=== PATIENT | male | born 1960 | race Caucasian/White ===

== ENCOUNTER 2019-03-05 11:12 | Emergency (ER) | payer MEDICARE ==
[2019-03-05] MEDS ORDERED: CARAFATE1 G/10 ML PO (11:30)
[2019-03-05] MEDS ORDERED: EDURANT PO (11:31)
[2019-03-05] MEDS ORDERED: TIVICAY50 MG PO (11:32)
[2019-03-05] MEDS ORDERED: PREZCOBIX PO (11:32)
[2019-03-05] MEDS ORDERED: MIDODRINE HCL10 MG PO (11:33)
[2019-03-05] MEDS ORDERED: ULTRAM50 MG PO (11:39)
[2019-03-05 12:08] LABS: BASOPHILS 0.3 % (0-2); EOSINOPHILS 2.6 % (0-7); HEMATOCRIT 25.4 % (42.0-54.0); HEMOGLOBIN 8.1 g/dL (13.5-17.5); IMMATURE GRANULOCYTES 0.6 % (0-5); LYMPHOCYTES 15.6 % (15-50); MCH 27.6 pg (26.0-34.0); MCHC 31.9 g/dL (31.0-37.0); MCV 86.7 fL (80.0-100.0); MEAN PLATELET VOLUME 8.2 fL (7.4-10.4); MONOCYTES 8.7 % (2-11); NEUTROPHILS 72.2 % (40-80); PLATELET COUNT 354 10x3/uL (130-400); RBC 2.93 10x6/uL (4.20-6.10); RDW 18.4 % (11.5-14.5); WBC 13.2 10x3/uL (4.8-10.8)
[2019-03-05 12:21] LABS: ALBUMIN 2.1 g/dL (3.4-5.0); ALKALINE PHOSPHATASE 40 U/L (46-116); ALT (SGPT) 8 U/L (10-68); BILIRUBIN - TOTAL 1.23 mg/dL (0.2-1.3); CALC OSMOLALITY 272 mosm/kg (275-300); CALCIUM 9.2 mg/dL (8.5-10.1); CARBON DIOXIDE 29.9 mmol/L (21.0-32.0); CHLORIDE - SERUM 98 mmol/L (98-107); CREATININE - SERUM 3.7 mg/dL (0.6-1.3); GLUCOSE 99 mg/dL (74-106); POTASSIUM - SERUM 3.6 mmol/L (3.5-5.1); PROTEIN - SERUM 6.1 g/dL (6.4-8.2); SODIUM 135 mmol/L (136-145); UREA NITROGEN 20 mg/dL (7-18); eGFR NON AFRICAN AMERICAN 18 mL/min (90-120)
[2019-03-05 12:31] LABS: AMYLASE - SERUM 66 U/L (25-115); CKMB 0.6 U/L (0.0-3.6); CREATINE KINASE 23 UL (21-232); LIPASE 145 U/L (73-393); MAGNESIUM - SERUM 1.4 mg/dL (1.8-2.4); TROPONIN-I < 0.017 ng/mL (0.000-0.060)
[2019-03-05 13:23] LABS: APTT 43.5 SECONDS (22.8-39.4); INR 1.23 (0.85-1.17)
[2019-03-05] MEDS ORDERED: ZOFRAN ODT4 MG/UDTAB PO (14:02)
[2019-03-05] MEDS ORDERED: LOMOTIL 2.5-0.1 EAC1 PO (14:02)
[2019-03-05 14:36] VITALS: BP 123/81
[2019-03-07 15:42] VITALS: BMI 18.8
== END 2019-03-05 14:37 | disposition home or self-care (01) ==
LOC: D.ER 11:12
PROVIDERS: Emergency Medicine
DX: R19.7 Diarrhea, unspecified (principal); D64.9 Anemia, unspecified; I12.0 Hypertensive chronic kidney disease with stage 5 chronic kidney disease or end stage renal disease; N18.6 End stage renal disease; E83.42 Hypomagnesemia; R11.10 Vomiting, unspecified

== ENCOUNTER 2019-03-06 14:15 | Inpatient (IN) | payer MEDICARE ==
[~2019-03-06] VITALS: Ht 170.2 cm; Wt 52.1 kg
[~2019-03-06 14:15] MED LIST: CARAFATE1 G/10 ML PO; EDURANT PO; LOMOTIL 2.5-0.1 EAC1 PO; MIDODRINE HCL10 MG PO; PREZCOBIX PO; TIVICAY50 MG PO; ULTRAM50 MG PO; ZOFRAN ODT4 MG/UDTAB PO
[2019-03-06 18:39] VITALS: BP 93/57; BMI 19.0
[2019-03-06 19:16] LABS: BASOPHILS 0.4 % (0-2); EOSINOPHILS 3.5 % (0-7); HEMATOCRIT 20.2 % (42.0-54.0); IMMATURE GRANULOCYTES 1.4 % (0-5); LYMPHOCYTES 15.7 % (15-50); MCHC 30.7 g/dL (31.0-37.0); MCV 87.8 fL (80.0-100.0); MEAN PLATELET VOLUME 8.4 fL (7.4-10.4); MONOCYTES 8.6 % (2-11); NEUTROPHILS 70.4 % (40-80); PLATELET COUNT 397 10x3/uL (130-400); RDW 18.5 % (11.5-14.5)
[2019-03-06 19:20] LABS: HEMOGLOBIN 6.2 g/dL (13.5-17.5)
[2019-03-06 19:27] LABS: INR 1.44 (0.85-1.17)
[2019-03-06 19:32] LABS: ALBUMIN 2.1 g/dL (3.4-5.0); ANION GAP 14.5 mmol/L (8-16); BILIRUBIN - TOTAL 1.16 mg/dL (0.2-1.3); CALCIUM 8.2 mg/dL (8.5-10.1); CARBON DIOXIDE 26.5 mmol/L (21.0-32.0); MAGNESIUM - SERUM 1.6 mg/dL (1.8-2.4); PROTEIN - SERUM 5.5 g/dL (6.4-8.2); VANCOMYCIN - RANDOM 5.7 ug/mL (10.0-20.0)
--- NOTE | 2019-03-06 19:40 | NUR ---
EASILY AROUSES AND ANSEWRS QUESTIONS SKIN WARM AND DRY LCTA NO IV ACCESS BED IS LOW AND LOCKED AT THIS TIME
--- NOTE | 2019-03-06 19:50 | NUR ---
NOTED CRITICLE HAND H IV ATTEMPTED BY ME X2 AND FAILED IV OBTAINED BY RN.
[2019-03-06 20:46] VITALS: BP 87/52
--- NOTE | 2019-03-07 | NUR ---
AFEW ATTEMPTS HAVE BEEN MADE TO WANG THE PRBC THAT ARE ORDERED TO BE INFUSED WITH NO RESULTS
[2019-03-07 00:53] VITALS: BP 88/50
[2019-03-07 04:14] VITALS: BP 119/49
--- NOTE | 2019-03-07 05:09 | NUR ---
I have reviewed this patient and I concur with the Shift Assessment completed by the Licensed Practical Nurse today this shift.
[2019-03-07 07:08] LABS: ALBUMIN 1.8 g/dL (3.4-5.0); ANION GAP 14.4 mmol/L (8-16); BILIRUBIN - TOTAL 0.92 mg/dL (0.2-1.3); CALCIUM 7.8 mg/dL (8.5-10.1); CARBON DIOXIDE 25.1 mmol/L (21.0-32.0); CREATININE - SERUM 5.4 mg/dL (0.6-1.3); PHOSPHOROUS 2.3 mg/dL (2.5-4.9); POTASSIUM - SERUM 4.5 mmol/L (3.5-5.1); PROTEIN - SERUM 5.1 g/dL (6.4-8.2); VANCOMYCIN - RANDOM 6.1 ug/mL (10.0-20.0)
[2019-03-07 07:18] LABS: BASOPHILS 0.4 % (0-2); EOSINOPHILS 5.8 % (0-7); IMMATURE GRANULOCYTES 2.9 % (0-5); LYMPHOCYTES 17.2 % (15-50); MCH 27.9 pg (26.0-34.0); MCV 87.4 fL (80.0-100.0); MEAN PLATELET VOLUME 8.7 fL (7.4-10.4); MONOCYTES 9.1 % (2-11); NEUTROPHILS 64.6 % (40-80); RBC 2.22 10x6/uL (4.20-6.10); RDW 16.9 % (11.5-14.5); WBC 15.9 10x3/uL (4.8-10.8)
[2019-03-07 07:26] LABS: PLATELET COUNT 308 10x3/uL (130-400)
[2019-03-07 07:27] LABS: HEMATOCRIT 19.4 % (42.0-54.0); HEMOGLOBIN 6.2 g/dL (13.5-17.5)
[2019-03-07 08:00] VITALS: BP 106/75
--- NOTE | 2019-03-07 08:07 | NUR ---
AM ROUNDS COMPLETED. INTRODUCED MYSELF TO PT PRIMARY RN FOR TODAYS SHIFT. PT IS A&O SITTING UP IN BED RESTING QUIETLY. PT HAS CRITICAL HGB AND HCT LEVELS. 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 MARIBEL HANKS PRINTING SUPERVISOR ON FLOOR AND 2 UNITS OF PRBCS HAVE BEEN ORDERED. PT VERBALIZED UNDERSTANDING. PT IS SUPPOSE TO HAVE DIALYSIS TODAY ALONG WITH SURGERY. WILL [facility] DIALYSIS TO SEE IF THEY CAN DO IT MILDRED. PT DENIES ANY DIZZINESS JUST STATES HE IS VERY WEAK AND FEELS SO SICK LATELY. NO IMMEDIATE NEEDS AT THIS TIME. WILL CTM.
--- NOTE | 2019-03-07 11:07 | NUR ---
DIALYSIS CALLED FOR PT. BROUGHT PT DOWN VIA BED ALONG WITH 2 UNITS OF BLOOD FOR PT TO RECIEVE PRIOR TO SURGERY. OBTAINED CONSENTS FOR HEMESPLIT EXCHANGE. PT VERBALIZED UNDERSTANDING AND DENIES ANY CURRENT NEEDS. WILL CTM.
--- NOTE | 2019-03-07 12:54 | NUR ---
PT C/O PAIN AND NAUSEA WHILE STILL IN DIALYSIS. CAME DOWN AND ADMINISTERED PRN ZOFRAN AND PRN BUPRENORPHINE VIA L.FA PIV. PT VOICED THANKS AND DENIES ANY FURTHER NEEDS AT THIS TIME. ABOUT 1HR REMAINING ON DIALYSIS. WILL CTM.
[2019-03-07 14:17] VITALS: BMI 18.8
--- NOTE | 2019-03-07 14:45 | NUR ---
PT TX COMPLETE. 2 UNITS PRBC'S GIVEN. 1431ML TAKEN OFF. PT B/P STARTED TO DROP AND UF WAS TURNED OFF. EPOGIN GIVEN. LUMENS HEPRANIZED, AND NEW DRESSING PLACED. REPORT GIVEN TO Ward FAY RN.
--- NOTE | 2019-03-07 15:09 | NUR ---
PT BACK FROM DIALYSIS. AWAKE A&O SITTING UP IN BED RESTING QUIETLY. PT REC'D BOTH UNITS OF PRBCS ON DIALYSIS WITHOUT ANY ISSUES OR REACTIONS NOTED. PT STILL NPO WAITING PATIENTLY FOR SURGERY. EXPLAINED TO PT NEED FOR URINE SPECIMEN ALONG WITH STOOL AND PROVIDED PT WITH SUPPLIES. PT VERBALIZED UNDERSTANDING AND DENIES ANY QUESTIONS OR CONCERNS. NO CURRENT NEEDS. WILL CTM.
[2019-03-07 15:30] LABS: HEMATOCRIT 29.4 % (42.0-54.0); HEMOGLOBIN 9.9 g/dL (13.5-17.5)
[2019-03-07 15:42] VITALS: Ht 170.2 cm; Wt 52.1 kg
[2019-03-07 16:30] VITALS: BP 110/72
--- NOTE | 2019-03-07 16:30 | MORECARE ---
CASE MANAGEMENT DISCHARGE SUMMARY PATIENT: HALLIE COE UNIT: [id number] ADM DATE: 03/06/19 AGE: 58 : 62 SEX: M ROOM/BED: D.2140 AUTHOR: WILD QUINTEROS PHYSICIAN: REFERRING PHYSICIAN: MATEO HOLLIS MD DATE OF SERVICE: 03/07/19 Discharge Plan Patient Name: HALLIE COE [facility] [facility] 1960 Planned Disposition: [facility] Facility Anticipated Discharge Date: Discharge Date: Expected LOS: Initial Reviewer: [email or web address] Initial Review Date: 03/07/2019 Generated: 03/07/19 5:30 pm DCPIA - Discharge Planning Initial Assessment Updated by [email or web address]: Kiel Goff on 03/07/19 4:26 pm * Is the patient Alert and Oriented? Yes * How many steps to enter\exit or inside your home? * PCP DALLAS GUTHRIE, [facility] IN [place] * Pharmacy [facility] - HIV MEDICATIONS * Preadmission Environment Home with Family * ADLs Partial Dependent * Partial ADLs (Assistance needed) Bathing * Equipment Nebulizer Oxygen Rolling Walker Shower Chair * Other Equipment HOME AND PORTABLE OXYGEN [facility] - MEDICAL EQUIPMENT PROVIDER * List name and contact numbers for known caregivers / representatives who currently or will assist patient after discharge: MARISOL LEWIS, MOTHER, * Verbal permission to speak to the caregivers and representatives has been obtained from the patient. No * Community resources currently utilized Other * Please name any agencies selected above. [facility]IENT [facility]IAL[facility]IS, [facility], [facility], [facility], [facility] * Additional services required to return to the preadmission environment? Yes * Can the patient safely return to the preadmission environment? No * Has this patient been hospitalized within the prior 30 days at any hospital? No Patient Name: HALLIE COE Page [id number] at 1630 All edits/amendments must be made on the electronic document DICTATION DATE: 03/07/191628 SOUND TESTER: EDU 03/07/19 162 RPT#: [id number] DC DATE: STATUS: ADM IN [facility] [address] [place] [address] END OF REPORT
--- NOTE | 2019-03-07 16:55 | MORECARE ---
CASE MANAGEMENT DISCHARGE SUMMARY PATIENT: HALLIE COE UNIT: [id number] ADM DATE: 03/06/19 AGE: 58 : 62 SEX: M ROOM/BED: D.2140 AUTHOR: ALDAIR,DOC PHYSICIAN: REFERRING PHYSICIAN: MATEO HOLLIS MD DATE OF SERVICE: 03/07/19 Discharge Plan Patient Name: HALLIE COE [facility] [facility] 1960 Planned Disposition: Jail Facility Anticipated Discharge Date: Discharge Date: Expected LOS: Initial Reviewer: [email or web address] Initial Review Date: 03/07/2019 Generated: 03/07/19 5:54 pm Comments DCP- Discharge Planning Updated by [email or web address]: Kiel Goff on 03/07/19 3:[address] Patient Name: HALLIE COE Encounter No: [id number] : 1960 Primary Insurance: MEDICARE A & B Anticipated DC Date: Planned Disposition: Jail Facility External Planned Provider: FIRST ACCEPTING FACILITY IN [place], MEDICARE REHAB BED DISCHARGE PLANNING NOTE: CM RECEIVED ORDER FOR "JAIL BASICALLY". CM MET WITH PT IN ROOM TO DISCUSS DISCHARGE PLANNING AND NEEDS. PT REPORTS LIVING AT HOME DEPENDENTLY WITH HIS MOTHER AND STEP FATHER. PT REPORTS INDEPENDENCE IN MEDICATION MANAGEMENT AND TOILETING. PT STATES HE WAS UNABLE TO FEED HIMSELF; CM ASKED FOR CLAIFICATION, PT STATES THAT HIS PARENTS HAD LOCKED HIM IN HIS ROOM AND WOULD NOT GIVE HIM ANY FOOD OR WATER. PT STATES HE IS NOT ABLE TO COOK FOR HIMSELF AND HIS MOTHER WOULD NOT COOK FOR HIM OR BRING HIM FOOD OR WATER AND EXPECTED HIM TO GET UP AND DO IT HIMSELF. PT STATES HE HAD NO BATH FOR 6 WEEKS BECAUSE HE IS NOT ABLE AND HIS PARENTS WILL NOT HELP HIM. PT HAS SHOWER CHAIR, ROLLING WALKER WITH SEAT AND BRAKES, NEBLUIZER AND HOME AND PORTABLE OXYGEN FROM [facility] OUT OF [facility]. PT HAS NO OUTSIDE SERVICES ASSISTING IN THE HOME. PT DEPENDS ON HIS MOTHER FOR TRANSPORT TO AND FROM OUTPATIENT DIALYSIS IN [place] ON [address] SCHEDULE. CM DISCUSSED AVAILABILITY OF HOME HEALTH, REHAB SERVICES AND MEDICAL EQUIPMENT. PT STATES HE CANNOT TAKE CARE OF HIMSELF AND WANTS JAIL PLACEMENT IN [place], NO FACILITY PREFERENCE, SO HE CAN BE CLOSE TO HOME AND MAYBE BE ABLE TO VISIT HER ONCE IN A WHILE. 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 PT DOES NOT YET RECEIVE DISABILITY AND HAS AN SOCIAL SERVICES ANALYST FIGHTING FOR IT. PT REPORTS HE HAD BLUE CROSS PRIVATE OPTION BUT WAS DROPPED WHEN HE BECAME MEDICARE ELIGIBLE AND HAS TO REAPPLY FOR MEDICAID. PT REPORTS HAVING BIPOLAR AND MAJOR DEPRESSIVE DISORDER. CM EXPLAINED THAT CM WILL NEED TO COMPLETE BJORN SCREENING WITH PT'S ASSISTANCE. CM ALSO EXPLAINED THAT CM WILL BE CALLING ADULT PROTECTIVE SERVICES WITH PT'S ALLEGATION OF NEGLECT BY HIS PARENTS. CM EXPLAINED THAT PT'S MEDICATIONS MAY BE TOO EXPENSIVE TO ENTER CUSTODIAL FACILITY; PT STATES IF THAT IS A PROBLEM HE COULD JUST NOT TAKE THE EXPENSIVE HIV MEDICATIONS. CM EXPLAINED PLACEMENT PROCESS AND BJORN SCREENING PROCESS. CM PROVIDED CHOICE LISTING FOR NURSING HOMES, PT SIGNED CHOICE FOR ANY IN [place]. CM CALLED ADULT PROTECTIVE SERVICES, , PROVIDED REFERRAL FOR ALLEGATIONS OF NEGLECT. . CM TO COMPLETE BJORN SCREENING AND SEND REFERRALS TO ALL JAIL'S IN [place] FOR SKILLED AND WAREHOUSE PACKER CARE PLACEMENT CONSIDERATION SOON POSSIBLE. Kiel Goff, CASE MANAGEMENT DCPIA - Discharge Planning Initial Assessment Updated by [email or web address]: Kiel Goff on 03/07/19 4:26 pm * Is the patient Alert and Oriented? Yes * How many steps to enter\\exit or inside your home? * PCP DALLAS GUTHRIE, [facility] [place] * Pharmacy [facility] [place] - HIV MEDICATIONS * Preadmission Environment Home with Family * ADLs Partial Dependent * Partial ADLs (Assistance needed) Bathing * Equipment Nebulizer Oxygen Rolling Walker Shower Chair * Other Equipment HOME AND PORTABLE OXYGEN [facility] - MEDICAL EQUIPMENT PROVIDER * List name and contact numbers for known caregivers / representatives who currently or will assist patient after discharge: MARISOL LEWIS, MOTHER, * Verbal permission to speak to the caregivers and representatives has been obtained from the patient. No * Community resources currently utilized Other * Please name any agencies selected above. OUTPATIENT DIALYSIS, [facility], [facility], [facility], [facility] * Additional services required to return to the preadmission environment? Yes * Can the patient safely return to the preadmission environment? No * Has this patient been hospitalized within the prior 30 days at any hospital? No Coverage Notice Reviewer: [id number] Sam Goff Notice Issued Date-Time: 03/07/2019 16:10 Notice Type: Patient Choice Letter Notice Delivered To: Patient Relationship to Patient: Pet Sitting Name: Delivery Method: HAND - Hand Delivered Gunjan Days: Prior Verbal Notification: Recipient Understood Notice: Yes Recipient Signature: Yes Med Rec Note Co-signed by Attending: Coverage Notice Comment: ANY NURSING FACILITY IN [facility] export: 03/07/19 3:30 pm Patient Name: HALLIE COE Page [id number] at 1655 All edits/amendments must be made on the electronic document DICTATION DATE: 03/07/191653 COMMUNITY NUTRITION EDUCATOR: EDU 03/07/191653 RPT#: [id number] DC DATE: STATUS: ADM IN [facility] [address] [place] [address] END OF REPORT
--- NOTE | 2019-03-07 17:41 | NUR ---
PT C/O NAUSEA AND PAIN REQUESTING AND PROVIDED WITH PRN PAIN MEDICATION. PT SITTING UP IN BED EATING A DINNER TRAY WHEN HE WAS SUPPOSE TO BE NPO AND HAD A SIGN UP ON HIS DOOR HOWEVER DIETARY STILL PROCEEDED TO FEED PT AND PT JUST ATE ABOUT 75% OF HIS DINNER. CALLED SURGERY AND THEY CANCELLED IT, UNSURE IF THEY WERE ABLE TO GET TO HIM TODAY ANYWAYS. PT VERBALIZED UNDERSTANDING TO BE NPO AFTER MIDNIGHT TONIGHT FOR PLANNED SURGERY. WILL MAKE HIM NPO AFTER MIDNIGHT AND CPOC.
--- NOTE | 2019-03-07 19:25 | NUR ---
RESUMING PT CARE. PT LAYING IN BED RESTING COMFORTABLY WITH EYES CLOSED. NO S/S OF DISTRESS. BED IN LOW POSITION WITH CALL LIGHT IN REACH. WILL CONTINUE TO MONITOR AND FOLLOW PLAN OF CARE.
[2019-03-07 21:16] VITALS: BP 103/58
[2019-03-07 23:59] VITALS: BP 105/62
[2019-03-08] VITALS (12 sets, daily range): BP systolic 101–135; BP diastolic 52–79
--- NOTE | 2019-03-08 04:43 | NUR ---
I have reviewed this patient and I concur with the Shift Assessment completed by the Licensed Practical Nurse today this shift.
[2019-03-08 07:04] LABS: ALBUMIN 2.2 g/dL (3.4-5.0); ANION GAP 16.1 mmol/L (8-16); BASOPHILS 0.4 % (0-2); BILIRUBIN - TOTAL 0.49 mg/dL (0.2-1.3); CALCIUM 8.2 mg/dL (8.5-10.1); CARBON DIOXIDE 24.2 mmol/L (21.0-32.0); CREATININE - SERUM 3.6 mg/dL (0.6-1.3); EOSINOPHILS 3.9 % (0-7); HEMATOCRIT 26.7 % (42.0-54.0); HEMOGLOBIN 8.9 g/dL (13.5-17.5); IMMATURE GRANULOCYTES 2.7 % (0-5); LYMPHOCYTES 15.6 % (15-50); MCH 28.3 pg (26.0-34.0); MCHC 33.3 g/dL (31.0-37.0); MEAN PLATELET VOLUME 8.9 fL (7.4-10.4); MONOCYTES 7.7 % (2-11); NEUTROPHILS 69.7 % (40-80); PLATELET COUNT 301 10x3/uL (130-400); POTASSIUM - SERUM 3.3 mmol/L (3.5-5.1); PROTEIN - SERUM 6.1 g/dL (6.4-8.2); RDW 17.3 % (11.5-14.5); VANCOMYCIN - RANDOM 3.9 ug/mL (10.0-20.0); WBC 18.4 10x3/uL (4.8-10.8)
[2019-03-08 07:05] LABS: RBC 3.14 10x6/uL (4.20-6.10)
[2019-03-08 07:27] LABS: HEPATITIS C ANTIBODY 0.1 S/CO RAT (0.0-0.9)
--- NOTE | 2019-03-08 08:01 | NUR ---
PATIENT NOTIFIED OF NPO. VERBALIZED UNDERSTANDING. ZOFRAN GIVEN IVP SLOWLY OVER 2 MINUTES FOR NAUSEA. IV INTACT. CALL LIGHT WITHIN REACH.
--- NOTE | 2019-03-08 09:02 | MORECARE ---
CASE MANAGEMENT DISCHARGE SUMMARY PATIENT: HALLIE COE UNIT: [id number] ADM DATE: 03/06/19 AGE: 58 : 62 SEX: M ROOM/BED: D.2140 AUTHOR: ALDAIR,DOC PHYSICIAN: REFERRING PHYSICIAN: MATEO HOLLIS MD DATE OF SERVICE: 03/08/19 Discharge Plan Patient Name: HALLIE COE Facility: [facility]:[place] : 1960 Planned Disposition: Custodial Facility Anticipated Discharge Date: Discharge Date: Expected LOS: Initial Reviewer: [email or web address] Initial Review Date: 03/07/2019 Generated: 03/08/19 10:02 am Comments DCP- Discharge Planning Updated by [email or web address]: Kiel Goff on 03/07/19 3:[address] Patient Name: HALLIE COE Encounter No: [id number] : 1960 Primary Insurance: MEDICARE A & B Anticipated DC Date: Planned Disposition: Custodial Facility External Planned Provider: FIRST ACCEPTING FACILITY IN [place], MEDICARE REHAB BED DISCHARGE PLANNING NOTE: CM RECEIVED ORDER FOR "[facility]ALLY". CM MET WITH PT IN ROOM TO DISCUSS DISCHARGE PLANNING AND NEEDS. PT REPORTS LIVING AT HOME DEPENDENTLY WITH HIS MOTHER AND STEP FATHER. PT REPORTS INDEPENDENCE IN MEDICATION MANAGEMENT AND TOILETING. PT STATES HE WAS UNABLE TO FEED HIMSELF; CM ASKED FOR CLAIFICATION, PT STATES THAT HIS PARENTS HAD LOCKED HIM IN HIS ROOM AND WOULD NOT GIVE HIM ANY FOOD OR WATER. PT STATES HE IS NOT ABLE TO COOK FOR HIMSELF AND HIS MOTHER WOULD NOT COOK FOR HIM OR BRING HIM FOOD OR WATER AND EXPECTED HIM TO GET UP AND DO IT HIMSELF. PT STATES HE HAD NO BATH FOR 6 WEEKS BECAUSE HE IS NOT ABLE AND HIS PARENTS WILL NOT HELP HIM. PT HAS SHOWER CHAIR, ROLLING WALKER WITH SEAT AND BRAKES, NEBLUIZER AND HOME AND PORTABLE OXYGEN FROM [facility] [place] OUT OF [facility]. PT HAS NO OUTSIDE SERVICES ASSISTING IN THE HOME. PT DEPENDS ON HIS MOTHER FOR TRANSPORT TO AND FROM OUTPATIENT DIALYSIS IN [place] ON [address] SCHEDULE. CM DISCUSSED AVAILABILITY OF HOME HEALTH, REHAB SERVICES AND MEDICAL EQUIPMENT. PT STATES HE CANNOT TAKE CARE OF HIMSELF AND WANTS [facility] PLACEMENT IN [place], NO FACILITY PREFERENCE, SO HE CAN BE CLOSE TO HOME AND MAYBE BE ABLE TO VISIT HER ONCE IN A WHILE. 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 PT DOES NOT YET RECEIVE DISABILITY AND HAS AN DREDGE OPERATOR FIGHTING FOR IT. PT REPORTS HE HAD BLUE CROSS PRIVATE OPTION BUT WAS DROPPED WHEN HE BECAME MEDICARE ELIGIBLE AND HAS TO REAPPLY FOR MEDICAID. PT REPORTS HAVING BIPOLAR AND MAJOR DEPRESSIVE DISORDER. CM EXPLAINED THAT CM WILL NEED TO COMPLETE BJORN SCREENING WITH PT'S ASSISTANCE. CM ALSO EXPLAINED THAT CM WILL BE CALLING ADULT PROTECTIVE SERVICES WITH PT'S ALLEGATION OF NEGLECT BY HIS PARENTS. CM EXPLAINED THAT PT'S MEDICATIONS MAY BE TOO EXPENSIVE TO ENTER USP FACILITY; PT STATES IF THAT IS A PROBLEM HE COULD JUST NOT TAKE THE EXPENSIVE HIV MEDICATIONS. CM EXPLAINED PLACEMENT PROCESS AND BJORN SCREENING PROCESS. CM PROVIDED CHOICE LISTING FOR NURSING HOMES, PT SIGNED CHOICE FOR ANY IN [place]. CM CALLED ADULT PROTECTIVE SERVICES, , PROVIDED REFERRAL FOR ALLEGATIONS OF NEGLECT. . CM TO COMPLETE BJORN SCREENING AND SEND REFERRALS TO ALL CHCF'S IN [place] FOR SKILLED AND USP CARE PLACEMENT CONSIDERATION SOON POSSIBLE. Kiel Goff, CASE MANAGEMENT DCPIA - Discharge Planning Initial Assessment Updated by [id number]: Kiel Goff on 03/07/19 4:26 pm * Is the patient Alert and Oriented? Yes * How many steps to enter\\exit or inside your home? * PCP DALLAS GUTHRIE, [facility] IN [place] * Pharmacy [facility] - [facility] * Preadmission Environment Home with Family * ADLs Partial Dependent * Partial ADLs (Assistance needed) Bathing * Equipment Nebulizer Oxygen Rolling Walker Shower Chair * Other Equipment HOME AND PORTABLE OXYGEN [employer] - MEDICAL EQUIPMENT PROVIDER * List name and contact numbers for known caregivers / representatives who currently or will assist patient after discharge: MARISOL LEWIS, MOTHER, * Verbal permission to speak to the caregivers and representatives has been obtained from the patient. No * Community resources currently utilized Other * Please name any agencies selected above. OUTPATIENT DIALYSIS, [facility], [facility], [facility], [facility] * Additional services required to return to the preadmission environment? Yes * Can the patient safely return to the preadmission environment? No * Has this patient been hospitalized within the prior 30 days at any hospital? No External Providers External Provider: [facility] Next Contact Date: 03/08/2019 Service Request Date: Service Type: Resolution: Reviewer: Comments: External Provider: [facility] Next Contact Date: 03/08/2019 Service Request Date: Service Type: Resolution: Reviewer: Comments: External Provider: [facility] Next Contact Date: 03/08/2019 Service Request Date: Service Type: Resolution: Reviewer: Comments: External Provider: [facility] Next Contact Date: 03/08/2019 Service Request Date: Service Type: Resolution: Reviewer: Comments: External Provider: [facility] Next Contact Date: 03/08/2019 Service Request Date: Service Type: Resolution: Reviewer: Comments: Coverage Notice Reviewer: [email or web address] Sam Goff Notice Issued Date-Time: 03/07/2019 16:10 Notice Type: Patient Choice Letter Notice Delivered To: Patient Relationship to Patient: Content Assistant Name: Delivery Method: HAND - Hand Delivered Gunjan Days: Prior Verbal Notification: Recipient Understood Notice: Yes Recipient Signature: Yes Med Rec Note Co-signed by Attending: Coverage Notice Comment: ANY NURSING FACILITY IN [place] Last DP export: 03/07/19 3:54 pm Patient Name: HALLIE COE Page 38063 at 0902 All edits/amendments must be made on the electronic document DICTATION DATE: 03/08/19900 TUGBOAT CAPTAIN: EDU 03/08/19900 RPT#: [id number] DC DATE: STATUS: ADM IN [facility] [address] [place] [address] END OF REPORT
[2019-03-08 09:14] LABS: FOLATE (FOLIC ACID) - SERUM 3.5 ng/mL (>3.0)
--- NOTE | 2019-03-08 10:13 | MORECARE ---
CASE MANAGEMENT DISCHARGE SUMMARY PATIENT: HALLIE COE UNIT: [id number] ADM DATE: 03/06/19 AGE: 58 : 62 SEX: M ROOM/BED: D.2140 AUTHOR: ALDAIR,DOC PHYSICIAN: REFERRING PHYSICIAN: MATEO HOLLIS MD DATE OF SERVICE: 03/08/19 Discharge Plan Patient Name: HALLIE COE Facility: [facility]:[place] : 1960 Planned Disposition: Snf Facility Anticipated Discharge Date: Discharge Date: Expected LOS: Initial Reviewer: [id number] Initial Review Date: 03/07/2019 Generated: 03/08/19 11:13 am Comments DCP- Discharge Planning Updated by [id number]: Kiel Goff on 03/08/19 9:[address] Patient Name: HALLIE COE Encounter No: [id number] : 1960 Primary Insurance: MEDICARE A & B Anticipated DC Date: Planned Disposition: Snf Facility External Planned Provider: [facility] IN [place], MEDICARE REHAB BED DISCHARGE PLANNING NOTE: CM MET WITH PT IN ROOM TO COMPLETE BJORN SCREENING FORM. BJORN COMPLETED, PT SIGNED. PT REPORTS HE IS NOT SURE NOW IF HE WANTS TO GO TO [facility] AT DISCHARGE AND STATES HE MAY JUST GO BACK HOME WITH HOME HEALTH. CM ASKED ABOUT THE NEGLECTFUL CARE PT REPORTED YESTERDAY, BRING LOCKED IN ROOM WITH NO FOOD OR WATER. PT STATES THAT HE IS SAFE AT HOME WITH HIS PARENTS AND JUST NEEDS TO FIND A WAY TO GET ASSISTANCE AT HOME TO "TAKE THE PRESSURE OFF OF THEM". PT HAS TALKED TO MEDICAID OFFICE VIA PHONE TODAY AND THEY ARE SENDING HIM INFORMATION REGARDING HIS "QMB" MEDICAID. PT STATES IF HE GOES HOME WITH HOME HEALTH, HE WANTS [facility] FOR PHYSICAL THERAPY AND VINEYARD WORKER TO ASSIST WITH BATHING. CHOICE SIGNED. CM PROVIDED PT WITH HOME HEALTH LISTING AND EXPLAINED HOW TO ACCESS MEDICARE REVIEW INFORMATION FOR PROVIDERS. PT WOULD LIKE CM TO CONTINUE WITH LOOKING FOR [facility], BUT FOR REHAB SERVICES. CM [facility], [facility] AND [facility] IN [place]. ADULT PROTECTIVE SERVICES REFERRAL MADE 03-07-19 FOR ALLEGATIONS OF NEGLECT. . CM WAITING PHYSICIAN SIGNATURES ON BJORN SCREENING AND WILL FAX TO [facility] ONCE PHYSICIAN SIGNATURE HAS BEEN OBTAINED. Kiel Goff, CASE MANAGEMENT DCP- Discharge Planning Updated by [id number]: Kiel Goff on 03/07/19 3:[address] Patient Name: HALLIE COE Encounter No: [id number] : 1960 Primary Insurance: MEDICARE A & B Anticipated DC Date: Planned Disposition: Snf Facility External Planned Provider: FIRST ACCEPTING FACILITY IN [place], MEDICARE REHAB BED DISCHARGE PLANNING NOTE: CM RECEIVED ORDER FOR "[facility]". CM MET WITH PT IN ROOM TO DISCUSS DISCHARGE PLANNING AND NEEDS. PT REPORTS LIVING AT HOME DEPENDENTLY WITH HIS MOTHER AND STEP FATHER. PT REPORTS INDEPENDENCE IN MEDICATION MANAGEMENT AND TOILETING. PT STATES HE WAS UNABLE TO FEED HIMSELF; CM ASKED FOR CLAIFICATION, PT STATES THAT HIS PARENTS HAD LOCKED HIM IN HIS ROOM AND WOULD NOT GIVE HIM ANY FOOD OR WATER. PT STATES HE IS NOT ABLE TO COOK FOR HIMSELF AND HIS MOTHER WOULD NOT COOK FOR HIM OR BRING HIM FOOD OR WATER AND EXPECTED HIM TO GET UP AND DO IT HIMSELF. PT STATES HE HAD NO BATH FOR 6 WEEKS BECAUSE HE IS NOT ABLE AND HIS PARENTS WILL NOT HELP HIM. PT HAS SHOWER CHAIR, ROLLING WALKER WITH SEAT AND BRAKES, NEBLUIZER AND HOME AND PORTABLE OXYGEN FROM [facility]. PT HAS NO OUTSIDE SERVICES ASSISTING IN THE HOME. PT DEPENDS ON HIS MOTHER FOR TRANSPORT TO AND FROM OUTPATIENT DIALYSIS IN [place] ON [address] SCHEDULE. CM DISCUSSED AVAILABILITY OF HOME HEALTH, REHAB SERVICES AND MEDICAL EQUIPMENT. PT STATES HE CANNOT TAKE CARE OF HIMSELF AND WANTS [facility] PL[facility] IN [place], NO FACILITY PREFERENCE, SO HE CAN BE CLOSE TO HOME AND MAYBE BE ABLE TO VISIT HER ONCE IN A WHILE. 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 PT DOES NOT YET RECEIVE DISABILITY AND HAS AN PRECISION FARMING COORDINATOR FIGHTING FOR IT. PT REPORTS HE HAD BLUE CROSS PRIVATE OPTION BUT WAS DROPPED WHEN HE BECAME MEDICARE ELIGIBLE AND HAS TO REAPPLY FOR MEDICAID. PT REPORTS HAVING BIPOLAR AND MAJOR DEPRESSIVE DISORDER. CM EXPLAINED THAT CM WILL NEED TO COMPLETE BJORN SCREENING WITH PT'S ASSISTANCE. CM ALSO EXPLAINED THAT CM WILL BE CALLING ADULT PROTECTIVE SERVICES WITH PT'S ALLEGATION OF NEGLECT BY HIS PARENTS. CM EXPLAINED THAT PT'S MEDICATIONS MAY BE TOO EXPENSIVE TO ENTER SENIOR LIVING FACILITY; PT STATES IF THAT IS A PROBLEM HE COULD JUST NOT TAKE THE EXPENSIVE HIV MEDICATIONS. CM EXPLAINED PLACEMENT PROCESS AND BJORN SCREENING PROCESS. CM PROVIDED CHOICE LISTING FOR NURSING HOMES, PT SIGNED CHOICE FOR ANY IN [place]. CM CALLED ADULT PROTECTIVE SERVICES, , PROVIDED REFERRAL FOR ALLEGATIONS OF NEGLECT. . CM TO COMPLETE BJORN SCREENING AND SEND REFERRALS TO ALL [facility] IN [place] FOR SKILLED AND LEADERSHIP PROGRAM INTERNSHIP CARE PLACEMENT CONSIDERATION SOON POSSIBLE. Kiel Goff, CASE MANAGEMENT DCPIA - Discharge Planning Initial Assessment Updated by [email or web address]: Kiel Goff on 03/07/19 4:26 pm * Is the patient Alert and Oriented? Yes * How many steps to enter\\exit or inside your home? * PCP [facility], [facility] IN [place] * [facility] - HIV MEDICATIONS * Preadmission Environment Home with Family * ADLs Partial Dependent * Partial ADLs (Assistance needed) Bathing * Equipment Nebulizer Oxygen Rolling Walker Shower Chair * Other Equipment HOME AND PORTABLE OXYGEN [facility] - MEDICAL EQUIPMENT PROVIDER * List name and contact numbers for known caregivers / representatives who currently or will assist patient after discharge: MARISOL LEWIS, MOTHER, * Verbal permission to speak to the caregivers and representatives has been obtained from the patient. No * Community resources currently utilized Other * Please name any agencies selected above. OUTPATIENT DIALYSIS, [facility], [facility], 1100, [facility] * Additional services required to return to the preadmission environment? Yes * Can the patient safely return to the preadmission environment? No * Has this patient been hospitalized within the prior 30 days at any hospital? No Coverage Notice Reviewer: [id number] Sam Goff Notice Issued Date-Time: 03/07/2019 16:10 Notice Type: Patient Choice Letter Notice Delivered To: Patient Relationship to Patient: Intranet Developer Name: Delivery Method: HAND - Hand Delivered Gunjan Days: Prior Verbal Notification: Recipient Understood Notice: Yes Recipient Signature: Yes Med Rec Note Co-signed by Attending: Coverage Notice Comment: ANY NURSING FACILITY IN [place] Reviewer: [id number] Sam Goff Notice Issued Date-Time: 03/08/2019 9:25 Notice Type: Patient Choice Letter Notice Delivered To: Patient Relationship to Patient: Intranet Developer Name: Delivery Method: HAND - Hand Delivered Gunjan Days: Prior Verbal Notification: Recipient Understood Notice: Yes Recipient Signature: Yes Med Rec Note Co-signed by Attending: Coverage Notice Comment: [facility] Last DP export: 03/08/19 8:02 am Patient Name: HALLIE COE Page [phone] at 1013 All edits/amendments must be made on the electronic document DICTATION DATE: 03/08/19 1012 WELL SHOOTER: EDU 03/08/19 1012 RPT#: [id number] DC DATE: STATUS: ADM IN [facility] [address] [place] [address] END OF REPORT
--- NOTE | 2019-03-08 12:30 | NUR ---
PATIENT BACK FROM SURGERY AT THIS TIME WITH IV INTACT. NO COMPLAINTS. DC'D LEFT WRIST IV WITH CATH TIP INTACT. PATIENT STATED IT WASNT WORKING. NEW IV IN LEFT FA STARTED IN SURGERY. HEMASPLIT AND DRESSING INTACT. CALL LIGHT WITHIN REACH.
--- NOTE | 2019-03-08 14:42 | OP ---
PATIENT NAME: HALLIE COE MEDICAL RECORD: [id number] :62 LOCATION:D. D.2140 ADMISSION DATE:03/06/19 SURGEON: MAXIMUS LOPEZ MD DATE OF OPERATION: 03/08/2019 SURGEON: Maximus Lopez MD (JJ) PREOPERATIVE DIAGNOSIS: End-stage renal disease with infected hemodialysis catheter. POSTOPERATIVE DIAGNOSIS: End-stage renal disease with infected hemodialysis catheter. PROCEDURES: 1. Removal of right internal jugular tunneled HemoSplit catheter. 2. Insertion of a tunneled left internal jugular HemoSplit catheter with ultrasound guidance. ANESTHESIA: General. COMPLICATIONS: None. SPECIMENS: Left internal jugular HemoSplit catheter. Case was clean. OPERATIVE COURSE: After consent was obtained, the patient was taken to the operating room and placed in the supine position on the operating room table. The right and left chest were prepped and draped in typical sterile fashion. An Ioban dressing was placed across the chest. The sutures were removed in the right IJ catheter. The tunnel tract was dissected with sharp scissor dissection until the cuff was freed. The catheter was removed and passed off the field. Gown and gloves were changed at this time. The left internal jugular vein was identified with ultrasound. It was cannulated with ultrasound guidance. A wire was advanced to the needle and advanced to the atriocaval junction under direct fluoroscopy. The needle was removed. A stab incision was made with #11 blade scalpel. The dilators were passed with the wire in a standard Seldinger fashion, dilating the tract. The dilator and breakaway sheath were then passed over the wire in a standard Seldinger fashion. A skin incision was made in the left chest wall using a #15 blade scalpel after the administration of 20 cc of local anesthetic. The catheter was tunneled from the skin incision site in the left chest to the neck incision site. The wire and dilator were removed from the breakaway sheath. The catheter was advanced to the breakaway sheath and advanced to the atriocaval junction under fluoroscopy. The breakaway sheath was removed. The needle stick site was closed with 3-0 Vicryl suture. A Biopatch was placed. The catheter was secured to the skin using 2-0 nylon and a sterile Tegaderm dressing. Both ports were aspirated and flushed. At the end of the case, all needle and instrument counts were correct. No complications occurred. The patient was extubated and transferred to the PACU in stable condition. TRANSINT:[id number] Voice Confirmation ID: [id number] DOCUMENT ID: [id number] OPERATIVE REPORT [id number] HALLIE COE,MAXIMUS Goff MD at 1442 CC: [id number] DICTATION DATE: 03/08/19 1200 DEPUTY ASSESSOR: 03/08/19 1233 [place] [address]
[2019-03-08 15:36] LABS: HEMATOCRIT 24.3 % (42.0-54.0)
--- NOTE | 2019-03-08 16:17 | MORECARE ---
CASE MANAGEMENT DISCHARGE SUMMARY PATIENT: HALLIE COE UNIT: [id number] ADM DATE: 03/06/19 AGE: 58 : 62 SEX: M ROOM/BED: D.2140 AUTHOR: ALDAIR,DOC PHYSICIAN: REFERRING PHYSICIAN: MATEO HOLLIS MD DATE OF SERVICE: 03/08/19 Discharge Plan Patient Name: HALLIE COE Facility: [facility]:[place] : 1960 Planned Disposition: Custodial Facility Anticipated Discharge Date: Discharge Date: Expected LOS: Initial Reviewer: [id number] Initial Review Date: 03/07/2019 Generated: 03/08/19 5:17 pm Comments DCP- Discharge Planning Updated by [id number]: Kiel Goff on 03/08/19 3:[address] Patient Name: HALLIE COE Encounter No: [id number] : 1960 Primary Insurance: MEDICARE A & B Anticipated DC Date: Planned Disposition: Custodial Facility External Planned Provider: [facility] IN [place], MEDICARE REHAB BED DISCHARGE PLANNING NOTE: CM MET WITH PT IN ROOM TO COMPLETE BJORN SCREENING FORM. BJORN COMPLETED, PT SIGNED. PT REPORTS HE IS NOT SURE NOW IF HE WANTS TO GO TO [facility] AT DISCHARGE AND STATES HE MAY JUST GO BACK HOME WITH HOME HEALTH. CM ASKED ABOUT THE NEGLECTFUL CARE PT REPORTED YESTERDAY, BRING LOCKED IN ROOM WITH NO FOOD OR WATER. PT STATES THAT HE IS SAFE AT HOME WITH HIS PARENTS AND JUST NEEDS TO FIND A WAY TO GET ASSISTANCE AT HOME TO "TAKE THE PRESSURE OFF OF THEM". PT HAS TALKED TO MEDICAID OFFICE VIA PHONE TODAY AND THEY ARE SENDING HIM INFORMATION REGARDING HIS "QMB" MEDICAID. PT STATES IF HE GOES HOME WITH HOME HEALTH, HE WANTS [facility] FOR PHYSICAL THERAPY AND ART DIRECTOR TO ASSIST WITH BATHING. CHOICE SIGNED. CM PROVIDED PT WITH HOME HEALTH LISTING AND EXPLAINED HOW TO ACCESS MEDICARE REVIEW INFORMATION FOR PROVIDERS. PT WOULD LIKE CM TO CONTINUE WITH LOOKING FOR [facility], BUT FOR REHAB SERVICES. CM [facility], [facility] AND [facility] IN [place]. ADULT PROTECTIVE SERVICES REFERRAL MADE 03-07-19 FOR ALLEGATIONS OF NEGLECT. . CM WAITING PHYSICIAN SIGNATURES ON BJORN SCREENING AND WILL FAX TO [facility] ONCE PHYSICIAN SIGNATURE HAS BEEN OBTAINED. Kiel Goff, CASE MANAGEMENT Appended by Kiel Goff on 03/08/2019 16:06 CDT: CM RECEIVED CALL FROM [facility], WHO INFORMED CM THAT THEY CANNOT MEET PT'S NEEDS. MARTY OF [facility] AND [facility] MET WITH PT IN ROOM FOR ASSESSMENT THIS AFTERNOON. CM NOTIFIED MAYKEL STROUD THAT SIGNATURE ON BJORN ASSESSMENT IS NEEDED. CM WAITING ADMISSION DETERMINATIONS FROM [facility], [facility] AND [facility] IN [place]. ADULT PROTECTIVE SERVICES REFERRAL MADE 03-07-19 FOR ALLEGATIONS OF NEGLECT. . CM WAITING PHYSICIAN SIGNATURES ON BJORN SCREENING AND WILL FAX TO [facility] ONCE PHYSICIAN SIGNATURE HAS BEEN OBTAINED. Kiel Goff, CASE MANAGEMENT DCP- Discharge Planning Updated by [id number]: Kiel Goff on 03/07/19 3:[address] Patient Name: HALLIE COE Encounter No: [id number] : 1960 Primary Insurance: MEDICARE A & B Anticipated DC Date: Planned Disposition: Custodial Facility External Planned Provider: FIRST ACCEPTING FACILITY IN [place], MEDICARE REHAB BED DISCHARGE PLANNING NOTE: CM RECEIVED ORDER FOR "[facility] BASICALLY". CM MET WITH PT IN ROOM TO DISCUSS DISCHARGE PLANNING AND NEEDS. PT REPORTS LIVING AT HOME DEPENDENTLY WITH HIS MOTHER AND STEP FATHER. PT REPORTS INDEPENDENCE IN MEDICATION MANAGEMENT AND TOILETING. PT STATES HE WAS UNABLE TO FEED HIMSELF; CM ASKED FOR CLAIFICATION, PT STATES THAT HIS PARENTS HAD LOCKED HIM IN HIS ROOM AND WOULD NOT GIVE HIM ANY FOOD OR WATER. PT STATES HE IS NOT ABLE TO COOK FOR HIMSELF AND HIS MOTHER WOULD NOT COOK FOR HIM OR BRING HIM FOOD OR WATER AND EXPECTED HIM TO GET UP AND DO IT HIMSELF. PT STATES HE HAD NO BATH FOR 6 WEEKS BECAUSE HE IS NOT ABLE AND HIS PARENTS WILL NOT HELP HIM. PT HAS SHOWER CHAIR, ROLLING WALKER WITH SEAT AND BRAKES, NEBLUIZER AND HOME AND PORTABLE OXYGEN FROM [facility]. PT HAS NO OUTSIDE SERVICES ASSISTING IN THE HOME. PT DEPENDS ON HIS MOTHER FOR TRANSPORT TO AND FROM OUTPATIENT DIALYSIS IN [place] ON [address]TS [address] SCHEDULE. CM DISCUSSED AVAILABILITY OF HOME HEALTH, REHAB SERVICES AND MEDICAL EQUIPMENT. PT STATES HE CANNOT TAKE CARE OF HIMSELF AND WANTS [facility] PLAC[facility] IN [place], NO FACILITY PREFERENCE, SO HE CAN BE CLOSE TO HOME AND MAYBE BE ABLE TO VISIT HER ONCE IN A WHILE. 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 PT REPORTS HE HAD BLUE CROSS PRIVATE OPTION BUT WAS DROPPED WHEN HE BECAME MEDICARE ELIGIBLE AND HAS TO REAPPLY FOR MEDICAID. PT REPORTS HAVING BIPOLAR AND MAJOR DEPRESSIVE DISORDER. CM EXPLAINED THAT CM WILL NEED TO COMPLETE BJORN SCREENING WITH PT'S ASSISTANCE. CM ALSO EXPLAINED THAT CM WILL BE CALLING ADULT PROTECTIVE SERVICES WITH PT'S ALLEGATION OF NEGLECT BY HIS PARENTS. CM EXPLAINED THAT PT'S MEDICATIONS MAY BE TOO EXPENSIVE TO ENTER SNF FACILITY; PT STATES IF THAT IS A PROBLEM HE COULD JUST NOT TAKE THE EXPENSIVE HIV MEDICATIONS. CM EXPLAINED PLACEMENT PROCESS AND BJORN SCREENING PROCESS. CM PROVIDED CHOICE LISTING FOR NURSING HOMES, PT SIGNED CHOICE FOR ANY IN [place]. CM CALLED ADULT PROTECTIVE SERVICES, , PROVIDED REFERRAL FOR ALLEGATIONS OF NEGLECT. . CM TO COMPLETE BJORN SCREENING AND SEND REFERRALS TO ALL FCI'S IN [place] FOR SKILLED AND CUSTODIAL CARE PLACEMENT CONSIDERATION SOON POSSIBLE. Kiel Goff, CASE MANAGEMENT DCPIA - Discharge Planning Initial Assessment Updated by [id number]: Kiel Goff on 03/07/19 4:26 pm * Is the patient Alert and Oriented? Yes * How many steps to enter\\exit or inside your home? * PCP [facility], [facility] IN [place] * [facility] - [facility]ICATIONS * Preadmission Environment Home with Family * ADLs Partial Dependent * Partial ADLs (Assistance needed) Bathing * Equipment Nebulizer Oxygen Rolling Walker Shower Chair * Other Equipment HOME AND PORTABLE OXYGEN [employer] - MEDICAL EQUIPMENT PROVIDER * List name and contact numbers for known caregivers / representatives who currently or will assist patient after discharge: MARISOL LEWIS, MOTHER, * Verbal permission to speak to the caregivers and representatives has been obtained from the patient. No * Community resources currently utilized Other * Please name any agencies selected above. OUTPATIENT DIALYSIS, [facility], [facility], 1100, FAMILY [facility]SPOR[facility] * Additional services required to return to the preadmission environment? Yes * Can the patient safely return to the preadmission environment? No * Has this patient been hospitalized within the prior 30 days at any hospital? No Coverage Notice Reviewer: [id number] Sam Goff Notice Issued Date-Time: 03/07/2019 16:10 Notice Type: Patient Choice Letter Notice Delivered To: Patient Relationship to Patient: Dye Tub Tender Name: Delivery Method: HAND - Hand Delivered Gunjan Days: Prior Verbal Notification: Recipient Understood Notice: Yes Recipient Signature: Yes Med Rec Note Co-signed by Attending: Coverage Notice Comment: ANY NURSING FACILITY IN [place] Reviewer: [id number] Sam Goff Notice Issued Date-Time: 03/08/2019 9:25 Notice Type: Patient Choice Letter Notice Delivered To: Patient Relationship to Patient: Dye Tub Tender Name: Delivery Method: HAND - Hand Delivered Gunjan Days: Prior Verbal Notification: Recipient Understood Notice: Yes Recipient Signature: Yes Med Rec Note Co-signed by Attending: Coverage Notice Comment: [facility] Last DP export: 03/08/19 9:13 am Patient Name: HALLIE COE Page [phone] at 1617 All edits/amendments must be made on the electronic document DICTATION DATE: 03/08/19 1616 CATCHER PLUG: EDU 03/08/19 161 RPT#: [id number] DC DATE: STATUS: ADM IN [facility] [address] [place] [address] END OF REPORT
--- NOTE | 2019-03-08 17:08 | MORECARE ---
CASE MANAGEMENT DISCHARGE SUMMARY PATIENT: HALLIE COE UNIT: [id number] ADM DATE: 03/06/19 AGE: 58 : 62 SEX: M ROOM/BED: D.2140 AUTHOR: ALDAIR,DOC PHYSICIAN: REFERRING PHYSICIAN: MATEO HOLLIS MD DATE OF SERVICE: 03/08/19 Discharge Plan Patient Name: HALLIE COE Facility: [facility]:[place] : 1960 Planned Disposition: Halfway Facility Anticipated Discharge Date: Discharge Date: Expected LOS: Initial Reviewer: [id number] Initial Review Date: 03/07/2019 Generated: 03/08/19 6:08 pm Comments DCP- Discharge Planning Updated by [id number]: Kiel Goff on 03/08/19 3:[address] Patient Name: HALLIE COE Encounter No: [id number] : 1960 Primary Insurance: MEDICARE A & B Anticipated DC Date: Planned Disposition: Halfway Facility External Planned Provider: [facility] IN [place], MEDICARE REHAB BED DISCHARGE PLANNING NOTE: CM MET WITH PT IN ROOM TO COMPLETE BJORN SCREENING FORM. BJORN COMPLETED, PT SIGNED. PT REPORTS HE IS NOT SURE NOW IF HE WANTS TO GO TO SHELTER AT DISCHARGE AND STATES HE MAY JUST GO BACK HOME WITH HOME HEALTH. CM ASKED ABOUT THE NEGLECTFUL CARE PT REPORTED YESTERDAY, BRING LOCKED IN ROOM WITH NO FOOD OR WATER. PT STATES THAT HE IS SAFE AT HOME WITH HIS PARENTS AND JUST NEEDS TO FIND A WAY TO GET ASSISTANCE AT HOME TO "TAKE THE PRESSURE OFF OF THEM". PT HAS TALKED TO MEDICAID OFFICE VIA PHONE TODAY AND THEY ARE SENDING HIM INFORMATION REGARDING HIS "QMB" MEDICAID. PT STATES IF HE GOES HOME WITH HOME HEALTH, HE WANTS [facility] FOR PHYSICAL THERAPY AND [employer] ASSAULT CRAFT CREWMAN TO ASSIST WITH BATHING. CHOICE SIGNED. CM PROVIDED PT WITH HOME HEALTH LISTING AND EXPLAINED HOW TO ACCESS MEDICARE REVIEW INFORMATION FOR PROVIDERS. PT WOULD LIKE CM TO CONTINUE WITH LOOKING FOR SHELTER, BUT FOR REHAB SERVICES. CM [facility], [facility] AND [facility] IN [place]. ADULT PROTECTIVE SERVICES REFERRAL MADE 03-07-19 FOR ALLEGATIONS OF NEGLECT. . CM WAITING PHYSICIAN SIGNATURES ON BJORN SCREENING AND WILL FAX TO [facility] ONCE PHYSICIAN SIGNATURE HAS BEEN OBTAINED. Kiel Goff, CASE MANAGEMENT Appended by Kiel Goff on 03/08/2019 16:06 CDT: CM RECEIVED CALL FROM [facility], WHO INFORMED CM THAT THEY CANNOT MEET PT'S NEEDS. MARTY OF [facility] AND [facility] MET WITH PT IN ROOM FOR ASSESSMENT THIS AFTERNOON. CM NOTIFIED MAYKEL STROUD THAT SIGNATURE ON BJORN ASSESSMENT IS NEEDED. CM WAITING ADMISSION DETERMINATIONS FROM [facility], [facility] AND [facility] IN [place]. ADULT PROTECTIVE SERVICES REFERRAL MADE 03-07-19 FOR ALLEGATIONS OF NEGLECT. . CM WAITING PHYSICIAN SIGNATURES ON BJORN SCREENING AND WILL FAX TO [facility] ONCE PHYSICIAN SIGNATURE HAS BEEN OBTAINED. Kiel Goff CASE MANAGEMENT Appended by Kiel Goff on 03/08/2019 16:59 CDT: CM OBTAINED PHYSICIAN SIGNATURES ON BJORN SCREENING AND FAXED TO [facility]. CM WAITING BJORN SCREENING DETERMINATION WELL ADMISSION DETERMINATIONS FROM [facility], [facility] AND [facility] IN [place]. ADULT PROTECTIVE SERVICES REFERRAL MADE 03-07-19 FOR ALLEGATIONS OF NEGLECT. . Kiel Goff, CASE MANAGEMENT DCP- Discharge Planning Updated by [id number]: Keil Goff on 03/07/19 3:[address] Patient Name: HALLIE COE Encounter No: [id number] : 1960 Primary Insurance: MEDICARE A & B Anticipated DC Date: Planned Disposition: Halfway Facility External Planned Provider: FIRST ACCEPTING FACILITY IN [place], MEDICARE REHAB BED DISCHARGE PLANNING NOTE: CM RECEIVED ORDER FOR "SHELTER BASICALLY". CM MET WITH PT IN ROOM TO DISCUSS DISCHARGE PLANNING AND NEEDS. PT REPORTS LIVING AT HOME DEPENDENTLY WITH HIS MOTHER AND STEP FATHER. PT REPORTS INDEPENDENCE IN MEDICATION MANAGEMENT AND TOILETING. PT STATES HE WAS UNABLE TO FEED HIMSELF; CM ASKED FOR CLAIFICATION, PT STATES THAT HIS PARENTS HAD LOCKED HIM IN HIS ROOM AND WOULD NOT GIVE HIM ANY FOOD OR WATER. PT STATES HE IS NOT ABLE TO COOK FOR HIMSELF AND HIS MOTHER WOULD NOT COOK FOR HIM OR BRING HIM FOOD OR WATER AND EXPECTED HIM TO GET UP AND DO IT HIMSELF. PT STATES HE HAD NO BATH FOR 6 WEEKS BECAUSE HE IS NOT ABLE AND HIS PARENTS WILL NOT HELP HIM. PT HAS SHOWER CHAIR, ROLLING WALKER WITH SEAT AND BRAKES, NEBLUIZER AND HOME AND PORTABLE OXYGEN FROM [facility]. PT HAS NO OUTSIDE SERVICES ASSISTING IN THE HOME. PT DEPENDS ON HIS MOTHER FOR TRANSPORT TO AND FROM OUTPATIENT DIALYSIS IN [place] ON [address] SCHEDULE. CM DISCUSSED AVAILABILITY OF HOME HEALTH, REHAB SERVICES AND MEDICAL EQUIPMENT. PT STATES HE CANNOT TAKE CARE OF HIMSELF AND WANTS SHELTER PLACEMENT IN [place], NO FACILITY PREFERENCE, SO HE CAN BE CLOSE TO HOME AND MAYBE BE ABLE TO VISIT HER ONCE IN A WHILE. 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 PT REPORTS HE HAD [employer] CROSS PRIVATE OPTION BUT WAS DROPPED WHEN HE BECAME MEDICARE ELIGIBLE AND HAS TO REAPPLY FOR MEDICAID. PT REPORTS HAVING BIPOLAR AND MAJOR DEPRESSIVE DISORDER. CM EXPLAINED THAT CM WILL NEED TO COMPLETE BJORN SCREENING WITH PT'S ASSISTANCE. CM ALSO EXPLAINED THAT CM WILL BE CALLING ADULT PROTECTIVE SERVICES WITH PT'S ALLEGATION OF NEGLECT BY HIS PARENTS. CM EXPLAINED THAT PT'S MEDICATIONS MAY BE TOO EXPENSIVE TO ENTER PRISON FACILITY; PT STATES IF THAT IS A PROBLEM HE COULD JUST NOT TAKE THE EXPENSIVE HIV MEDICATIONS. CM EXPLAINED PLACEMENT PROCESS AND BJORN SCREENING PROCESS. CM PROVIDED CHOICE LISTING FOR NURSING HOMES, PT SIGNED CHOICE FOR ANY IN [place]. CM CALLED ADULT PROTECTIVE SERVICES, , PROVIDED REFERRAL FOR ALLEGATIONS OF NEGLECT. . CM TO COMPLETE BJORN SCREENING AND SEND REFERRALS TO ALL SHELTER[facility]S IN [place] FOR SKILLED AND HALFWAY CARE PLACEMENT CONSIDERATION SOON POSSIBLE. Kiel Goff, CASE MANAGEMENT DCPIA - Discharge Planning Initial Assessment Updated by [id number]: Kiel Goff on 03/07/19 4:26 pm * Is the patient Alert and Oriented? Yes * How many steps to enter\\exit or inside your home? * PCP DALLAS GUTHRIE, [facility] IN [place] * [facility] - HIV MEDICATIONS * Preadmission Environment Home with Family * ADLs Partial Dependent * Partial ADLs (Assistance needed) Bathing * Equipment Nebulizer Oxygen Rolling Walker Shower Chair * Other Equipment HOME AND PORTABLE OXYGEN [facility] - MEDICAL EQUIPMENT PROVIDER * List name and contact numbers for known caregivers / representatives who currently or will assist patient after discharge: MARISOL LEWIS, MOTHER, * Verbal permission to speak to the caregivers and representatives has been obtained from the patient. No * Community resources currently utilized Other * Please name any agencies selected above. OUTPATIENT DIALYSIS, [place], [place], 1100, FAMILY TRANSPORTS * Additional services required to return to the preadmission environment? Yes * Can the patient safely return to the preadmission environment? No * Has this patient been hospitalized within the prior 30 days at any hospital? No Coverage Notice Reviewer: [id number] Sam Goff Notice Issued Date-Time: 03/07/2019 16:10 Notice Type: Patient Choice Letter Notice Delivered To: Patient Relationship to Patient: Director Of Labor Relations Name: Delivery Method: HAND - Hand Delivered Gunjan Days: Prior Verbal Notification: Recipient Understood Notice: Yes Recipient Signature: Yes Med Rec Note Co-signed by Attending: Coverage Notice Comment: ANY NURSING FACILITY IN [place] Reviewer: [id number] Sam Goff Notice Issued Date-Time: 03/08/2019 9:25 Notice Type: Patient Choice Letter Notice Delivered To: Patient Relationship to Patient: Director Of Labor Relations Name: Delivery Method: HAND - Hand Delivered Gunjan Days: Prior Verbal Notification: Recipient Understood Notice: Yes Recipient Signature: Yes Med Rec Note Co-signed by Attending: Coverage Notice Comment: [facility] Last DP export: 03/08/19 3:17 pm Patient Name: HALLIE COE Page [id number] at 1708 All edits/amendments must be made on the electronic document DICTATION DATE: 03/08/191706 TENNIS CENTRE MANAGER: EDU 03/08/191706 RPT#: [id number] DC DATE: STATUS: ADM IN [facility] [address] [place] [address] END OF REPORT
[2019-03-08 18:11] LABS: APPEARANCE CLEAR (CLEAR); BILIRUBIN NEGATIVE (NEGATIVE); COLOR YELLOW (YELLOW); GLUCOSE NEGATIVE (NEGATIVE); KETONE NEGATIVE (NEGATIVE); NITRITE NEGATIVE (NEGATIVE); PROTEIN TRACE mg/dL (NEGATIVE); UROBILINOGEN NORMAL (NORMAL)
--- NOTE | 2019-03-08 18:38 | NUR ---
PATIENT RECIEVED PAIN AND NAUSEA MEDS. IV INTACT. NO COMPLAINTS. VS STABLE. CALL LIGHT WITHIN REACH.
--- NOTE | 2019-03-08 19:55 | NUR ---
RESUMING PT CARE. PT IS LAYING IN BED RESTING COMFORTABLY WITH EYES CLOSED. NO S/S OF DISTRESS NOTED. BED IN LOW POSITION WITH CALL LIGHT IN REACH. SIDE RAILS UP X2. WILL CONTINUE TO MONITOR PT AND FOLLOW PLAN OF CARE.
[2019-03-09] VITALS (8 sets, daily range): BP systolic 111–141; BP diastolic 72–82
--- NOTE | 2019-03-09 03:01 | NUR ---
I have reviewed this patient and I concur with the Shift Assessment completed by the Licensed Practical Nurse today this shift.
[2019-03-09 04:59] LABS: ALBUMIN 2.3 g/dL (3.4-5.0); ANION GAP 17.3 mmol/L (8-16); BILIRUBIN - TOTAL 0.41 mg/dL (0.2-1.3); CALCIUM 8.8 mg/dL (8.5-10.1); CARBON DIOXIDE 22.3 mmol/L (21.0-32.0); CREATININE - SERUM 4.2 mg/dL (0.6-1.3); PHOSPHOROUS 3.2 mg/dL (2.5-4.9); POTASSIUM - SERUM 3.6 mmol/L (3.5-5.1); PROTEIN - SERUM 6.2 g/dL (6.4-8.2); VANCOMYCIN - RANDOM 15.2 ug/mL (10.0-20.0)
[2019-03-09 05:07] LABS: HEMATOCRIT 22.9 % (42.0-54.0); HEMOGLOBIN 7.6 g/dL (13.5-17.5); MCH 28.1 pg (26.0-34.0); MCHC 33.2 g/dL (31.0-37.0); MCV 84.8 fL (80.0-100.0); MEAN PLATELET VOLUME 8.8 fL (7.4-10.4); PLATELET COUNT 300 10x3/uL (130-400); WBC 21.9 10x3/uL (4.8-10.8)
[2019-03-09 05:29] LABS: EOSINOPHILS 2 % (0-7); LYMPHOCYTES 11 % (15-50); MONOCYTES 5 % (2-11); NEUTROPHILS 79 % (40-80); PLATELET ESTIMATE NORMAL
--- NOTE | 2019-03-09 11:33 | MORECARE ---
CASE MANAGEMENT DISCHARGE SUMMARY PATIENT: HALLIE COE UNIT: [id number] ADM DATE: 03/06/19 AGE: 58 : 62 SEX: M ROOM/BED: D.2140 AUTHOR: ALDAIR,DOC PHYSICIAN: REFERRING PHYSICIAN: MATEO HOLLIS MD DATE OF SERVICE: 03/09/19 Discharge Plan Patient Name: HALLIE COE Facility: [facility]:[place] : 1960 Planned Disposition: Home with Home Health Anticipated Discharge Date: Discharge Date: Expected LOS: Initial Reviewer: [id number] Initial Review Date: 03/07/2019 Generated: 03/09/19 12:33 pm Comments DCP- Discharge Planning Updated by [id number]: Kiel Goff on 03/08/19 3:[address] Patient Name: HALLIE COE Encounter No: [id number] : 1960 Primary Insurance: MEDICARE A & B Anticipated DC Date: Planned Disposition: Usp Facility External Planned Provider: [facility] IN [place], MEDICARE REHAB BED DISCHARGE PLANNING NOTE: CM MET WITH PT IN ROOM TO COMPLETE BJORN SCREENING FORM. BJORN COMPLETED, PT SIGNED. PT REPORTS HE IS NOT SURE NOW IF HE WANTS TO GO TO PRISON AT DISCHARGE AND STATES HE MAY JUST GO BACK HOME WITH HOME HEALTH. CM ASKED ABOUT THE NEGLECTFUL CARE PT REPORTED YESTERDAY, BRING LOCKED IN ROOM WITH NO FOOD OR WATER. PT STATES THAT HE IS SAFE AT HOME WITH HIS PARENTS AND JUST NEEDS TO FIND A WAY TO GET ASSISTANCE AT HOME TO "TAKE THE PRESSURE OFF OF THEM". PT HAS TALKED TO MEDICAID OFFICE VIA PHONE TODAY AND THEY ARE SENDING HIM INFORMATION REGARDING HIS "QMB" MEDICAID. PT STATES IF HE GOES HOME WITH HOME HEALTH, HE WANTS [facility] FOR PHYSICAL THERAPY AND ASSOCIATE DENTIST TO ASSIST WITH BATHING. CHOICE SIGNED. CM PROVIDED PT WITH HOME HEALTH LISTING AND EXPLAINED HOW TO ACCESS MEDICARE REVIEW INFORMATION FOR PROVIDERS. PT WOULD LIKE CM TO CONTINUE WITH LOOKING FOR PRISON, BUT FOR REHAB SERVICES. CM [facility], [facility] AND [facility] IN [place]. ADULT PROTECTIVE SERVICES REFERRAL MADE 03-07-19 FOR ALLEGATIONS OF NEGLECT. . CM WAITING PHYSICIAN SIGNATURES ON BJORN SCREENING AND WILL FAX TO [facility] ONCE PHYSICIAN SIGNATURE HAS BEEN OBTAINED. Kiel Goff, CASE MANAGEMENT Appended by Kiel Goff on 03/08/2019 16:06 CDT: CM RECEIVED CALL FROM [facility], WHO INFORMED CM THAT THEY CANNOT MEET PT'S NEEDS. MARTY OF [facility] AND [facility] MET WITH PT IN ROOM FOR ASSESSMENT THIS AFTERNOON. CM NOTIFIED MAYKEL STROUD THAT SIGNATURE ON BJORN ASSESSMENT IS NEEDED. CM WAITING ADMISSION DETERMINATIONS FROM [facility], [facility] N[facility] AND REHAB AND [facility] IN [place]. ADULT PROTECTIVE SERVICES REFERRAL MADE 03-07-19 FOR ALLEGATIONS OF NEGLECT. . CM WAITING PHYSICIAN SIGNATURES ON BJORN SCREENING AND WILL FAX TO [facility] ONCE PHYSICIAN SIGNATURE HAS BEEN OBTAINED. Kiel Goff CASE MANAGEMENT Appended by Kiel Goff on 03/08/2019 16:59 CDT: CM OBTAINED PHYSICIAN SIGNATURES ON BJORN SCREENING AND FAXED TO [employer]. CM WAITING BJORN SCREENING DETERMINATION WELL ADMISSION DETERMINATIONS FROM [facility], [facility] N[facility] AND REHAB AND [facility] IN [place]. ADULT PROTECTIVE SERVICES REFERRAL MADE 03-07-19 FOR ALLEGATIONS OF NEGLECT. . Kiel Goff, CASE MANAGEMENT DCP- Discharge Planning Updated by [id number]: Kiel Goff on 03/07/19 3:[address] Patient Name: HALLIE COE Encounter No: [id number] : 1960 Primary Insurance: MEDICARE A & B Anticipated DC Date: Planned Disposition: Usp Facility External Planned Provider: FIRST ACCEPTING FACILITY IN [place], MEDICARE REHAB BED DISCHARGE PLANNING NOTE: CM RECEIVED ORDER FOR "PRISON BASICALLY". CM MET WITH PT IN ROOM TO DISCUSS DISCHARGE PLANNING AND NEEDS. PT REPORTS LIVING AT HOME DEPENDENTLY WITH HIS MOTHER AND STEP FATHER. PT REPORTS INDEPENDENCE IN MEDICATION MANAGEMENT AND TOILETING. PT STATES HE WAS UNABLE TO FEED HIMSELF; CM ASKED FOR CLAIFICATION, PT STATES THAT HIS PARENTS HAD LOCKED HIM IN HIS ROOM AND WOULD NOT GIVE HIM ANY FOOD OR WATER. PT STATES HE IS NOT ABLE TO COOK FOR HIMSELF AND HIS MOTHER WOULD NOT COOK FOR HIM OR BRING HIM FOOD OR WATER AND EXPECTED HIM TO GET UP AND DO IT HIMSELF. PT STATES HE HAD NO BATH FOR 6 WEEKS BECAUSE HE IS NOT ABLE AND HIS PARENTS WILL NOT HELP HIM. PT HAS SHOWER CHAIR, ROLLING WALKER WITH SEAT AND BRAKES, NEBLUIZER AND HOME AND PORTABLE OXYGEN FROM [facility] OF [facility]. PT HAS NO OUTSIDE SERVICES ASSISTING IN THE HOME. PT DEPENDS ON HIS MOTHER FOR TRANSPORT TO AND FROM OUTPATIENT DIALYSIS IN [place] ON [address] SCHEDULE. CM DISCUSSED AVAILABILITY OF HOME HEALTH, REHAB SERVICES AND MEDICAL EQUIPMENT. PT STATES HE CANNOT TAKE CARE OF HIMSELF AND WANTS PRISON PLACEMENT IN [place], NO FACILITY PREFERENCE, SO HE CAN BE CLOSE TO HOME AND MAYBE BE ABLE TO VISIT HER ONCE IN A WHILE. 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 PT REPORTS HE HAD [employer] CROSS PRIVATE OPTION BUT WAS DROPPED WHEN HE BECAME MEDICARE ELIGIBLE AND HAS TO REAPPLY FOR MEDICAID. PT REPORTS HAVING BIPOLAR AND MAJOR DEPRESSIVE DISORDER. CM EXPLAINED THAT CM WILL NEED TO COMPLETE BJORN SCREENING WITH PT'S ASSISTANCE. CM ALSO EXPLAINED THAT CM WILL BE CALLING ADULT PROTECTIVE SERVICES WITH PT'S ALLEGATION OF NEGLECT BY HIS PARENTS. CM EXPLAINED THAT PT'S MEDICATIONS MAY BE TOO EXPENSIVE TO ENTER CORRECTION FACILITY; PT STATES IF THAT IS A PROBLEM HE COULD JUST NOT TAKE THE EXPENSIVE HIV MEDICATIONS. CM EXPLAINED PLACEMENT PROCESS AND BJORN SCREENING PROCESS. CM PROVIDED CHOICE LISTING FOR NURSING HOMES, PT SIGNED CHOICE FOR ANY IN [place]. CM CALLED ADULT PROTECTIVE SERVICES, , PROVIDED REFERRAL FOR ALLEGATIONS OF NEGLECT. . CM TO COMPLETE BJORN SCREENING AND SEND REFERRALS TO ALL PRISON'S IN [place] FOR SKILLED AND HEAD CAGER CARE PLACEMENT CONSIDERATION SOON POSSIBLE. Kiel Goff, CASE MANAGEMENT DCPIA - Discharge Planning Initial Assessment Updated by [id number]: Kiel Goff on 03/07/19 4:26 pm * Is the patient Alert and Oriented? Yes * How many steps to enter\\exit or inside your home? * PCP D[place]AS GUTHRIE, [facility] IN [place] * [facility] - HIV MEDICATIONS * Preadmission Environment Home with Family * ADLs Partial Dependent * Partial ADLs (Assistance needed) Bathing * Equipment Nebulizer Oxygen Rolling Walker Shower Chair * Other Equipment HOME AND PORTABLE OXYGEN [employer] - MEDICAL EQUIPMENT PROVIDER * List name and contact numbers for known caregivers / representatives who currently or will assist patient after discharge: MARISOL LEWIS, MOTHER, * Verbal permission to speak to the caregivers and representatives has been obtained from the patient. No * Community resources currently utilized Other * Please name any agencies selected above. OUTPATIENT DIALYSIS, [place], [place], 1100, FAMILY TRANSPORTS * Additional services required to return to the preadmission environment? Yes * Can the patient safely return to the preadmission environment? No * Has this patient been hospitalized within the prior 30 days at any hospital? No Coverage Notice Reviewer: [id number] Goff Notice Issued Date-Time: 03/07/2019 16:10 Notice Type: Patient Choice Letter Notice Delivered To: Patient Relationship to Patient: Floor Finisher Helper Name: Delivery Method: HAND - Hand Delivered Gunjan Days: Prior Verbal Notification: Recipient Understood Notice: Yes Recipient Signature: Yes Med Rec Note Co-signed by Attending: Coverage Notice Comment: ANY NURSING FACILITY IN [place] Reviewer: [id number] Goff Notice Issued Date-Time: 03/08/2019 9:25 Notice Type: Patient Choice Letter Notice Delivered To: Patient Relationship to Patient: Floor Finisher Helper Name: Delivery Method: HAND - Hand Delivered Gunjan Days: Prior Verbal Notification: Recipient Understood Notice: Yes Recipient Signature: Yes Med Rec Note Co-signed by Attending: Coverage Notice Comment: [facility] Last DP export: 03/08/19 4:08 pm Patient Name: HALLIE COE Page [id number] at 1133 All edits/amendments must be made on the electronic document DICTATION DATE: 03/09/19 1132 EMERGENCY ROOM PHYSICIAN: EDU 03/09/19 1132 RPT#: [id number] DC DATE: STATUS: ADM IN [facility] [address] [place] [address] END OF REPORT
--- NOTE | 2019-03-09 14:45 | NUR ---
Nutrition follow-up: Diet: Renal Pt with good po; however, pt has been NPO for several meals during this admit Labs reviewed Wt: 121# Pt also c/o some nausea RDN following.
[2019-03-09 15:24] LABS: HEMATOCRIT 23.6 % (42.0-54.0); HEMOGLOBIN 7.6 g/dL (13.5-17.5)
--- NOTE | 2019-03-09 15:45 | MORECARE ---
CASE MANAGEMENT DISCHARGE SUMMARY PATIENT: HALLIE COE UNIT: [id number] ADM DATE: 03/06/19 AGE: 58 : 62 SEX: M ROOM/BED: D.2140 AUTHOR: ALDAIR,DOC PHYSICIAN: REFERRING PHYSICIAN: MATEO HOLLIS MD DATE OF SERVICE: 03/09/19 Discharge Plan Patient Name: [facility]ALLIE CO[facility] [facility] 1960 Planned Disposition: Home with Home Health Anticipated Discharge Date: 03/10/19 Discharge Date: Expected LOS: 4 Initial Reviewer: [id number] Initial Review Date: 03/07/2019 Generated: 03/09/19 4:45 pm Comments DCP- Discharge Planning Updated by [id number]: Kiel Goff on 03/08/19 3:[address] Patient Name: HALLIE COE Encounter No: [id number] : 1960 Primary Insurance: MEDICARE A & B Anticipated DC Date: Planned Disposition: Long Term Facility External Planned Provider: [facility] IN [place], MEDICARE REHAB BED DISCHARGE PLANNING NOTE: CM MET WITH PT IN ROOM TO COMPLETE BJORN SCREENING FORM. BJORN COMPLETED, PT SIGNED. PT REPORTS HE IS NOT SURE NOW IF HE WANTS TO GO TO [facility] AT DISCHARGE AND STATES HE MAY JUST GO BACK HOME WITH HOME HEALTH. CM ASKED ABOUT THE NEGLECTFUL CARE PT REPORTED YESTERDAY, BRING LOCKED IN ROOM WITH NO FOOD OR WATER. PT STATES THAT HE IS SAFE AT HOME WITH HIS PARENTS AND JUST NEEDS TO FIND A WAY TO GET ASSISTANCE AT HOME TO "TAKE THE PRESSURE OFF OF THEM". PT HAS TALKED TO MEDICAID OFFICE VIA PHONE TODAY AND THEY ARE SENDING HIM INFORMATION REGARDING HIS "QMB" MEDICAID. PT STATES IF HE GOES HOME WITH HOME HEALTH, HE WANTS [facility] FOR PHYSICAL THERAPY AND PETROLEUM REFINING EQUIPMENT OPERATOR TO ASSIST WITH BATHING. CHOICE SIGNED. CM PROVIDED PT WITH HOME HEALTH LISTING AND EXPLAINED HOW TO ACCESS MEDICARE REVIEW INFORMATION FOR PROVIDERS. PT WOULD LIKE CM TO CONTINUE WITH LOOKING FOR [facility], BUT FOR REHAB SERVICES. CM FAXED REFERRALS TO [facility], [facility] AND [facility] IN [place]. ADULT PROTECTIVE SERVICES REFERRAL MADE 03-07-19 FOR ALLEGATIONS OF NEGLECT. . CM WAITING PHYSICIAN SIGNATURES ON BJORN SCREENING AND WILL FAX TO [facility] ONCE PHYSICIAN SIGNATURE HAS BEEN OBTAINED. Kiel Goff, CASE MANAGEMENT Appended by Kiel Goff on 03/08/2019 16:06 CDT: CM RECEIVED CALL FROM [facility], WHO INFORMED CM THAT THEY CANNOT MEET PT'S NEEDS. MARTY OF [facility] AND [facility] MET WITH PT IN ROOM FOR ASSESSMENT THIS AFTERNOON. CM NOTIFIED MAYKEL STROUD THAT SIGNATURE ON BJORN ASSESSMENT IS NEEDED. CM WAITING ADMISSION DETERMINATIONS FROM [facility], [facility] AND [facility] IN [place]. ADULT PROTECTIVE SERVICES REFERRAL MADE 03-07-19 FOR ALLEGATIONS OF NEGLECT. . CM WAITING PHYSICIAN SIGNATURES ON BJORN SCREENING AND WILL FAX TO [facility] ONCE PHYSICIAN SIGNATURE HAS BEEN OBTAINED. Kiel Goff CASE MANAGEMENT Appended by Kiel Goff on 03/08/2019 16:59 CDT: CM OBTAINED PHYSICIAN SIGNATURES ON BJORN SCREENING AND FAXED TO [facility]. CM WAITING BJORN SCREENING DETERMINATION WELL ADMISSION DETERMINATIONS FROM [facility], [facility] AND [facility] IN [place]. ADULT PROTECTIVE SERVICES REFERRAL MADE 03-07-19 FOR ALLEGATIONS OF NEGLECT. . Kiel Goff, CASE MANAGEMENT DCP- Discharge Planning Updated by [id number]: Kiel Goff on 03/07/19 3:[address] Patient Name: HALLIE COE Encounter No: [id number] : 1960 Primary Insurance: MEDICARE A & B Anticipated DC Date: Planned Disposition: Long Term Facility External Planned Provider: FIRST ACCEPTING FACILITY IN [place], MEDICARE REHAB BED DISCHARGE PLANNING NOTE: CM RECEIVED ORDER FOR "[facility] BASICALLY". CM MET WITH PT IN ROOM TO DISCUSS DISCHARGE PLANNING AND NEEDS. PT REPORTS LIVING AT HOME DEPENDENTLY WITH HIS MOTHER AND STEP FATHER. PT REPORTS INDEPENDENCE IN MEDICATION MANAGEMENT AND TOILETING. PT STATES HE WAS UNABLE TO FEED HIMSELF; CM ASKED FOR CLAIFICATION, PT STATES THAT HIS PARENTS HAD LOCKED HIM IN HIS ROOM AND WOULD NOT GIVE HIM ANY FOOD OR WATER. PT STATES HE IS NOT ABLE TO COOK FOR HIMSELF AND HIS MOTHER WOULD NOT COOK FOR HIM OR BRING HIM FOOD OR WATER AND EXPECTED HIM TO GET UP AND DO IT HIMSELF. PT STATES HE HAD NO BATH FOR 6 WEEKS BECAUSE HE IS NOT ABLE AND HIS PARENTS WILL NOT HELP HIM. PT HAS SHOWER CHAIR, ROLLING WALKER WITH SEAT AND BRAKES, NEBLUIZER AND HOME AND PORTABLE OXYGEN FROM [facility]. PT HAS NO OUTSIDE SERVICES ASSISTING IN THE HOME. PT DEPENDS ON HIS MOTHER FOR TRANSPORT TO AND FROM OUTPATIENT DIALYSIS IN [place] ON [facility]TS 1100 SCHEDULE. CM DISCUSSED AVAILABILITY OF HOME HEALTH, REHAB SERVICES AND MEDICAL EQUIPMENT. PT STATES HE CANNOT TAKE CARE OF HIMSELF AND WANTS [facility] PLACEMENT IN [place], NO FACILITY PREFERENCE, SO HE CAN BE CLOSE TO HOME AND MAYBE BE ABLE TO VISIT HER ONCE IN A WHILE. 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 PT REPORTS HE HAD [employer] PRIVATE OPTION BUT WAS DROPPED WHEN HE BECAME MEDICARE ELIGIBLE AND HAS TO REAPPLY FOR MEDICAID. PT REPORTS HAVING BIPOLAR AND MAJOR DEPRESSIVE DISORDER. CM EXPLAINED THAT CM WILL NEED TO COMPLETE BJORN SCREENING WITH PT'S ASSISTANCE. CM ALSO EXPLAINED THAT CM WILL BE CALLING ADULT PROTECTIVE SERVICES WITH PT'S ALLEGATION OF NEGLECT BY HIS PARENTS. CM EXPLAINED THAT PT'S MEDICATIONS MAY BE TOO EXPENSIVE TO ENTER PENITENTIARY FACILITY; PT STATES IF THAT IS A PROBLEM HE COULD JUST NOT TAKE THE EXPENSIVE HIV MEDICATIONS. CM EXPLAINED PLACEMENT PROCESS AND BJORN SCREENING PROCESS. CM PROVIDED CHOICE LISTING FOR NURSING HOMES, PT SIGNED CHOICE FOR ANY IN [place]. CM CALLED ADULT PROTECTIVE SERVICES, , PROVIDED REFERRAL FOR ALLEGATIONS OF NEGLECT. . CM TO COMPLETE BJORN SCREENING AND SEND REFERRALS TO ALL [facility]S IN [place] FOR SKILLED AND SECTIONAL BELT MOLD ASSEMBLER CARE PLACEMENT CONSIDERATION SOON POSSIBLE. Kiel Goff, CASE MANAGEMENT DCPIA - Discharge Planning Initial Assessment Updated by [id number]: Kiel Goff on 03/07/19 4:26 pm * Is the patient Alert and Oriented? Yes * How many steps to enter\\exit or inside your home? * PCP [place] GUTHRIE, [facility] IN [place] * Pharmacy [facility] IN [facility] - HIV MEDICATIONS * Preadmission Environment Home with Family * ADLs Partial Dependent * Partial ADLs (Assistance needed) Bathing * Equipment Nebulizer Oxygen Rolling Walker Shower Chair * Other Equipment HOME AND PORTABLE OXYGEN [facility] - MEDICAL EQUIPMENT PROVIDER * List name and contact numbers for known caregivers / representatives who currently or will assist patient after discharge: MARISOL LEWIS, MOTHER, * Verbal permission to speak to the caregivers and representatives has been obtained from the patient. No * Community resources currently utilized Other * Please name any agencies selected above. OUTPATIENT DIALYSIS, [facility], [facility], 1100, [facility] * Additional services required to return to the preadmission environment? Yes * Can the patient safely return to the preadmission environment? No * Has this patient been hospitalized within the prior 30 days at any hospital? No Coverage Notice Reviewer: [id number] Sam Goff Notice Issued Date-Time: 03/07/2019 16:10 Notice Type: Patient Choice Letter Notice Delivered To: Patient Relationship to Patient: Rn Quality Name: Delivery Method: HAND - Hand Delivered Gunjan Days: Prior Verbal Notification: Recipient Understood Notice: Yes Recipient Signature: Yes Med Rec Note Co-signed by Attending: Coverage Notice Comment: ANY NURSING FACILITY IN [place] Reviewer: [id number] Goff Notice Issued Date-Time: 03/08/2019 9:25 Notice Type: Patient Choice Letter Notice Delivered To: Patient Relationship to Patient: Rn Quality Name: Delivery Method: HAND - Hand Delivered Gunjan Days: Prior Verbal Notification: Recipient Understood Notice: Yes Recipient Signature: Yes Med Rec Note Co-signed by Attending: Coverage Notice Comment: [facility] Last DP export: 03/09/19 10:33 am Patient Name: HALLIE COE Page [id number] at 1545 All edits/amendments must be made on the electronic document DICTATION DATE: 03/09/19 1545 HAND SURGEON: EDU 03/09/19 1545 RPT#: [id number] DC DATE: STATUS: ADM IN [facility] [address] [place] [address] END OF REPORT
--- NOTE | 2019-03-09 15:58 | MORECARE ---
CASE MANAGEMENT DISCHARGE SUMMARY PATIENT: HALLIE COE UNIT: [id number] ADM DATE: 03/06/19 AGE: 58 : 62 SEX: M ROOM/BED: D.2140 AUTHOR: ALDAIR,DOC PHYSICIAN: REFERRING PHYSICIAN: MATEO HOLLIS MD DATE OF SERVICE: 03/09/19 Discharge Plan Patient Name: HALLIE COE Facility: [facility] : 1960 Planned Disposition: Home with Home Health Anticipated Discharge Date: 03/10/19 Discharge Date: Expected LOS: 4 Initial Reviewer: [id number] Initial Review Date: 03/07/2019 Generated: 03/09/19 4:58 pm Comments DCP- Discharge Planning Updated by [id number]: Kiel Goff on 03/09/19 2:[address] Patient Name: HALLIE COE Encounter No: [id number] : 1960 Primary Insurance: MEDICARE A & B Anticipated DC Date: 03-10-2019 Planned Disposition: Home with Home Health External Planned Provider: [facility] DCP follow-up note: CM RECEIVED FAX FROM [facility], PT GARBER SNOT MEET CORRECTION CRITERIA AND HAS BEEN DENIED [facility] PLACEMENT BY OFFICE OF [facility]. CM NOTIFIED PT IN ROOM. PT REPORTS SPEAKING TO HIS PRIMARY DOCTORS OFFICE TODAY AND THAT THEY RECOMMENDED TO PT THAT HE GO HOME WITH HOME HEALTH. PT IS AGREEABLE TO PLAN AND HAS SIGNED CONSENT FOR [facility] WITH CM PREVIOUSLY PT ALSO REPORTS HAVING SPOKEN TO MEDICAID OFFICE TODAY, THEY ARE MAILING HIM PAPERS TO HIS HOME TO COMPLETE AND PT HAS BEEN INSTRUCTED TO COME TO [facility] OFFICE IN [place] IF HE NEEDS ASSISTANCE FILLING THEM OUT. CM SPOKE TO ADULT PROTECTIVE SERVICES WORKER MAGGIE LUIS WHO VERIFIED CM'S REPORT OF NEGLECT HAS BEEN RECEIVED AND THEY WILL BE FOLLOWING UP WITH PT AT HOME IF NECESSARY, ONCE THE REPORT IS ASSIGNED TO A WORKER. PT IS IN AGREEMENT WITH GOING HOME WITH HOME HEALTH. CM TO ARRANGE HOME HEALTH WITH [facility] WITH PHYSICIAN AGREEMENT AND ORDERS. PT'S PRIMARY CARE PHYSICIAN IS [place] GUTHRIE, [facility] IN [place]. SUNITHA Hernández DCP- Discharge Planning Updated by [id number]: Kiel Goff on 03/08/19 3:[address] Patient Name: HALLIE COE Encounter No: [id number] : 1960 Primary Insurance: MEDICARE A & B Anticipated DC Date: Planned Disposition: Penitentiary Facility External Planned Provider: FIRST ACCEPTING FACILITY IN [place], MEDICARE REHAB BED DISCHARGE PLANNING NOTE: CM MET WITH PT IN ROOM TO COMPLETE BOJRN SCREENING FORM. BJORN COMPLETED, PT SIGNED. PT REPORTS HE IS NOT SURE NOW IF HE WANTS TO GO TO [facility] AT DISCHARGE AND STATES HE MAY JUST GO BACK HOME WITH HOME HEALTH. CM ASKED ABOUT THE NEGLECTFUL CARE PT REPORTED YESTERDAY, BRING LOCKED IN ROOM WITH NO FOOD OR WATER. PT STATES THAT HE IS SAFE AT HOME WITH HIS PARENTS AND JUST NEEDS TO FIND A WAY TO GET ASSISTANCE AT HOME TO "TAKE THE PRESSURE OFF OF THEM". PT HAS TALKED TO MEDICAID OFFICE VIA PHONE TODAY AND THEY ARE SENDING HIM INFORMATION REGARDING HIS "QMB" MEDICAID. PT STATES IF HE GOES HOME WITH HOME HEALTH, HE WANTS [facility] FOR PHYSICAL THERAPY AND FIELD SERVICES ANALYST TO ASSIST WITH BATHING. CHOICE SIGNED. CM PROVIDED PT WITH HOME HEALTH LISTING AND EXPLAINED HOW TO ACCESS MEDICARE REVIEW INFORMATION FOR PROVIDERS. PT WOULD LIKE CM TO CONTINUE WITH LOOKING FOR [facility], BUT FOR REHAB SERVICES. CM FAXED REFERRALS TO [facility], [facility] AND [facility] IN [place]. ADULT PROTECTIVE SERVICES REFERRAL MADE 03-07-19 FOR ALLEGATIONS OF NEGLECT. . CM WAITING PHYSICIAN SIGNATURES ON BJORN SCREENING AND WILL FAX TO [facility] ONCE PHYSICIAN SIGNATURE HAS BEEN OBTAINED. Kiel Goff CASE MANAGEMENT Appended by Kiel Goff on 03/08/2019 16:06 CDT: CM RECEIVED CALL FROM [facility], WHO INFORMED CM THAT THEY CANNOT MEET PT'S NEEDS. MARTY OF [facility] AND [facility] MET WITH PT IN ROOM FOR ASSESSMENT THIS AFTERNOON. CM NOTIFIED MAYKEL STROUD THAT SIGNATURE ON BJORN ASSESSMENT IS NEEDED. CM WAITING ADMISSION DETERMINATIONS FROM [facility], [facility] AND [facility] IN [place]. ADULT PROTECTIVE SERVICES REFERRAL MADE 03-07-19 FOR ALLEGATIONS OF NEGLECT. . CM WAITING PHYSICIAN SIGNATURES ON BJORN SCREENING AND WILL FAX TO [facility] ONCE PHYSICIAN SIGNATURE HAS BEEN OBTAINED. Kiel Piney, CASE MANAGEMENT Appended by Kiel Goff on 03/08/2019 16:59 CDT: CM OBTAINED PHYSICIAN SIGNATURES ON BJORN SCREENING AND FAXED TO [facility]. CM WAITING BJORN SCREENING DETERMINATION WELL ADMISSION DETERMINATIONS FROM [facility], [facility] AND [facility] IN [place]. ADULT PROTECTIVE SERVICES REFERRAL MADE 03-07-19 FOR ALLEGATIONS OF NEGLECT. . Kiel Goff, CASE MANAGEMENT DCP- Discharge Planning Updated by [id number]: Kiel Goff on 03/07/19 3:[address] Patient Name: HALLIE COE Encounter No: [id number] : 1960 Primary Insurance: MEDICARE A & B Anticipated DC Date: Planned Disposition: Penitentiary Facility External Planned Provider: FIRST ACCEPTING FACILITY IN [place], MEDICARE REHAB BED DISCHARGE PLANNING NOTE: CM RECEIVED ORDER FOR "[facility] BASICALLY". CM MET WITH PT IN ROOM TO DISCUSS DISCHARGE PLANNING AND NEEDS. PT REPORTS LIVING AT HOME DEPENDENTLY WITH HIS MOTHER AND STEP FATHER. PT REPORTS INDEPENDENCE IN MEDICATION MANAGEMENT AND TOILETING. PT STATES HE WAS UNABLE TO FEED HIMSELF; CM ASKED FOR CLAIFICATION, PT STATES THAT HIS PARENTS HAD LOCKED HIM IN HIS ROOM AND WOULD NOT GIVE HIM ANY FOOD OR WATER. PT STATES HE IS NOT ABLE TO COOK FOR HIMSELF AND HIS MOTHER WOULD NOT COOK FOR HIM OR BRING HIM FOOD OR WATER AND EXPECTED HIM TO GET UP AND DO IT HIMSELF. PT STATES HE HAD NO BATH FOR 6 WEEKS BECAUSE HE IS NOT ABLE AND HIS PARENTS WILL NOT HELP HIM. PT HAS SHOWER CHAIR, ROLLING WALKER WITH SEAT AND BRAKES, NEBLUIZER AND HOME AND PORTABLE OXYGEN FROM [facility] OUT OF [facility]. PT HAS NO OUTSIDE SERVICES ASSISTING IN THE HOME. PT DEPENDS ON HIS MOTHER FOR TRANSPORT TO AND FROM OUTPATIENT DIALYSIS IN [place] ON TTS [address] SCHEDULE. CM DISCUSSED AVAILABILITY OF HOME HEALTH, REHAB SERVICES AND MEDICAL EQUIPMENT. PT STATES HE CANNOT TAKE CARE OF HIMSELF AND WANTS [facility] PLAC[facility] IN [place], NO FACILITY PREFERENCE, SO HE CAN BE CLOSE TO HOME AND MAYBE BE ABLE TO VISIT HER ONCE IN A WHILE. 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 PT DOES NOT YET RECEIVE DISABILITY AND HAS AN PAVER OPERATOR FIGHTING FOR IT. PT REPORTS HE HAD [employer] PRIVATE OPTION BUT WAS DROPPED WHEN HE BECAME MEDICARE ELIGIBLE AND HAS TO REAPPLY FOR MEDICAID. PT REPORTS HAVING BIPOLAR AND MAJOR DEPRESSIVE DISORDER. CM EXPLAINED THAT CM WILL NEED TO COMPLETE BJORN SCREENING WITH PT'S ASSISTANCE. CM ALSO EXPLAINED THAT CM WILL BE CALLING ADULT PROTECTIVE SERVICES WITH PT'S ALLEGATION OF NEGLECT BY HIS PARENTS. CM EXPLAINED THAT PT'S MEDICATIONS MAY BE TOO EXPENSIVE TO ENTER [facility] FACILITY; PT STATES IF THAT IS A PROBLEM HE COULD JUST NOT TAKE THE EXPENSIVE HIV MEDICATIONS. CM EXPLAINED PLACEMENT PROCESS AND BJORN SCREENING PROCESS. CM PROVIDED CHOICE LISTING FOR NURSING HOMES, PT SIGNED CHOICE FOR ANY IN [place]. CM CALLED ADULT PROTECTIVE SERVICES, , PROVIDED REFERRAL FOR ALLEGATIONS OF NEGLECT. . CM TO COMPLETE BJORN SCREENING AND SEND REFERRALS TO ALL [facility]S IN [place] FOR SKILLED AND [facility] MATE CARE PLACEMENT CONSIDERATION SOON POSSIBLE. Kiel Goff, CASE MANAGEMENT DCPIA - Discharge Planning Initial Assessment Updated by [id number]: Keil Goff on 03/07/19 4:26 pm * Is the patient Alert and Oriented? Yes * How many steps to enter\\exit or inside your home? * PCP [place] GUTHRIE, [facility] IN [place] * Pharmacy [facility] - HIV MEDICATIONS * Preadmission Environment Home with Family * ADLs Partial Dependent * Partial ADLs (Assistance needed) Bathing * Equipment Nebulizer Oxygen Rolling Walker Shower Chair * Other Equipment HOME AND PORTABLE OXYGEN [facility] - MEDICAL EQUIPMENT PROVIDER * List name and contact numbers for known caregivers / representatives who currently or will assist patient after discharge: MARISOL LEWIS, MOTHER, * Verbal permission to speak to the caregivers and representatives has been obtained from the patient. No * Community resources currently utilized Other * Please name any agencies selected above. OUTPATIENT DIALYSIS, [facility], [facility], 1100, FAMILY [facility]SPORTS * Additional services required to return to the preadmission environment? Yes * Can the patient safely return to the preadmission environment? No * Has this patient been hospitalized within the prior 30 days at any hospital? No Coverage Notice Reviewer: [id number] - Kiel Goff Notice Issued Date-Time: 03/07/2019 16:10 Notice Type: Patient Choice Letter Notice Delivered To: Patient Relationship to Patient: Supervisor Plasma Name: Delivery Method: HAND - Hand Delivered Gunjan Days: Prior Verbal Notification: Recipient Understood Notice: Yes Recipient Signature: Yes Med Rec Note Co-signed by Attending: Coverage Notice Comment: ANY NURSING FACILITY IN [place] Reviewer: [id number] Sam Goff Notice Issued Date-Time: 03/08/2019 9:25 Notice Type: Patient Choice Letter Notice Delivered To: Patient Relationship to Patient: Supervisor Plasma Name: Delivery Method: HAND - Hand Delivered Gunjan Days: Prior Verbal Notification: Recipient Understood Notice: Yes Recipient Signature: Yes Med Rec Note Co-signed by Attending: Coverage Notice Comment: [facility] Last DP export: 03/09/19 2:45 pm Patient Name: HALLIE COE Page [id number] at 1558 All edits/amendments must be made on the electronic document DICTATION DATE: 03/09/191556 DIRECTOR SALES AND MARKETING: EDU 03/09/191556 RPT#: [id number] DC DATE: STATUS: ADM IN [facility] [address] [place] [address] END OF REPORT
--- NOTE | 2019-03-09 16:48 | NUR ---
EDUCATED PATIENT ON THE DISCHARGE PLANS FOR THE FOLLOWING DAY. PATIENT VISIBLY UPSET AT NOT HAVING ANYONE TO TAKE CARE OF HIM. PATIENT STATED THAT HE WOULD BE COMMITING SUICIDE IF HE WENT ON HOSPICE. PATIENT ALSO STATED " I SHOULD JUST BECAUSE NO ONE WILL TAKE CARE OF ME". PATIENT STATED SEVERAL TIMES THAT HE SOULD JUST AND BE PUT OUT OF HIS MISERY BECAUSE THERE ARE PEOPLE ON THE STREETS GETTING HANDOUTS BETTER THATN HE IS LIVING. PATIENT TEARFUL AND CALLING PEOPLE TO ASSIST HIM UPON DISCHARGE.
--- NOTE | 2019-03-09 17:14 | MORECARE ---
CASE MANAGEMENT DISCHARGE SUMMARY PATIENT: HALLIE COE UNIT: [id number] ADM DATE: 03/06/19 AGE: 58 : 62 SEX: M ROOM/BED: D.2140 AUTHOR: ALDAIR,DOC PHYSICIAN: REFERRING PHYSICIAN: MATEO HOLLIS MD DATE OF SERVICE: 03/09/19 Discharge Plan Patient Name: HALLIE COE Facility: [facility]:[place] : 1960 Planned Disposition: Home with Home Health Anticipated Discharge Date: 03/10/19 Discharge Date: Expected LOS: 4 Initial Reviewer: [id number] Initial Review Date: 03/07/2019 Generated: 03/09/19 6:14 pm Comments DCP- Discharge Planning Updated by [id number]: Kiel Goff on 03/09/19 4:[address] Patient Name: HALLIE COE Encounter No: [id number] : 1960 Primary Insurance: MEDICARE A & B Anticipated DC Date: 03-10-2019 Planned Disposition: Home with Home Health External Planned Provider: [facility] DCP follow-up note: CM RECEIVED FAX FROM [facility]ena, PT GARBER SNOT MEET SNF CRITERIA AND HAS BEEN DENIED SNF PLACEMENT BY OFFICE OF [facility]. CM NOTIFIED PT IN ROOM. PT REPORTS SPEAKING TO HIS PRIMARY DOCTORS OFFICE TODAY AND THAT THEY RECOMMENDED TO PT THAT HE GO HOME WITH HOME HEALTH. PT IS AGREEABLE TO PLAN AND HAS SIGNED CONSENT FOR [facility] WITH CM PREVIOUSLY PT ALSO REPORTS HAVING SPOKEN TO MEDICAID OFFICE TODAY, THEY ARE MAILING HIM PAPERS TO HIS HOME TO COMPLETE AND PT HAS BEEN INSTRUCTED TO COME TO [facility] OFFICE IN [place] IF HE NEEDS ASSISTANCE FILLING THEM OUT. CM SPOKE TO ADULT PROTECTIVE SERVICES WORKER MAGGIE LUIS WHO VERIFIED CM'S REPORT OF NEGLECT HAS BEEN RECEIVED AND THEY WILL BE FOLLOWING UP WITH PT AT HOME IF NECESSARY, ONCE THE REPORT IS ASSIGNED TO A WORKER. PT IS IN AGREEMENT WITH GOING HOME WITH HOME HEALTH. CM TO ARRANGE HOME HEALTH WITH [facility] WITH PHYSICIAN AGREEMENT AND ORDERS. PT'S PRIMARY CARE PHYSICIAN IS DALLAS GUTHRIE, [facility] IN [place]. Kile Goff, CASE MANAGEMENT Appended by Kiel Gfof on 03/09/2019 17:14 CDT: CM SPOKE TO DR. HOLLIS WHO INFORMED CM THAT PT WILL DISCHARGE HOME TOMORROW. CM SPOKE TO PT IN ROOM AND DISCUSSED DISCHARGE HOME. PT REPORTS HE HAS NO RIDE HOME AND HIS MOTHER HAD MAJOR SURGERY AND IS NOT AVAILABLE. CM DISCUSSED FAMILY, FRIENDS, OTHER FAMILY MEMBERS FRIENDS OR OTHER SUPPORT SYSTEM PERSONS THAT MAY ASSIST. PT STATES HE HAS NO WAY TO DIALYSIS AND MIGHT WELL GO ON HOSPICE AND "KILL MYSELF." PT STATES "LOOK AT ME, I CAN'T TAKE CARE OF MYSELF, CAN'T TAKE MY MEDICATIONS AND CAN'T EVEN EAT." PT STATES "HOSPICE WILL TAKE ME OFF DIALYSIS... AT LEAST THEY WILL TAKE CARE OF ME." CM AGREED THAT IF PT AGREED TO HOSPICE AND HE STOPPED DIALYSIS, HE WOULD . CM INFORMED PT THAT CM DID CALL MEDICAID TRANSPORT IN [facility] AND THEY WILL NOT TRANSPORT HIM TO DIALYSIS, EVEN FOR [place], AND WILL ONLY TRANSPORT IF PT HAS MEDICAID. PT STATES HE COULD DRIVE HIMSELF BUT "THAT WOULD NOT BE SAFE." CM EXPLAINED THAT PT WILL NEED TO CALL THE PEOPLE IN HIS PERSONAL SUPPORT SYSTEM AND ASK FOR HELP IF HIS PARENTS ARE NOT ABLE TO DO IT. PT STATES THAT HE WILL TRY TO CALL AND FIND A RIDE HOME AND TO DIALYSIS. CM DISCUSSED COMPLETING MEDICAID APPLICATION SOON POSSIBLE DISCUSSED EARLIER TODAY. PT STATES THAT ALL HE GETS IS A RUN AROUND FROM THE MEDICAID PEOPLE AND THAT HIS PRIMARY DOCTOR HAS A ARMATURE AND ROTOR WINDER THAT HAS PROMISED TO LOOK FOR HELP FOR PT BUT HAS NOT COME THROUGH WITH ANYTHING YET. CM POINTED OUT THAT DEPARTMENT OF HUMAN SERIVCES HAS OFFERED TO ASSIST PT WITH FILLING OUT THE APPLICATION. PT DID NOT RESPOND. CM ENCOURAGED PT TO FILL OUT THE APPLICATION REQUESTED, WORK WITH HIS PRIMARY DOCTOR AND ARMATURE AND ROTOR WINDER TO WORK OUT THESE PROBLEMS. PT LOOKED AT THE CLOCK AND STATED "IT'S FIVE O'CLOCK, IT'S TOO LATE TO CALL ANYONE FOR A RIDE." CM INFORMED PT THAT HE WILL BE DISCHARGED TOMORROW AND HE WOULD BE MORE LIKELY TO FIND SOMEONE TO ASSIST IF HE CALLED NOW WITH ADVANCE NOTICE. PT DID NOT RESPOND. CM PROVIDED AND EXPLAINED IMPORTANT MESSAGE FROM MEDICARE. PT STATES HE STILL WANTS HOME HEALTH WITH [facility]. CM DISCUSSED STATEMENTS PT MADE WITH BEDSIDE NURSE WHO WAS IN THE ROOM DURING SOME OF THE CONVERSATION. BEDSIDE NURSE WILL NOTIFY COATING MANAGER OF PT'S SUICIDAL STATEMENT. PT'S NURSE CALL LIGHT CAME ON, CM REPONDED, PT TOLD CM THAT HE NURSE DID NOT COME BACK WITH HIS MEDICATIONS. CM TO ARRANGE HOME HEALTH WITH [facility] WITH PHYSICIAN AGREEMENT AND ORDERS. PT'S PRIMARY CARE PHYSICIAN IS DALLAS GUTHRIE, [facility] IN [place]. Kiel Goff, CASE MANAGEMENT DCP- Discharge Planning Updated by [id number]: Kiel Goff on 03/08/19 3:[address] Patient Name: HALLIE COE Encounter No: [id number] : 1960 Primary Insurance: MEDICARE A & B Anticipated DC Date: Planned Disposition: Intermediate Facility External Planned Provider: FIRST ACCEPTING FACILITY IN [place], MEDICARE REHAB BED DISCHARGE PLANNING NOTE: CM MET WITH PT IN ROOM TO COMPLETE BJORN SCREENING FORM. [facility] COMPLETED, PT SIGNED. PT REPORTS HE IS NOT SURE NOW IF HE WANTS TO GO TO SNF AT DISCHARGE AND STATES HE MAY JUST GO BACK HOME WITH HOME HEALTH. CM ASKED ABOUT THE NEGLECTFUL CARE PT REPORTED YESTERDAY, BRING LOCKED IN ROOM WITH NO FOOD OR WATER. PT STATES THAT HE IS SAFE AT HOME WITH HIS PARENTS AND JUST NEEDS TO FIND A WAY TO GET ASSISTANCE AT HOME TO "TAKE THE PRESSURE OFF OF THEM". PT HAS TALKED TO MEDICAID OFFICE VIA PHONE TODAY AND THEY ARE SENDING HIM INFORMATION REGARDING HIS "QMB" MEDICAID. PT STATES IF HE GOES HOME WITH HOME HEALTH, HE WANTS [facility] FOR PHYSICAL THERAPY AND CLINICAL SALES CONSULTANT TO ASSIST WITH BATHING. CHOICE SIGNED. CM PROVIDED PT WITH HOME HEALTH LISTING AND EXPLAINED HOW TO ACCESS MEDICARE REVIEW INFORMATION FOR PROVIDERS. PT WOULD LIKE CM TO CONTINUE WITH LOOKING FOR SNF, BUT FOR REHAB SERVICES. CM FAXED REFERRALS TO [facility], [facility] AND [facility] IN [place]. ADULT PROTECTIVE SERVICES REFERRAL MADE 03-07-19 FOR ALLEGATIONS OF NEGLECT. . CM WAITING PHYSICIAN SIGNATURES ON [facility] SCREENING AND WILL FAX TO [facility] ONCE PHYSICIAN SIGNATURE HAS BEEN OBTAINED. Kiel Goff, CASE MANAGEMENT Appended by Kiel Goff on 03/08/2019 16:06 CDT: CM RECEIVED CALL FROM [facility], WHO INFORMED CM THAT THEY CANNOT MEET PT'S NEEDS. MARTY OF [facility] AND [facility] MET WITH PT IN ROOM FOR ASSESSMENT THIS AFTERNOON. CM NOTIFIED MAYKEL STROUD THAT SIGNATURE ON BJORN ASSESSMENT IS NEEDED. CM WAITING ADMISSION DETERMINATIONS FROM [facility], [facility] AND [facility] IN [place]. ADULT PROTECTIVE SERVICES REFERRAL MADE 03-07-19 FOR ALLEGATIONS OF NEGLECT. . CM WAITING PHYSICIAN SIGNATURES ON BJORN SCREENING AND WILL FAX TO [facility] ONCE PHYSICIAN SIGNATURE HAS BEEN OBTAINED. Kiel Goff, CASE MANAGEMENT Appended by Kiel Goff on 03/08/2019 16:59 CDT: CM OBTAINED PHYSICIAN SIGNATURES ON BJORN SCREENING AND FAXED TO [facility]. CM WAITING BJORN SCREENING DETERMINATION WELL ADMISSION DETERMINATIONS FROM [facility], [facility] AND [facility] IN [place]. ADULT PROTECTIVE SERVICES REFERRAL MADE 03-07-19 FOR ALLEGATIONS OF NEGLECT. . Kiel Goff, CASE MANAGEMENT DCP- Discharge Planning Updated by [id number]: Kiel Goff on 03/07/19 3:[address] Patient Name: HALLIE COE Encounter No: [id number] : 1960 Primary Insurance: MEDICARE A & B Anticipated DC Date: Planned Disposition: Intermediate Facility External Planned Provider: FIRST ACCEPTING FACILITY IN [place], MEDICARE REHAB BED DISCHARGE PLANNING NOTE: CM RECEIVED ORDER FOR "SNF BASICALLY". CM MET WITH PT IN ROOM TO DISCUSS DISCHARGE PLANNING AND NEEDS. PT REPORTS LIVING AT HOME DEPENDENTLY WITH HIS MOTHER AND STEP FATHER. PT REPORTS INDEPENDENCE IN MEDICATION MANAGEMENT AND TOILETING. PT STATES HE WAS UNABLE TO FEED HIMSELF; CM ASKED FOR CLAIFICATION, PT STATES THAT HIS PARENTS HAD LOCKED HIM IN HIS ROOM AND WOULD NOT GIVE HIM ANY FOOD OR WATER. PT STATES HE IS NOT ABLE TO COOK FOR HIMSELF AND HIS MOTHER WOULD NOT COOK FOR HIM OR BRING HIM FOOD OR WATER AND EXPECTED HIM TO GET UP AND DO IT HIMSELF. PT STATES HE HAD NO BATH FOR 6 WEEKS BECAUSE HE IS NOT ABLE AND HIS PARENTS WILL NOT HELP HIM. PT HAS SHOWER CHAIR, ROLLING WALKER WITH SEAT AND BRAKES, NEBLUIZER AND HOME AND PORTABLE OXYGEN FROM [facility] OUT OF [facility]. PT HAS NO OUTSIDE SERVICES ASSISTING IN THE HOME. PT DEPENDS ON HIS MOTHER FOR TRANSPORT TO AND FROM OUTPATIENT DIALYSIS IN [place] ON [address] SCHEDULE. CM DISCUSSED AVAILABILITY OF HOME HEALTH, REHAB SERVICES AND MEDICAL EQUIPMENT. PT STATES HE CANNOT TAKE CARE OF HIMSELF AND WANTS SNF PLACEMENT IN [place], NO FACILITY PREFERENCE, SO HE CAN BE CLOSE TO HOME AND MAYBE BE ABLE TO VISIT HER ONCE IN A WHILE. 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 PT DOES NOT YET RECEIVE DISABILITY AND HAS AN NIGHT WAREHOUSE SELECTOR FIGHTING FOR IT. PT REPORTS HE HAD BLUE CROSS PRIVATE OPTION BUT WAS DROPPED WHEN HE BECAME MEDICARE ELIGIBLE AND HAS TO REAPPLY FOR MEDICAID. PT REPORTS HAVING BIPOLAR AND MAJOR DEPRESSIVE DISORDER. CM EXPLAINED THAT CM WILL NEED TO COMPLETE BJORN SCREENING WITH PT'S ASSISTANCE. CM ALSO EXPLAINED THAT CM WILL BE CALLING ADULT PROTECTIVE SERVICES WITH PT'S ALLEGATION OF NEGLECT BY HIS PARENTS. CM EXPLAINED THAT PT'S MEDICATIONS MAY BE TOO EXPENSIVE TO ENTER LONGTERM FACILITY; PT STATES IF THAT IS A PROBLEM HE COULD JUST NOT TAKE THE EXPENSIVE HIV MEDICATIONS. CM EXPLAINED PLACEMENT PROCESS AND BJORN SCREENING PROCESS. CM PROVIDED CHOICE LISTING FOR NURSING HOMES, PT SIGNED CHOICE FOR ANY IN [place]. CM CALLED ADULT PROTECTIVE SERVICES, , PROVIDED REFERRAL FOR ALLEGATIONS OF NEGLECT. . CM TO COMPLETE BJORN SCREENING AND SEND REFERRALS TO ALL SNF'S IN [place] FOR SKILLED AND [facility] PLACEMENT CONSIDERATION SOON POSSIBLE. Kiel Goff, CASE MANAGEMENT DCPIA - Discharge Planning Initial Assessment Updated by [id number]: Kiel Goff on 03/07/19 4:26 pm * Is the patient Alert and Oriented? Yes * How many steps to enter\\exit or inside your home? * PCP DALLAS GUTHRIE, [facility] IN [place] * [facility] - HIV MEDICATIONS * Preadmission Environment Home with Family * ADLs Partial Dependent * Partial ADLs (Assistance needed) Bathing * Equipment Nebulizer Oxygen Rolling Walker Shower Chair * Other Equipment HOME AND PORTABLE OXYGEN [facility] - MEDICAL EQUIPMENT PROVIDER * List name and contact numbers for known caregivers / representatives who currently or will assist patient after discharge: MARISOL LEWIS, MOTHER, * Verbal permission to speak to the caregivers and representatives has been obtained from the patient. No * Community resources currently utilized Other * Please name any agencies selected above. OUTPATIENT DIALYSIS, [facility], [facility], [address], FAMILY TRANSPORTS * Additional services required to return to the preadmission environment? Yes * Can the patient safely return to the preadmission environment? No * Has this patient been hospitalized within the prior 30 days at any hospital? No Coverage Notice Reviewer: [id number] Sam Goff Notice Issued Date-Time: 03/07/2019 16:10 Notice Type: Patient Choice Letter Notice Delivered To: Patient Relationship to Patient: Passenger Representative Name: Delivery Method: HAND - Hand Delivered Gunjan Days: Prior Verbal Notification: Recipient Understood Notice: Yes Recipient Signature: Yes Med Rec Note Co-signed by Attending: Coverage Notice Comment: ANY NURSING FACILITY IN [place] Reviewer: [id number] Sam Goff Notice Issued Date-Time: 03/08/2019 9:25 Notice Type: Patient Choice Letter Notice Delivered To: Patient Relationship to Patient: Passenger Representative Name: Delivery Method: HAND - Hand Delivered Gunjan Days: Prior Verbal Notification: Recipient Understood Notice: Yes Recipient Signature: Yes Med Rec Note Co-signed by Attending: Coverage Notice Comment: [facility] Last DP export: 03/09/19 2:58 pm Patient Name: HALLIE COE Page [phone] at 1714 All edits/amendments must be made on the electronic document DICTATION DATE: 03/09/191713 BENCH EXAMINER: EDU 03/09/191713 RPT#: [id number] DC DATE: STATUS: ADM IN [facility] [address] [place] [address] END OF REPORT
--- NOTE | 2019-03-09 18:03 | NUR ---
NOTIFIED GARMENT PATTERNMAKER PRIMARY ABOUT PT BEING DEPRESSED AND TALKING ABOUT KILLING HIMSELF IF HE IS DISCHARGED. PRODUCTIVITY ENGINEER HAS ALREADY ASSESSED PT AND HE HAS NO PLANS OF KILLING HIMSELF HERE HOWEVER HE MIGHT WHEN HE GETS HOME. RENAL WANTS A PSYCH CONSULT AND PT WATCHED CLOSELY. IMMEDIATE PAGE IF PT STATES ANYTHING ELSE ABOUT WANTING TO HURT HIMSELF. PT TOLD ME HE DOESNT WANT TO BUT HE FEELS LIKE HE HAS NOTHING AT HOME AND NO HELP AND WOULD BE BETTER OFF AWAY FROM HOME. ALSO DISCUSSING WITH CASE MANAGEMENT ANY OTHER OPTIONS FOR DISCHARGE PLANNING. DISCUSSED WITH PRIMARY NURSE. WILL CTM.
--- NOTE | 2019-03-09 18:16 | NUR ---
QUALITY PROJECT MANAGER NOTIFIED ME THAT PER POLICY PT WILL HAVE TO BE MOVED TO ICU FOR A 1:1 MHT MONITER. NOTIFIED PRIMARY NURSE AND WILL BEGIN Q15MIN CHARTING AND ASSESSING.
--- NOTE | 2019-03-09 19:10 | NUR ---
SHIFT ASSESSMENT COMPLETE. PT IS A&O X4 AND DENIES ANY PAIN. HE IS IN GOOD SPIRITS AT THIS TIME BUT STATES THAT HE IS NAUSEATED. OFFERED COOL RAG AND TO DIM THE LIGHTS, HE STATED "JUST LEAVE ME ALONE." PERRLA, 3 MM, BRISK REACTION TO LIGHT, STRONG HAND TROUSSEAU CONSULTANT AND FOOT PUMPS. S1S2 AUIDBLE, HR 70 BPM NSR SHOWING ON MONITOR. RR EVEN AND UNLABORED, CLEAR LUNG SOUNDS HEARD BILAT THROUGHOUT ALL LOBES. ABD SOFT AND NONTENDER TO TOUCH. RADIAL AND PEDAL PULSES PALP. L SUBCLAVIAN HEMESPLIT INTACT, CLAMPED, DRESSING CDI. L FA PIV S/L. HE STATES THAT HE IS NOT HAVING ANY SI AT THIS TIME, HE IS WORRIED ABOUT WHEN HE GETS OUT OF THE HOSPITAL. HE STATES, "I HAVE NO WHERE TO GO." CM IS INFORMED OF THIS SITUATION AND IS CURRENTLY WORKING ON A SOLUTION. REFRESHMENTS BROUGHT TO BEDSIDE. TECH AT BEDSIDE Q15M DOCUMENTATION. WILL CONT TO MONITOR CLOSELY.
--- NOTE | 2019-03-09 19:20 | NUR ---
DR. HOLLIS IN UNIT, UPDATED HIM ON PT CONDITION. NO NEW ORDERS.
--- NOTE | 2019-03-09 20:15 | NUR ---
1 UN PRBC INITIATED.
--- NOTE | 2019-03-09 20:54 | NUR ---
PT REQUESTS TO FOR NURSING STAFF TO CALL HIS PARENTS TO INFORM HIM OF WHERE HE IS. WILL CALL THE POINT OF CONTACT LISTED IN CHART.
--- NOTE | 2019-03-09 21:10 | NUR ---
CALLED PT'S MOTHER DANIELLA. UPDATED HER ON PT CONDITION.
--- NOTE | 2019-03-09 23:00 | NUR ---
REASSESSMENT COMPLETE. 22G STARTED L UPPER ARM, SALINE LOC'D. DURING BATH LOWER L FA PIV D/C'D. CHG BATH GIVEN, COMPLETE LINEN CHANGE PROVIDED. PT IS ABLE TO WASH HIMSELF INDEPENDENTLY. HE IS IN GOOD SPIRITS AT THIS TIME. REFRESHMENTS AND SNACKS BROUGHT TO BEDSIDE. VSS. CALL LIGHT IN REACH, BED IN LOWEST POSITION. WILL CONT WITH POC.
[2019-03-10] VITALS (17 sets, daily range): BP systolic 120–185; BP diastolic 76–93
--- NOTE | 2019-03-10 01:00 | NUR ---
PT RESTING, TECH AT BEDSIDE. VSS. WILL CONT WITH POC.
--- NOTE | 2019-03-10 03:00 | NUR ---
REASSESSMENT COMPLETE. PT IS RESTING PEACEFULLY AND DOES NOT APPEAR TO BE IN ANY ACUTE DISTRESS AT THIS TIME. SEE FLOWSHEET FOR FURTHER DETIALS. CALL LIGHT IN REACH, TECH AT BEDSIDE.
[2019-03-10 03:55] LABS: BASOPHILS 0.5 % (0-2); EOSINOPHILS 3.8 % (0-7); HEMATOCRIT 26.3 % (42.0-54.0); HEMOGLOBIN 8.6 g/dL (13.5-17.5); IMMATURE GRANULOCYTES 1.4 % (0-5); LYMPHOCYTES 9.6 % (15-50); MCH 27.6 pg (26.0-34.0); MCHC 32.7 g/dL (31.0-37.0); MCV 84.3 fL (80.0-100.0); MEAN PLATELET VOLUME 8.5 fL (7.4-10.4); MONOCYTES 9.8 % (2-11); NEUTROPHILS 74.9 % (40-80); RBC 3.12 10x6/uL (4.20-6.10); RDW 16.3 % (11.5-14.5); WBC 18.5 10x3/uL (4.8-10.8)
[2019-03-10 03:56] LABS: PLATELET COUNT 216 10x3/uL (130-400)
[2019-03-10 04:03] LABS: ALBUMIN 2.2 g/dL (3.4-5.0); ANION GAP 12.8 mmol/L (8-16); BILIRUBIN - TOTAL 0.25 mg/dL (0.2-1.3); CALCIUM 8.4 mg/dL (8.5-10.1); CARBON DIOXIDE 25.5 mmol/L (21.0-32.0); CREATININE - SERUM 3.7 mg/dL (0.6-1.3); POTASSIUM - SERUM 3.3 mmol/L (3.5-5.1); PROTEIN - SERUM 5.7 g/dL (6.4-8.2); VANCOMYCIN - RANDOM 9.8 ug/mL (10.0-20.0)
--- NOTE | 2019-03-10 05:00 | NUR ---
PT RESTING WITH TECH AT BEDSIDE. VSS. NO SIGNS OF ACUTE DISTRESS NOTED. WILL CONT WITH POC. CALL LIGHT IN REACH. BED IN LOWEST POSITION.
--- NOTE | 2019-03-10 07:30 | NUR ---
REPORT RECEIVED. PT ALERT AND ORIENTED. SITTER AT BEDSIDE. PT HAS IV TO LEFT FOREARM THAT IS SALINE LOCKED. PT IS RESERVE RIGHT ARM AND RECEIVES DIALYSIS TUES, THURS, SAT. HEAD TO TOE ASSESSMENT DONE. VSS. WILL CONTINUE TO MONITOR.
--- NOTE | 2019-03-10 09:30 | NUR ---
SITTER AT BEDSIDE. VSS. WILL CONTINUE TO MONITOR.
--- NOTE | 2019-03-10 11:00 | NUR ---
RESTING QUIETLY. VSS.
--- NOTE | 2019-03-10 11:48 | MORECARE ---
CASE MANAGEMENT DISCHARGE SUMMARY PATIENT: HALLIE COE UNIT: [id number] ADM DATE: 03/06/19 AGE: 58 : 62 SEX: M ROOM/BED: D.2314 AUTHOR: ALDAIR,DOC PHYSICIAN: REFERRING PHYSICIAN: MATEO HOLLIS MD DATE OF SERVICE: 03/10/19 Discharge Plan Patient Name: HALLIE COE Facility: [facility]:[place] : 1960 Planned Disposition: Home with Home Health Anticipated Discharge Date: 03/10/19 Discharge Date: Expected LOS: 4 Initial Reviewer: [email or web address] Initial Review Date: 03/07/2019 Generated: 03/10/19 12:48 pm Comments DCP- Discharge Planning Updated by [id number]: Kiel Goff on 03/10/19 10:[address] Patient Name: HALLIE COE Encounter No: [id number] : 1960 Primary Insurance: MEDICARE A & B Anticipated DC Date: 03-10-2019 Planned Disposition: Home with Home Health External Planned Provider: [facility] DCP follow-up note: CM RECEIVED CALL FROM MAGGIE LUIS OF [facility], , WHO INFORMED CM THAT HE WILL COME AND SEE PT IN HOSPITAL TODAY. MR. LUIS ASKED FOR RECORDS TO BE FAXED; CM FAXED REQUESTED RECORDS TO [facility] AT [phone]. CM TO ARRANGE HOME HEALTH WITH [facility] WITH PHYSICIAN AGREEMENT AND ORDERS. PT'S PRIMARY CARE PHYSICIAN IS D[facility]AS GUTHRIE, [facility] [place]. Kiel Goff, CASE MADISON DCP- Discharge Planning Updated by [id number]: Kiel Goff on 03/09/19 4:[address] Patient Name: HALLIE COE Encounter No: [id number] : 1960 Primary Insurance: MEDICARE A & B Anticipated DC Date: 03-10-2019 Planned Disposition: Home with Home Health External Planned Provider: [facility] DCP follow-up note: CM RECEIVED FAX FROM [employer], PT GARBER SNOT MEET DETENTION CRITERIA AND HAS BEEN DENIED DETENTION PLACEMENT BY OFFICE OF CORRECTION CARE. CM NOTIFIED PT IN ROOM. PT REPORTS SPEAKING TO HIS PRIMARY DOCTORS OFFICE TODAY AND THAT THEY RECOMMENDED TO PT THAT HE GO HOME WITH HOME HEALTH. PT IS AGREEABLE TO PLAN AND HAS SIGNED CONSENT FOR [facility] WITH CM PREVIOUSLY PT ALSO REPORTS HAVING SPOKEN TO MEDICAID OFFICE TODAY, THEY ARE MAILING HIM PAPERS TO HIS HOME TO COMPLETE AND PT HAS BEEN INSTRUCTED TO COME TO [facility] OFFICE IN [place] IF HE NEEDS ASSISTANCE FILLING THEM OUT. CM SPOKE TO [facility] WORKER MAGGIE LUIS WHO VERIFIED CM'S REPORT OF NEGLECT HAS BEEN RECEIVED AND THEY WILL BE FOLLOWING UP WITH PT AT HOME IF NECESSARY, ONCE THE REPORT IS ASSIGNED TO A WORKER. PT IS IN AGREEMENT WITH GOING HOME WITH HOME HEALTH. CM TO ARRANGE HOME HEALTH WITH [facility] WITH PHYSICIAN AGREEMENT AND ORDERS. PT'S PRIMARY CARE PHYSICIAN IS DALLAS GUTHRIE, [facility] [place]. Kiel Goff, CASE MANAGEMENT Appended by Kiel Goff on 03/09/2019 17:14 CDT: CM SPOKE TO DR. HOLLIS WHO INFORMED CM THAT PT WILL DISCHARGE HOME TOMORROW. CM SPOKE TO PT IN ROOM AND DISCUSSED DISCHARGE HOME. PT REPORTS HE HAS NO RIDE HOME AND HIS MOTHER HAD MAJOR SURGERY AND IS NOT AVAILABLE. CM DISCUSSED FAMILY, FRIENDS, OTHER FAMILY MEMBERS FRIENDS OR OTHER SUPPORT SYSTEM PERSONS THAT MAY ASSIST. PT STATES HE HAS NO WAY TO DIALYSIS AND MIGHT WELL GO ON HOSPICE AND "KILL MYSELF." PT STATES "LOOK AT ME, I CAN'T TAKE CARE OF MYSELF, CAN'T TAKE MY MEDICATIONS AND CAN'T EVEN EAT." PT STATES "HOSPICE WILL TAKE ME OFF DIALYSIS... AT LEAST THEY WILL TAKE CARE OF ME." CM AGREED THAT IF PT AGREED TO HOSPICE AND HE STOPPED DIALYSIS, HE WOULD . CM INFORMED PT THAT CM DID CALL MEDICAID TRANSPORT IN [facility] AND THEY WILL NOT TRANSPORT HIM TO DIALYSIS, EVEN FOR [place], AND WILL ONLY TRANSPORT IF PT HAS MEDICAID. PT STATES HE COULD DRIVE HIMSELF BUT "THAT WOULD NOT BE SAFE." CM EXPLAINED THAT PT WILL NEED TO CALL THE PEOPLE IN HIS PERSONAL SUPPORT SYSTEM AND ASK FOR HELP IF HIS PARENTS ARE NOT ABLE TO DO IT. PT STATES THAT HE WILL TRY TO CALL AND FIND A RIDE HOME AND TO DIALYSIS. CM DISCUSSED COMPLETING MEDICAID APPLICATION SOON POSSIBLE DISCUSSED EARLIER TODAY. PT STATES THAT ALL HE GETS IS A RUN AROUND FROM THE MEDICAID PEOPLE AND THAT HIS PRIMARY DOCTOR HAS A SPINNING MULE OPERATOR THAT HAS PROMISED TO LOOK FOR HELP FOR PT BUT HAS NOT COME THROUGH WITH ANYTHING YET. CM POINTED OUT THAT DEPARTMENT OF HUMAN SERIVCES HAS OFFERED TO ASSIST PT WITH FILLING OUT THE APPLICATION. PT DID NOT RESPOND. CM ENCOURAGED PT TO FILL OUT THE APPLICATION REQUESTED, WORK WITH HIS PRIMARY DOCTOR AND SPINNING MULE OPERATOR TO WORK OUT THESE PROBLEMS. PT LOOKED AT THE CLOCK AND STATED "IT'S FIVE O'CLOCK, IT'S TOO LATE TO CALL ANYONE FOR A RIDE." CM INFORMED PT THAT HE WILL BE DISCHARGED TOMORROW AND HE WOULD BE MORE LIKELY TO FIND SOMEONE TO ASSIST IF HE CALLED NOW WITH ADVANCE NOTICE. PT DID NOT RESPOND. CM PROVIDED AND EXPLAINED IMPORTANT MESSAGE FROM MEDICARE. PT STATES HE STILL WANTS HOME HEALTH WITH [facility]. CM DISCUSSED STATEMENTS PT MADE WITH BEDSIDE NURSE WHO WAS IN THE ROOM DURING SOME OF THE CONVERSATION. BEDSIDE NURSE WILL NOTIFY MINING ENGINEER OF PT'S SUICIDAL STATEMENT. PT'S NURSE CALL LIGHT CAME ON, CM REPONDED, PT TOLD CM THAT HE NURSE DID NOT COME BACK WITH HIS MEDICATIONS. CM TO ARRANGE HOME HEALTH WITH [facility] WITH PHYSICIAN AGREEMENT AND ORDERS. PT'S PRIMARY CARE PHYSICIAN IS D[place]AS GUTHRIE, [facility] IN [place]. Kiel Goff, CASE MANAGEMENT DCP- Discharge Planning Updated by [id number]: Kiel Goff on 03/08/19 3:[address] Patient Name: HALLIE COE Encounter No: [id number] : 1960 Primary Insurance: MEDICARE A & B Anticipated DC Date: Planned Disposition: Halfway Facility External Planned Provider: [facility] ACCEPTING FACILITY IN [place], MEDICARE REHAB BED DISCHARGE PLANNING NOTE: CM MET WITH PT IN ROOM TO COMPLETE BJORN SCREENING FORM. BJORN COMPLETED, PT SIGNED. PT REPORTS HE IS NOT SURE NOW IF HE WANTS TO GO TO DETENTION AT DISCHARGE AND STATES HE MAY JUST GO BACK HOME WITH HOME HEALTH. CM ASKED ABOUT THE NEGLECTFUL CARE PT REPORTED YESTERDAY, BRING LOCKED IN ROOM WITH NO FOOD OR WATER. PT STATES THAT HE IS SAFE AT HOME WITH HIS PARENTS AND JUST NEEDS TO FIND A WAY TO GET ASSISTANCE AT HOME TO "TAKE THE PRESSURE OFF OF THEM". PT HAS TALKED TO MEDICAID OFFICE VIA PHONE TODAY AND THEY ARE SENDING HIM INFORMATION REGARDING HIS "QMB" MEDICAID. PT STATES IF HE GOES HOME WITH HOME HEALTH, HE WANTS [facility] FOR PHYSICAL THERAPY AND STATION USHER TO ASSIST WITH BATHING. CHOICE SIGNED. CM PROVIDED PT WITH HOME HEALTH LISTING AND EXPLAINED HOW TO ACCESS MEDICARE REVIEW INFORMATION FOR PROVIDERS. PT WOULD LIKE CM TO CONTINUE WITH LOOKING FOR DETENTION, BUT FOR REHAB SERVICES. CM FAXED REFERRALS TO [facility], [facility] AND [facility] IN [place]. [facility] REFERRAL MADE 03-07-19 FOR ALLEGATIONS OF NEGLECT. . CM WAITING PHYSICIAN SIGNATURES ON BJORN SCREENING AND WILL FAX TO [employer] ONCE PHYSICIAN SIGNATURE HAS BEEN OBTAINED. Kiel Goff, CASE MANAGEMENT Appended by Kiel Goff on 03/08/2019 16:06 CDT: CM RECEIVED CALL FROM [facility], WHO INFORMED CM THAT THEY CANNOT MEET PT'S NEEDS. MARTY OF [facility] MET WITH PT IN ROOM FOR ASSESSMENT THIS AFTERNOON. CM NOTIFIED MAYKEL STROUD THAT SIGNATURE ON BJORN ASSESSMENT IS NEEDED. CM WAITING ADMISSION DETERMINATIONS FROM [facility], [facility] AND [facility] IN [place]. [facility]ULT [facility] REFERRAL MADE 03-07-19 FOR ALLEGATIONS OF NEGLECT. . CM WAITING PHYSICIAN SIGNATURES ON BJORN SCREENING AND WILL FAX TO [employer] ONCE PHYSICIAN SIGNATURE HAS BEEN OBTAINED. Kiel Goff CASE MANAGEMENT Appended by Kiel Goff on 03/08/2019 16:59 CDT: CM OBTAINED PHYSICIAN SIGNATURES ON BJORN SCREENING AND FAXED TO [employer]. CM WAITING BJORN SCREENING DETERMINATION WELL ADMISSION DETERMINATIONS FROM [facility], [facility] AND [facility] IN [place]. [facility]ULT [facility] REFERRAL MADE 03-07-19 FOR ALLEGATIONS OF NEGLECT. . Kiel Goff, CASE MANAGEMENT DCP- Discharge Planning Updated by [id number]: Kiel Goff on 03/07/19 3:[address] Patient Name: HALLIE COE Encounter No: [id number] : 1960 Primary Insurance: MEDICARE A & B Anticipated DC Date: Planned Disposition: Halfway Facility External Planned Provider: FIRST ACCEPTING FACILITY IN [place], MEDICARE REHAB BED DISCHARGE PLANNING NOTE: CM RECEIVED ORDER FOR "DETENTION BASICALLY". CM MET WITH PT IN ROOM TO DISCUSS DISCHARGE PLANNING AND NEEDS. PT REPORTS LIVING AT HOME DEPENDENTLY WITH HIS MOTHER AND STEP FATHER. PT REPORTS INDEPENDENCE IN MEDICATION MANAGEMENT AND TOILETING. PT STATES HE WAS UNABLE TO FEED HIMSELF; CM ASKED FOR CLAIFICATION, PT STATES THAT HIS PARENTS HAD LOCKED HIM IN HIS ROOM AND WOULD NOT GIVE HIM ANY FOOD OR WATER. PT STATES HE IS NOT ABLE TO COOK FOR HIMSELF AND HIS MOTHER WOULD NOT COOK FOR HIM OR BRING HIM FOOD OR WATER AND EXPECTED HIM TO GET UP AND DO IT HIMSELF. PT STATES HE HAD NO BATH FOR 6 WEEKS BECAUSE HE IS NOT ABLE AND HIS PARENTS WILL NOT HELP HIM. PT HAS SHOWER CHAIR, ROLLING WALKER WITH SEAT AND BRAKES, NEBLUIZER AND HOME AND PORTABLE OXYGEN FROM [facility]. PT HAS NO OUTSIDE SERVICES ASSISTING IN THE HOME. PT DEPENDS ON HIS MOTHER FOR TRANSPORT TO AND FROM OUTPATIENT DIALYSIS IN [place] ON [address] SCHEDULE. CM DISCUSSED AVAILABILITY OF HOME HEALTH, REHAB SERVICES AND MEDICAL EQUIPMENT. PT STATES HE CANNOT TAKE CARE OF HIMSELF AND WANTS DETENTION PLACEMENT IN [place], NO FACILITY PREFERENCE, SO HE CAN BE CLOSE TO HOME AND MAYBE BE ABLE TO VISIT HER ONCE IN A WHILE. 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 PT DOES NOT YET RECEIVE DISABILITY AND HAS AN TOOTH POLISHER FIGHTING FOR IT. PT REPORTS HE HAD [employer] CROSS PRIVATE OPTION BUT WAS DROPPED WHEN HE BECAME MEDICARE ELIGIBLE AND HAS TO REAPPLY FOR MEDICAID. PT REPORTS HAVING BIPOLAR AND MAJOR DEPRESSIVE DISORDER. CM EXPLAINED THAT CM WILL NEED TO COMPLETE BJORN SCREENING WITH PT'S ASSISTANCE. CM ALSO EXPLAINED THAT CM WILL BE CALLING ADULT PROTECTIVE SERVICES WITH PT'S ALLEGATION OF NEGLECT BY HIS PARENTS. CM EXPLAINED THAT PT'S MEDICATIONS MAY BE TOO EXPENSIVE TO ENTER PRISON FACILITY; PT STATES IF THAT IS A PROBLEM HE COULD JUST NOT TAKE THE EXPENSIVE HIV MEDICATIONS. CM EXPLAINED PLACEMENT PROCESS AND BJORN SCREENING PROCESS. CM PROVIDED CHOICE LISTING FOR NURSING HOMES, PT SIGNED CHOICE FOR ANY IN [place]. CM CALLED ADULT PROTECTIVE SERVICES, , PROVIDED REFERRAL FOR ALLEGATIONS OF NEGLECT. . CM TO COMPLETE BJORN SCREENING AND SEND REFERRALS TO ALL DETENTION'S IN [place] FOR SKILLED AND CORRECTION CARE PLACEMENT CONSIDERATION SOON POSSIBLE. Kiel Goff, CASE MANAGEMENT DCPIA - Discharge Planning Initial Assessment Updated by [id number]: Kiel Goff on 03/07/19 4:26 pm * Is the patient Alert and Oriented? Yes * How many steps to enter\\exit or inside your home? * PCP DALLAS GUTHRIE, [facility] [place] * Pharmacy [facility] - HIV MEDICATIONS * Preadmission Environment Home with Family * ADLs Partial Dependent * Partial ADLs (Assistance needed) Bathing * Equipment Nebulizer Oxygen Rolling Walker Shower Chair * Other Equipment HOME AND PORTABLE OXYGEN [facility] - MEDICAL EQUIPMENT PROVIDER * List name and contact numbers for known caregivers / representatives who currently or will assist patient after discharge: MARISOL LEWIS, MOTHER, * Verbal permission to speak to the caregivers and representatives has been obtained from the patient. No * Community resources currently utilized Other * Please name any agencies selected above. OUTPATIENT DIALYSIS, [facility], [facility], 1100, FAMILY TRANSPORTS * Additional services required to return to the preadmission environment? Yes * Can the patient safely return to the preadmission environment? No * Has this patient been hospitalized within the prior 30 days at any hospital? No External Providers External Provider: OTHER-OTHER Next Contact Date: 03/10/2019 Service Request Date: Service Type: Resolution: Reviewer: Comments: Coverage Notice Reviewer: [id number] Goff Notice Issued Date-Time: 03/07/2019 16:10 Notice Type: Patient Choice Letter Notice Delivered To: Patient Relationship to Patient: Warning Coordination Meteorologist Name: Delivery Method: HAND - Hand Delivered Gunjan Days: Prior Verbal Notification: Recipient Understood Notice: Yes Recipient Signature: Yes Med Rec Note Co-signed by Attending: Coverage Notice Comment: ANY NURSING FACILITY IN [place] Reviewer: [id number] Goff Notice Issued Date-Time: 03/08/2019 9:25 Notice Type: Patient Choice Letter Notice Delivered To: Patient Relationship to Patient: Warning Coordination Meteorologist Name: Delivery Method: HAND - Hand Delivered Gunjan Days: Prior Verbal Notification: Recipient Understood Notice: Yes Recipient Signature: Yes Med Rec Note Co-signed by Attending: Coverage Notice Comment: [facility] Reviewer: [id number] Goff Notice Issued Date-Time: 03/09/2019 17:00 Notice Type: IM Discharge Notice Notice Delivered To: Patient Relationship to Patient: Warning Coordination Meteorologist Name: Delivery Method: HAND - Hand Delivered Gunjan Days: Prior Verbal Notification: Recipient Understood Notice: Yes Recipient Signature: Yes Med Rec Note Co-signed by Attending: Coverage Notice Comment: Last DP export: 03/09/19 4:14 pm Patient Name: HALLIE COE Page [id number] at 1148 All edits/amendments must be made on the electronic document DICTATION DATE: 03/10/191146 EDUCATION REVIEWER: EDU 03/10/191146 RPT#: [id number] DC DATE: STATUS: ADM IN [facility] [address] [place] [address] END OF REPORT
--- NOTE | 2019-03-10 12:00 | NUR ---
APS IN TO SPEAK WITH PT.
--- NOTE | 2019-03-10 13:15 | NUR ---
LUNCH TRY AT BEDSIDE FOR WHEN PT IS DONE SPEAKING WITH APS.
--- NOTE | 2019-03-10 15:00 | NUR ---
VANC INFUSING PER ORDER INTO LEFT FOREARM. SITTER AT BEDSIDE. VSS. WILL MONITOR.
[2019-03-10 15:32] LABS: HEMATOCRIT 27.2 % (42.0-54.0); HEMOGLOBIN 8.9 g/dL (13.5-17.5)
--- NOTE | 2019-03-10 16:41 | EC ---
PATIENT:HALLIE COE DATE OF SERVICE: 03/06/19 SEX: M MEDICAL RECORD: [id number] DATE OF : [birth year] LOCATION:[facility] AGE OF PATIENT: 58 ADMISSION DATE: 03/06/19 REFERRING PHYSICIAN: INTERPRETING PHYSICIAN: MERT VIRAMONTES MD ECHOCARDIOGRAM REPORT ECHO CHARGES 4 ECHO COMPLETE Date: 03/07/19 CLINICAL DIAGNOSIS: R/O VEG ECHOCARDIOGRAPHIC MEASUREMENTS (adult normal given) AC root (d.<3.7cm) 3.0 cm LV Septum d (<1.2 cm> 1.3 cm Valve Excursion 1.9 cm LV Septum (systole) 1.7 cm Left Atria (s.<4.0cm> 3.5 cm LVPW d(<1.2cm) 1.2 cm RV (d.<2.3cm) 2.7 cm LVPW (sytole) 1.5 cm LV diastole(<5.6CM) 4.2 cm MV E-F(>70mm/sec) cm LV systole 3.3 cm LVOT Diameter 1.9 cm MV exc.(>10mm) cm Est.ejection fraction (50-75%) % DOPPLER: LVIT cm/sec A 85 cm/sec E 68 cm/sec LA cm/sec RVSP 42.9 mmHg LVOT 101 cm/sec AOP1/2T m/s Asc. Ao 141 cm/sec RVOT 93 cm/sec RA cm/sec PA 102 cm/sec AV Gradient Peak 8.0 mmHg AV Mean 5.0 mmHg AV Area 1.9 cm MV Gradient Peak 4.2 mmHg MV Mean 2.5 mmHg MV Area cm COMMENTS: Refinery Technician: Manish AGUIRRE Circulating Nurse: 1 Dr. Viramontes TAPE# PACS Pericardial Effusion Y DATE OF SERVICE: 03/07/2019 ECHOCARDIOGRAM DATE OF SERVICE: 03/07/2019 FINDINGS: 1. Left ventricular chamber size is within normal limits. Left ventricular systolic function is normal. Overall ejection fraction estimated at 60%. 2. Left atrium is within normal limits. Right atrium and right ventricular ECHOCARDIOGRAM REPORT [id number] HALLIE COE chamber sizes are mildly dilated. 3. Valvular structures have normal structure and motion. No evidence of vegetative endocarditis. 4. Doppler interrogation reveals mild tricuspid regurgitation, no other valvular insufficiency or stenosis. Pulmonary systolic pressure is estimated at 43 mmHg. 5. No evidence of pericardial effusion or left ventricular thrombus. TRANSINT:[id number] Voice Confirmation ID: [id number] DOCUMENT ID: [id number] MERT VIRAMONTES MD at 1641 CC: [id number] DICTATION DATE: 03/07/19 1215 SENIOR CLINICAL STUDY MANAGER: 03/07/19 1235 ADM IN [facility] [address] [place] [id number]
--- NOTE | 2019-03-10 17:15 | NUR ---
PT SLEEPING WITH UNLABORED RESPIRATIONS. VSS. SITTER AT BEDSIDE.
--- NOTE | 2019-03-10 19:00 | NUR ---
RECEIVED PATIENT FROM DAY SHIFT RN. STEVAN X 3. INITIAL SHIFT ASSESSMENT COMPLETED, SEE FLOWSHEET. KRISTIN KUMAR AT BEDSIDE. NO COMPLAINTS OF PAIN OR DISCOMFORT AT THIS TIME. WILL MONITOR CLOSELY THROUGH OUT THE NIGHT.
--- NOTE | 2019-03-10 21:00 | NUR ---
NO ACUTE CHANGES NOTED. VSS. NO PM MEDS ORDERED. WILL CTM.
--- NOTE | 2019-03-10 23:00 | NUR ---
REASSESSMENT COMPLETED, SEE FLOWSHEET. PATIENT COMPLAINED OF CONSTIPATION, PRUNE JUICE AND SPRITE GIVEN BY SITTER. PATIENT SAT ON BEDSIDE COMMODE, BUT NO RELIEF NOTED AT THIS TIME. WILL CTM.
[2019-03-11] VITALS (19 sets, daily range): BP systolic 112–148; BP diastolic 68–92
--- NOTE | 2019-03-11 01:00 | NUR ---
NO ACUTE CHANGES NOTED. VSS. PATIENT APPEARS TO BE RESTING COMFORTABLY. WILL CTM.
--- NOTE | 2019-03-11 03:00 | NUR ---
REASSESSMENT COMPLETED, SEE FLOWSHEET. NO CHANGE.
[2019-03-11 05:18] LABS: BASOPHILS 0.6 % (0-2); EOSINOPHILS 3.9 % (0-7); HEMATOCRIT 25.3 % (42.0-54.0); HEMOGLOBIN 8.3 g/dL (13.5-17.5); IMMATURE GRANULOCYTES 0.9 % (0-5); LYMPHOCYTES 8.4 % (15-50); MCHC 32.8 g/dL (31.0-37.0); MCV 85.5 fL (80.0-100.0); MEAN PLATELET VOLUME 8.6 fL (7.4-10.4); MONOCYTES 9.3 % (2-11); NEUTROPHILS 76.9 % (40-80); PLATELET COUNT 223 10x3/uL (130-400); RBC 2.96 10x6/uL (4.20-6.10); RDW 16.7 % (11.5-14.5); WBC 17.6 10x3/uL (4.8-10.8)
[2019-03-11 05:24] LABS: ALBUMIN 2.2 g/dL (3.4-5.0); ANION GAP 15.8 mmol/L (8-16); BILIRUBIN - TOTAL 0.26 mg/dL (0.2-1.3); CALCIUM 8.4 mg/dL (8.5-10.1); CARBON DIOXIDE 22.5 mmol/L (21.0-32.0); CREATININE - SERUM 4.5 mg/dL (0.6-1.3); PHOSPHOROUS 3.9 mg/dL (2.5-4.9); POTASSIUM - SERUM 3.3 mmol/L (3.5-5.1); PROTEIN - SERUM 5.5 g/dL (6.4-8.2); VANCOMYCIN - RANDOM 25.6 ug/mL (10.0-20.0)
--- NOTE | 2019-03-11 07:00 | NUR ---
REC'D AWAKE/ALERT, VSS
--- NOTE | 2019-03-11 07:45 | NUR ---
ASSESSED, DISCUSSED HOME CARE SITUATION. DENIES WANTING TO HURT SELF. SITTER @ BEDSIDE.
--- NOTE | 2019-03-11 10:37 | NUR ---
RESTING COMFORTABLY IN BED.
--- NOTE | 2019-03-11 11:38 | CN ---
PATIENT NAME:HALLIE COE MEDICAL RECORD: [id number] : 62 LOCATION:[facility] ADMIT DATE: 03/06/19 ACCOUNT: [id number] CONSULTING PHYSICIAN: JERONIMO ESCAMILLA MD REFERRING PHYSICIAN: MATEO HOLLIS MD DATE OF CONSULTATION: 03/10/2019 IDENTIFYING DATA: The patient is 58 years old. He is admitted to the hospital secondary to a severe staph infection. CHIEF COMPLAINT: "I just lost my head." HISTORY OF PRESENT ILLNESS: The patient is under a lot of stress. He is critically ill. He has hypertension. He has been HIV positive for 30 years. He has COPD and few weeks or months ago, he had to go on dialysis because of end-stage renal disease. He now has a staph infection. He says he has been frustrated at home because the home health agency is not taking good care of him. He gives some details about how they do not adequately monitor his condition, assist him with personal care, etc. He endorses lots of neurovegetative depressive symptoms. He says that he got frustrated and said he would just go home and starve himself to and indeed, he has lost a great deal of weight, but he says that is because he just has not been well. He now recants all of those things saying that he is not going to try to hurt himself, he was just angry and frustrated. MENTAL STATUS EXAMINATION: The patient is awake, alert and oriented fully. His mood is depressed. His affect is constricted. Thought processes are circumstantial. Memory, concentration, and abstraction abilities are mildly impaired. He denies that he would seek to harm himself or others. He denies overt psychotic symptoms. ASSESSMENT: Major depression. PLAN: The patient will be continued on Celexa and risperidone. He has taken these for some time. He feels they are helpful. He does not want me to change them. I think his acute risk is small and I will reassess him tomorrow. He denies that he is having psychotic symptoms and he is wanting us to help him make an appointment with the [facility] in [facility]. Apparently, there is a branch office in [place] and he has gone there for services and would like to return. TRANSINT:[id number] Voice Confirmation ID: [id number] DOCUMENT ID: [id number] JERONIMO ESCAMILLA MD at 1138 CC: [id number] DICTATION DATE: 03/10/19 162 LANGUAGE TRANSLATOR: 03/10/192105 ADM IN [place] [address] [place] [address]
--- NOTE | 2019-03-11 15:00 | NUR ---
TO SUITE -OK'D BY DR HOLLIS, STACY POWERS'D PER DR ESCAMILLA.
[2019-03-11 19:26] LABS: HEMATOCRIT 26.3 % (42.0-54.0); HEMOGLOBIN 8.7 g/dL (13.5-17.5)
--- NOTE | 2019-03-11 20:47 | NUR ---
1899 REPORT RECIEVED. 1914 PATIENT ARRIVED TO UNIT FROM HD. ACCOMPANIED BY HD RN. PATIENT DENIES PAIN. BEGAN EATING DINNER. SHIFT ASSESSMENT COMPLETE, PLEASE SEE FLOW SHEETS FOR DETAILS. VSS UPON ARRIVAL. 1919 ASKED FOR ZOFRAN. FLUSHED LEFT WRIST PIV, INFILTRATED. STARTED NEW PIV 22G 1ST TRY TO LEFT HAND. FLUSHED WELL, GAVE ZOFRAN THROUGH THIS. CHANGED DRESSING TO HEMOSPLIT PER HOSPITAL PROTOCOL USING ASEPTIC TECHNIQUE. PROVIDED FOR NEEDS. 2039 UP TO COMMODE. SMALL DARK BM NOTED, 350ML URINE OUT. TOLERATES AMBULATION WELL. VSS, BED LOW AND LOCKED, CALL LIGHT IN REACH. WILL CONTINUE PLAN OF CARE.
--- NOTE | 2019-03-11 23:00 | NUR ---
REASSESSMENT COMPLETE, PLEASE SEE FLOW SHEETS FOR DETAILS. NO ACUTE CHANGES TO NOTE. DENIES PAIN/NEEDS. VSS, BED LOW ADN LOCKED, CALL LIGHT IN REACH. WILL CONTINUE PLAN OF CARE.
[2019-03-12] VITALS (20 sets, daily range): BP systolic 104–150; BP diastolic 74–101
--- NOTE | 2019-03-12 00:56 | NUR ---
RESTING, VSS. BED LOW AND LOCKED, CALL LIGHT IN REACH. WILL CONTINUE PLAN OF CARE.
--- NOTE | 2019-03-12 03:00 | NUR ---
REASSESSMENT COMPLETE, PLEASE SEE FLOW SHEETS FOR DETAILS. NO ACUTE CHANGES TO NOTE. DENIES PAIN/NEEDS. VSS. BED LOW AND LOCKED, CALL LIGHT IN REACH. WILL CONTINUE PLAN OF CARE.
[2019-03-12 03:19] LABS: BASOPHILS 0.8 % (0-2); EOSINOPHILS 3.7 % (0-7); HEMOGLOBIN 8.6 g/dL (13.5-17.5); LYMPHOCYTES 15.9 % (15-50); MCH 27.5 pg (26.0-34.0); MCHC 31.9 g/dL (31.0-37.0); MCV 86.3 fL (80.0-100.0); MEAN PLATELET VOLUME 8.5 fL (7.4-10.4); MONOCYTES 12.4 % (2-11); NEUTROPHILS 66.2 % (40-80); PLATELET COUNT 202 10x3/uL (130-400); RBC 3.13 10x6/uL (4.20-6.10); RDW 16.2 % (11.5-14.5); WBC 14.3 10x3/uL (4.8-10.8)
[2019-03-12 03:27] LABS: ALBUMIN 2.2 g/dL (3.4-5.0); ANION GAP 9.5 mmol/L (8-16); BILIRUBIN - TOTAL 0.23 mg/dL (0.2-1.3); CALCIUM 8.6 mg/dL (8.5-10.1); POTASSIUM - SERUM 3.5 mmol/L (3.5-5.1); PROTEIN - SERUM 5.8 g/dL (6.4-8.2); VANCOMYCIN - RANDOM 15.6 ug/mL (10.0-20.0)
--- NOTE | 2019-03-12 05:00 | NUR ---
UP TO COMMODE. PROVIDED FOR NEEDS. VSS. CONTINUING PLAN OF CARE.
--- NOTE | 2019-03-12 07:34 | NUR ---
THE PATIENT WAS LYING IN BED AND WATCHING TELEVISION WHEN STAFF ENTERED HIS ROOM. PATIENT IS ALERT WITH CLEAR SPEECH AND DENIES ANY PAIN. PATIENT IS CONNECTED TO STANDARD ICU MONITORS WITH ALL ALARMS SET, VERIFIED AND AUDIABLE. BED IS IN THE LOW POSITION WITH SIDERAILS X2 AND CALL LIGHT WITHIN REACH. ALL IV LINES ARE LABELED AND NOT IN NEED OF CHANGING AT THIS TIME. THE PATIENT DEMONSTRATES APPROPRIATE USE OF A CALL LIGHT. THE PATIENT APPEARS COMFORTABLE WITH NO QUESTIONS OR CONCERNS AT THIS TIME.
--- NOTE | 2019-03-12 07:49 | NUR ---
THE PATIENT WAS WATCHING TELEVISION WHEN STAFF ENTERED HIS ROOM. THE PATIENT IS ALERT WITH CLEAR SPEECH AND DENIES ANY PAIN. PATIENT IS CONNECTED TO STANDARD ICU MONITORS WITH ALL ALARMS SET AND VERIFIED. BED IS IN THE LOW POSITION WITH SIDERRAILS X2 AND CALL LIGHT IS WITHIN REACH. THE PATIENT APPEARS COMFORTABLE WITH NO QUESTIONS OR CONCERNS AT THIS TIME.
--- NOTE | 2019-03-12 10:17 | PN ---
PATIENT:HALLIE COE MEDICAL RECORD: [id number] [facility]ATION[facility] D.231 ADMISSION DATE: 03/06/19 PROGRESS NOTE DATE OF SERVICE: 03/11/2019 SUBJECTIVE: The patient's case was discussed with staff. He has no new complaint. OBJECTIVE: The patient is depressed, but not suicidal. He has no psychotic symptoms. ASSESSMENT: Major depression. PLAN: The patient is not representing an acute risk to himself or others. He does not require a sitter, but he should have outpatient mental health follow up after discharge. TRANSINT:[id number] Voice Confirmation ID: [id number] DOCUMENT ID: [id number] JERONIMO ESACMILLA MD at 1017 CC: [id number] DICTATION DATE: 03/11/19 1145 SCHEDULING AGENT: 03/11/19 1200 ADM IN [facility] [address] [place] [address]
--- NOTE | 2019-03-12 12:12 | NUR ---
THE PATIENT IS UP AND USING THE COMMODE. THE PATIENT APPEARS COMFORTABLE AND HAS NO QUESTIONS OR CONCERNS AT THIS TIME.
[2019-03-12 15:27] LABS: HEMATOCRIT 28.4 % (42.0-54.0); HEMOGLOBIN 9.1 g/dL (13.5-17.5)
--- NOTE | 2019-03-12 19:51 | NUR ---
PT STATES THAT HE IS HUNGRY AND COULD NOT REMEMBER IF HE RECEIVED DINNER. SANDWICH GIVEN AND PT REQUEST NAUSEA MEDICATION PRIOR TO EATING. ORAL NAUSEA MEDICATION GIVEN PER MAR AND PT STATES HE WILL WAIT ALITTLE BEFORE EATING. CALL LIGHT IN REACH. WILL CONTINUE TO OBSERVE,
--- NOTE | 2019-03-12 21:02 | NUR ---
PT WITH EYES CLOSES AND CHEST RISING. VSS. CALL LIGHT IN REACH. WILL CONTINUE TO OBSERVE.
--- NOTE | 2019-03-12 23:20 | NUR ---
REASSESSMENT COMPLETED, SEE FLOW SHEET, VSS. CALL LIGHT IN REACH. WILL CONTINUE TO OBSERVE.
[2019-03-13] VITALS (14 sets, daily range): BP systolic 107–145; BP diastolic 66–787
--- NOTE | 2019-03-13 01:09 | NUR ---
PT RESTING WITH EYES CLOSED AND CHEST RISING. VSS. WILL CONTINUE TO OBSERVE.
[2019-03-13 03:11] LABS: BASOPHILS 0.9 % (0-2); EOSINOPHILS 3.9 % (0-7); HEMATOCRIT 29.2 % (42.0-54.0); HEMOGLOBIN 9.4 g/dL (13.5-17.5); IMMATURE GRANULOCYTES 0.7 % (0-5); LYMPHOCYTES 13.4 % (15-50); MCH 27.8 pg (26.0-34.0); MCHC 32.2 g/dL (31.0-37.0); MCV 86.4 fL (80.0-100.0); MEAN PLATELET VOLUME 8.4 fL (7.4-10.4); MONOCYTES 8.8 % (2-11); NEUTROPHILS 72.3 % (40-80); PLATELET COUNT 243 10x3/uL (130-400); RBC 3.38 10x6/uL (4.20-6.10); RDW 16.2 % (11.5-14.5); WBC 15.1 10x3/uL (4.8-10.8)
[2019-03-13 03:24] LABS: ALBUMIN 2.4 g/dL (3.4-5.0); ANION GAP 14.8 mmol/L (8-16); BILIRUBIN - TOTAL 0.32 mg/dL (0.2-1.3); CALCIUM 8.8 mg/dL (8.5-10.1); CARBON DIOXIDE 24.8 mmol/L (21.0-32.0); CREATININE - SERUM 3.8 mg/dL (0.6-1.3); PHOSPHOROUS 4.5 mg/dL (2.5-4.9); POTASSIUM - SERUM 3.6 mmol/L (3.5-5.1); PROTEIN - SERUM 6.1 g/dL (6.4-8.2); VANCOMYCIN - RANDOM 26.8 ug/mL (10.0-20.0)
--- NOTE | 2019-03-13 03:36 | NUR ---
REASSESSMENT COMPLETED, SEE FLOW SHEET. VSS. CALL LIGHT IN REACH. WILL CONTINUE TO OBSERVE.
--- NOTE | 2019-03-13 04:58 | NUR ---
PT COUGHED AFTER TAKING DRINK OF WATER. SPITING OUT WATER. PT STATES HE THREW UP, LIQUID WAS CLEAR. DUE TO COUGHING PT INCONTINENT OF BOWEL. PT ON BEDSIDE COMMODE. BREIF ONLY WAS SOILED. NEW BRIEF PROVIDED AND WIPES. NEW GOWN PROVIDED. PADS NOT SOILED BUT CHANGED. FLAT SHEET AND BLANKET CHANGED DUE TO BEING WET FROM SPITTING. WILL CONTINUE TO OBSERVE.
--- NOTE | 2019-03-13 06:54 | NUR ---
PHARMACY MADE AWARE OF SHORTAGE [facility]ODRINE. HAS NOT FILLED AT THIS TIME. WILL CONTINUE TO OBSERVE.
--- NOTE | 2019-03-13 07:00 | NUR ---
SHIFT ASSESSMENT COMPLETED, PT CARE ASSUMED, MONITORS ON AND WORKING, VITALS STABLE. PT AWAKE AND ALERT, NO SIGNS/SYMPTOMS OF PAIN OR DISCOMFORT AT THIS TIME, CALL LIGHT WITHIN REACH, SEE FLOW SHEET FOR FURTHER DETIALS WILL CONTINUE TO OBSERVE.
--- NOTE | 2019-03-13 09:00 | NUR ---
PT SITTING UP IN BED, AWAKE AND ALERT, MONITORS ON AND WORKING, VITALS STABLE, CALL LIGHT WITHIN REACH, REC'D ORDERS TO TRANSFER PT TO FLOOR WHEN ROOM BECOMES AVAILABLE. WILL CONTINUE TO OBSERVE.
--- NOTE | 2019-03-13 10:56 | NUR ---
Nutrition Follow Up: Pt was asleep at the time of RD visit. Interview deferred. Chart reviewed. Diet: Renal PO Intake: 56% meal avg I<O + BM Wt stable Labs and meds reviewed Rec continue current diet. Rec consider an appetite stimulant. RD following.
--- NOTE | 2019-03-13 11:00 | NUR ---
NO CHNAGES, PT AWAKE AND ALERT, REC'D ORDERS TO DISCHARGE HOME, WILL TALK WITH CASE MANAGEMENT CONCERNING HOME HEALTH.
--- NOTE | 2019-03-13 13:00 | NUR ---
NO CHANGES PT SITTING UP IN BED, MONITORS ON AND WORKING, VITALS STABLE, CALL LIGHT WITHIN REACH WILL CONTINUE TO OBSERVE.
--- NOTE | 2019-03-13 15:00 | NUR ---
[facility] SET UP FOR PT ALONG WITH TRANSPORTATION TO HOME.
[2019-03-13 15:19] LABS: HEMATOCRIT 33.5 % (42.0-54.0); HEMOGLOBIN 10.8 g/dL (13.5-17.5)
--- NOTE | 2019-03-13 15:45 | MORECARE ---
CASE MANAGEMENT DISCHARGE SUMMARY PATIENT: HALLIE COE UNIT: [id number] ADM DATE: 03/06/19 AGE: 58 : 62 SEX: M ROOM/BED: D.2314 AUTHOR: ALDAIR,DOC PHYSICIAN: REFERRING PHYSICIAN: MATEO HOLLIS MD DATE OF SERVICE: 03/13/19 Discharge Plan Patient Name: HALLIE COE Facility: [facility]:[place] : 1960 Planned Disposition: Home with Home Health Anticipated Discharge Date: 03/10/19 Discharge Date: Expected LOS: 4 Initial Reviewer: [id number] Initial Review Date: 03/07/2019 Generated: 03/13/19 4:45 pm DCP- Discharge Planning Updated by [email or web address]: Kiel Goff on 03/10/19 10:[address] Patient Name: HALLIE COE Encounter No: [id number] : 1960 Primary Insurance: MEDICARE A & B Anticipated DC Date: 03-10-2019 Planned Disposition: Home with Home Health External Planned Provider: [facility] DCP follow-up note: CM RECEIVED CALL FROM MAGGIE LUIS OF [facility], , WHO INFORMED CM THAT HE WILL COME AND SEE PT IN HOSPITAL TODAY. MR. LUIS ASKED FOR RECORDS TO BE FAXED; CM FAXED REQUESTED RECORDS TO [facility] AT [phone]. CM TO ARRANGE HOME HEALTH WITH [facility] WITH PHYSICIAN AGREEMENT AND ORDERS. PT'S PRIMARY CARE PHYSICIAN IS D[facility]AS GUTHRIE, [facility] IN [place]. Kiel Goff, CASE MADISON DCP- Discharge Planning Updated by [email or web address]: Kiel Goff on 03/09/19 4:[address] Patient Name: HALLIE COE Encounter No: [id number] : 1960 Primary Insurance: MEDICARE A & B Anticipated DC Date: 03-10-2019 Planned Disposition: Home with Home Health External Planned Provider: [facility] DCP follow-up note: CM RECEIVED FAX FROM [facility], PT GARBER SNOT MEET [facility] CRITERIA AND HAS BEEN DENIED [facility] PLACEMENT BY OFFICE OF [facility]. CM NOTIFIED PT IN ROOM. PT REPORTS SPEAKING TO HIS PRIMARY DOCTORS OFFICE TODAY AND THAT THEY RECOMMENDED TO PT THAT HE GO HOME WITH HOME HEALTH. PT IS AGREEABLE TO PLAN AND HAS SIGNED CONSENT FOR [facility] WITH CM PREVIOUSLY PT ALSO REPORTS HAVING SPOKEN TO MEDICAID OFFICE TODAY, THEY ARE MAILING HIM PAPERS TO HIS HOME TO COMPLETE AND PT HAS BEEN INSTRUCTED TO COME TO [facility] OFFICE IN [place] IF HE NEEDS ASSISTANCE FILLING THEM OUT. CM SPOKE TO [facility] WORKER MAGGIE LUIS WHO VERIFIED CM'S REPORT OF NEGLECT HAS BEEN RECEIVED AND THEY WILL BE FOLLOWING UP WITH PT AT HOME IF NECESSARY, ONCE THE REPORT IS ASSIGNED TO A WORKER. PT IS IN AGREEMENT WITH GOING HOME WITH HOME HEALTH. CM TO ARRANGE HOME HEALTH WITH [facility] WITH PHYSICIAN AGREEMENT AND ORDERS. PT'S PRIMARY CARE PHYSICIAN IS D[place]AS GUTHRIE, [facility] IN [place]. Kiel Goff, CASE MANAGEMENT Appended by Kiel Goff on 03/09/2019 17:14 CDT: CM SPOKE TO DR. HOLLIS WHO INFORMED CM THAT PT WILL DISCHARGE HOME TOMORROW. CM SPOKE TO PT IN ROOM AND DISCUSSED DISCHARGE HOME. PT REPORTS HE HAS NO RIDE HOME AND HIS MOTHER HAD MAJOR SURGERY AND IS NOT AVAILABLE. CM DISCUSSED FAMILY, FRIENDS, OTHER FAMILY MEMBERS FRIENDS OR OTHER SUPPORT SYSTEM PERSONS THAT MAY ASSIST. PT STATES HE HAS NO WAY TO DIALYSIS AND MIGHT WELL GO ON HOSPICE AND "KILL MYSELF." PT STATES "LOOK AT ME, I CAN'T TAKE CARE OF MYSELF, CAN'T TAKE MY MEDICATIONS AND CAN'T EVEN EAT." PT STATES "HOSPICE WILL TAKE ME OFF DIALYSIS... AT LEAST THEY WILL TAKE CARE OF ME." CM AGREED THAT IF PT AGREED TO HOSPICE AND HE STOPPED DIALYSIS, HE WOULD . CM INFORMED PT THAT CM DID CALL [facility] TRANSPORT IN [facility] AND THEY WILL NOT TRANSPORT HIM TO DIALYSIS, EVEN FOR [place], AND WILL ONLY TRANSPORT IF PT HAS MEDICAID. PT STATES HE COULD DRIVE HIMSELF BUT "THAT WOULD NOT BE SAFE." CM EXPLAINED THAT PT WILL NEED TO CALL THE PEOPLE IN HIS PERSONAL SUPPORT SYSTEM AND ASK FOR HELP IF HIS PARENTS ARE NOT ABLE TO DO IT. PT STATES THAT HE WILL TRY TO CALL AND FIND A RIDE HOME AND TO DIALYSIS. CM DISCUSSED COMPLETING MEDICAID APPLICATION SOON POSSIBLE DISCUSSED EARLIER TODAY. PT STATES THAT ALL HE GETS IS A RUN AROUND FROM THE MEDICAID PEOPLE AND THAT HIS PRIMARY DOCTOR HAS A MATERIAL ENGINEER THAT HAS PROMISED TO LOOK FOR HELP FOR PT BUT HAS NOT COME THROUGH WITH ANYTHING YET. CM POINTED OUT THAT DEPARTMENT OF HUMAN SERIVCES HAS OFFERED TO ASSIST PT WITH FILLING OUT THE APPLICATION. PT DID NOT RESPOND. CM ENCOURAGED PT TO FILL OUT THE APPLICATION REQUESTED, WORK WITH HIS PRIMARY DOCTOR AND MATERIAL ENGINEER TO WORK OUT THESE PROBLEMS. PT LOOKED AT THE CLOCK AND STATED "IT'S FIVE O'CLOCK, IT'S TOO LATE TO CALL ANYONE FOR A RIDE." CM INFORMED PT THAT HE WILL BE DISCHARGED TOMORROW AND HE WOULD BE MORE LIKELY TO FIND SOMEONE TO ASSIST IF HE CALLED NOW WITH ADVANCE NOTICE. PT DID NOT RESPOND. CM PROVIDED AND EXPLAINED IMPORTANT MESSAGE FROM MEDICARE. PT STATES HE STILL WANTS HOME HEALTH WITH [facility]. CM DISCUSSED STATEMENTS PT MADE WITH BEDSIDE NURSE WHO WAS IN THE ROOM DURING SOME OF THE CONVERSATION. BEDSIDE NURSE WILL NOTIFY HISTORY DEPARTMENT CHAIR OF PT'S SUICIDAL STATEMENT. PT'S NURSE CALL LIGHT CAME ON, CM REPONDED, PT TOLD CM THAT HE NURSE DID NOT COME BACK WITH HIS MEDICATIONS. CM TO ARRANGE HOME HEALTH WITH [facility] WITH PHYSICIAN AGREEMENT AND ORDERS. PT'S PRIMARY CARE PHYSICIAN IS DALLAS GUTHRIE, [facility] IN [place]. Kiel Goff, CASE MANAGEMENT DCP- Discharge Planning Updated by [email or web address]: Kiel Goff on 03/08/19 3:[address] Patient Name: HALLIE COE Encounter No: [id number] : 1960 Primary Insurance: MEDICARE A & B Anticipated DC Date: Planned Disposition: Retirement Facility External Planned Provider: [facility] IN [place], MEDICARE REHAB BED DISCHARGE PLANNING NOTE: CM MET WITH PT IN ROOM TO COMPLETE BJORN SCREENING FORM. BJORN COMPLETED, PT SIGNED. PT REPORTS HE IS NOT SURE NOW IF HE WANTS TO GO TO [facility] AT DISCHARGE AND STATES HE MAY JUST GO BACK HOME WITH HOME HEALTH. CM ASKED ABOUT THE NEGLECTFUL CARE PT REPORTED YESTERDAY, BRING LOCKED IN ROOM WITH NO FOOD OR WATER. PT STATES THAT HE IS SAFE AT HOME WITH HIS PARENTS AND JUST NEEDS TO FIND A WAY TO GET ASSISTANCE AT HOME TO "TAKE THE PRESSURE OFF OF THEM". PT HAS TALKED TO MEDICAID OFFICE VIA PHONE TODAY AND THEY ARE SENDING HIM INFORMATION REGARDING HIS "QMB" MEDICAID. PT STATES IF HE GOES HOME WITH HOME HEALTH, HE WANTS [facility] FOR PHYSICAL THERAPY AND ADMINISTRATIVE ASSISTANT OFFICE MANAGER TO ASSIST WITH BATHING. CHOICE SIGNED. CM PROVIDED PT WITH HOME HEALTH LISTING AND EXPLAINED HOW TO ACCESS MEDICARE REVIEW INFORMATION FOR PROVIDERS. PT WOULD LIKE CM TO CONTINUE WITH LOOKING FOR [facility], BUT FOR REHAB SERVICES. CM FAXED REFERRALS TO [facility], [facility] AND [facility] IN [place]. [facility] REFERRAL MADE 03-07-19 FOR ALLEGATIONS OF NEGLECT. . CM WAITING PHYSICIAN SIGNATURES ON BJORN SCREENING AND WILL FAX TO [facility] ONCE PHYSICIAN SIGNATURE HAS BEEN OBTAINED. Kiel Goff, CASE MANAGEMENT Appended by Kiel Goff on 03/08/2019 16:06 CDT: CM RECEIVED CALL FROM [facility], WHO INFORMED CM THAT THEY CANNOT MEET PT'S NEEDS. MARTY OF [facility] AND [facility] MET WITH PT IN ROOM FOR ASSESSMENT THIS AFTERNOON. CM NOTIFIED MAYKEL STROUD THAT SIGNATURE ON BJORN ASSESSMENT IS NEEDED. CM WAITING ADMISSION DETERMINATIONS FROM [facility], [facility] AND [facility] IN [place]. [facility] REFERRAL MADE 03-07-19 FOR ALLEGATIONS OF NEGLECT. . CM WAITING PHYSICIAN SIGNATURES ON BJORN SCREENING AND WILL FAX TO [facility] ONCE PHYSICIAN SIGNATURE HAS BEEN OBTAINED. Kiel Goff CASE MANAGEMENT Appended by Kiel Goff on 03/08/2019 16:59 CDT: CM OBTAINED PHYSICIAN SIGNATURES ON BJORN SCREENING AND FAXED TO [facility]. CM WAITING BJORN SCREENING DETERMINATION WELL ADMISSION DETERMINATIONS FROM [facility], [facility] AND [facility] AND [facility] IN [place]. [facility] REFERRAL MADE 03-07-19 FOR ALLEGATIONS OF NEGLECT. . Kiel Goff, SUNITHA MANAGEMENT DCP- Discharge Planning Updated by [id number]: Kiel Goff on 03/07/19 3:[address] Patient Name: HALLIE COE Encounter No: [id number] : 1960 Primary Insurance: MEDICARE A & B Anticipated DC Date: Planned Disposition: Retirement Facility External Planned Provider: FIRST ACCEPTING FACILITY IN [place], MEDICARE REHAB BED DISCHARGE PLANNING NOTE: CM RECEIVED ORDER FOR "[facility]IC[facility]". CM MET WITH PT IN ROOM TO DISCUSS DISCHARGE PLANNING AND NEEDS. PT REPORTS LIVING AT HOME DEPENDENTLY WITH HIS MOTHER AND STEP FATHER. PT REPORTS INDEPENDENCE IN MEDICATION MANAGEMENT AND TOILETING. PT STATES HE WAS UNABLE TO FEED HIMSELF; CM ASKED FOR CLAIFICATION, PT STATES THAT HIS PARENTS HAD LOCKED HIM IN HIS ROOM AND WOULD NOT GIVE HIM ANY FOOD OR WATER. PT STATES HE IS NOT ABLE TO COOK FOR HIMSELF AND HIS MOTHER WOULD NOT COOK FOR HIM OR BRING HIM FOOD OR WATER AND EXPECTED HIM TO GET UP AND DO IT HIMSELF. PT STATES HE HAD NO BATH FOR 6 WEEKS BECAUSE HE IS NOT ABLE AND HIS PARENTS WILL NOT HELP HIM. PT HAS SHOWER CHAIR, ROLLING WALKER WITH SEAT AND BRAKES, NEBLUIZER AND HOME AND PORTABLE OXYGEN FROM [facility] OUT OF [facility]. PT HAS NO OUTSIDE SERVICES ASSISTING IN THE HOME. PT DEPENDS ON HIS MOTHER FOR TRANSPORT TO AND FROM OUTPATIENT DIALYSIS IN [place] ON [address] SCHEDULE. CM DISCUSSED AVAILABILITY OF HOME HEALTH, REHAB SERVICES AND MEDICAL EQUIPMENT. PT STATES HE CANNOT TAKE CARE OF HIMSELF AND WANTS [facility] PLACEMENT IN [place], NO FACILITY PREFERENCE, SO HE CAN BE CLOSE TO HOME AND MAYBE BE ABLE TO VISIT HER ONCE IN A WHILE. PT REPORTS BEING HIV POSITIVE FOR 30 PLUS YEARS AND HIS MEDICATIONS COSTS OVER $3000 PER MONTH AND HE GETS HIS EXPENSIVE MEDICATIONS FROM [employer]. 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 PT REPORTS HE HAD [employer] PRIVATE OPTION BUT WAS DROPPED WHEN HE BECAME MEDICARE ELIGIBLE AND HAS TO REAPPLY FOR MEDICAID. PT REPORTS HAVING BIPOLAR AND MAJOR DEPRESSIVE DISORDER. CM EXPLAINED THAT CM WILL NEED TO COMPLETE BJORN SCREENING WITH PT'S ASSISTANCE. CM ALSO EXPLAINED THAT CM WILL BE CALLING ADULT PROTECTIVE SERVICES WITH PT'S ALLEGATION OF NEGLECT BY HIS PARENTS. CM EXPLAINED THAT PT'S MEDICATIONS MAY BE TOO EXPENSIVE TO ENTER DETENTION FACILITY; PT STATES IF THAT IS A PROBLEM HE COULD JUST NOT TAKE THE EXPENSIVE HIV MEDICATIONS. CM EXPLAINED PLACEMENT PROCESS AND BJORN SCREENING PROCESS. CM PROVIDED CHOICE LISTING FOR NURSING HOMES, PT SIGNED CHOICE FOR ANY IN [place]. CM CALLED ADULT PROTECTIVE SERVICES, , PROVIDED REFERRAL FOR ALLEGATIONS OF NEGLECT. . CM TO COMPLETE BJORN SCREENING AND SEND REFERRALS TO ALL USP'S IN [place] FOR SKILLED AND OPEN CLAIMS REPRESENTATIVE CARE PLACEMENT CONSIDERATION SOON POSSIBLE. Kiel Goff, CASE MANAGEMENT DCPIA - Discharge Planning Initial Assessment Updated by [id number]: Kiel Goff on 03/07/19 4:26 pm * Is the patient Alert and Oriented? Yes * How many steps to enter\\exit or inside your home? * PCP D[facility] GUTHRIE, [facility] IN [place] * Pharmacy [facility] - HIV MEDICATIONS * Preadmission Environment Home with Family * ADLs Partial Dependent * Partial ADLs (Assistance needed) Bathing * Equipment Nebulizer Oxygen Rolling Walker Shower Chair * Other Equipment HOME AND PORTABLE OXYGEN [facility] - MEDICAL EQUIPMENT PROVIDER * List name and contact numbers for known caregivers / representatives who currently or will assist patient after discharge: MARISOL LEWIS, MOTHER, * Verbal permission to speak to the caregivers and representatives has been obtained from the patient. No * Community resources currently utilized Other * Please name any agencies selected above. OUTPATIENT DIALYSIS, [facility], [facility], [address], FAMILY TRANSPORTS * Additional services required to return to the preadmission environment? Yes * Can the patient safely return to the preadmission environment? No * Has this patient been hospitalized within the prior 30 days at any hospital? No External Providers External Provider: OTHER-OTHER Next Contact Date: Service Request Date: Service Type: Resolution: Reviewer: Comments: Coverage Notice Reviewer: [id number] Goff Notice Issued Date-Time: 03/07/2019 16:10 Notice Type: Patient Choice Letter Notice Delivered To: Patient Relationship to Patient: Industrial Engineering Manager Name: Delivery Method: HAND - Hand Delivered Gunjan Days: Prior Verbal Notification: Recipient Understood Notice: Yes Recipient Signature: Yes Med Rec Note Co-signed by Attending: Coverage Notice Comment: ANY NURSING FACILITY IN [place] Reviewer: [id number] Goff Notice Issued Date-Time: 03/08/2019 9:25 Notice Type: Patient Choice Letter Notice Delivered To: Patient Relationship to Patient: Industrial Engineering Manager Name: Delivery Method: HAND - Hand Delivered Gunjan Days: Prior Verbal Notification: Recipient Understood Notice: Yes Recipient Signature: Yes Med Rec Note Co-signed by Attending: Coverage Notice Comment: [facility] Reviewer: [id number] Goff Notice Issued Date-Time: 03/09/2019 17:00 Notice Type: IM Discharge Notice Notice Delivered To: Patient Relationship to Patient: Industrial Engineering Manager Name: Delivery Method: HAND - Hand Delivered Gunjan Days: Prior Verbal Notification: Recipient Understood Notice: Yes Recipient Signature: Yes Med Rec Note Co-signed by Attending: Coverage Notice Comment: Last DP export: 5/10/19 10:48 a Patient Name: HALLIE COE Page [phone] at 1545 All edits/amendments must be made on the electronic document DICTATION DATE: 03/13/191544 CAP INSPECTOR: EDU 03/13/191544 RPT#: [id number] DC DATE: STATUS: ADM IN [facility] [address] [place] [address] END OF REPORT
--- NOTE | 2019-03-13 16:18 | MORECARE ---
CASE MANAGEMENT DISCHARGE SUMMARY PATIENT: HALLIE COE UNIT: [id number] ADM DATE: 03/06/19 AGE: 58 : 62 SEX: M ROOM/BED: D.2314 AUTHOR: ALDAIR,DOC PHYSICIAN: REFERRING PHYSICIAN: MATEO HOLLIS MD DATE OF SERVICE: 03/13/19 Discharge Plan Patient Name: HALLIE COE Facility: [facility]:[place] : 1960 Planned Disposition: Home with Home Health Anticipated Discharge Date: 03/10/19 Discharge Date: Expected LOS: 4 Initial Reviewer: [id number] Initial Review Date: 03/07/2019 Generated: 03/13/19 5:17 pm Comments DCP- Discharge Planning Updated by [id number]: Ny Gutiérrez on 03/13/19 3:[address] CM notified that APS didn't place a hold on patient or plan on taking him into their custody. APS will follow up with patient at home. CM contacted [facility] in [place] [phone] fax [phone] spoke with Amisha and faxed records. Explained that patient is dialysis patient in [facility] @ 11:00. Amisha stated that they would start care on Wednesday03/15/19. CM spoke with patient he stated he didn't have any transportation home. He stated his parents are elderly and can't drive this far. CM got approval for Taxi to [place] for $131.00 from Marva Ahmadi CM spring up supervisor. CM spoke with nursing informed them of discharge plan and to let CM know when ready to call Taxi. CM will continue to follow and assist with discharge planning/ needs DCP- Discharge Planning Updated by [id number]: Kiel Goff on 03/10/19 10:[address] Patient Name: HALLIE COE Encounter No: [id number] : 1960 Primary Insurance: MEDICARE A & B Anticipated DC Date: 03-10-2019 Planned Disposition: Home with Home Health External Planned Provider: [facility] DCP follow-up note: CM RECEIVED CALL FROM MAGGIE LUIS OF [facility], , WHO INFORMED CM THAT HE WILL COME AND SEE PT IN HOSPITAL TODAY. MR. LUIS ASKED FOR RECORDS TO BE FAXED; CM FAXED REQUESTED RECORDS TO [facility] AT [phone]. CM TO ARRANGE HOME HEALTH WITH [facility] WITH PHYSICIAN AGREEMENT AND ORDERS. PT'S PRIMARY CARE PHYSICIAN IS DALLAS GUTHRIE, [facility] IN [place]. Kiel Goff, CASE MANAGEMENT DCP- Discharge Planning Updated by [id number]: Kiel Goff on 03/09/19 4:[address] Patient Name: HALLIE COE Encounter No: [id number] : 1960 Primary Insurance: MEDICARE A & B Anticipated DC Date: 03-10-2019 Planned Disposition: Home with Home Health External Planned Provider: [facility] DCP follow-up note: CM RECEIVED FAX FROM [facility], PT GARBER FABRICE MEET INTERMEDIATE CRITERIA AND HAS BEEN DENIED INTERMEDIATE PLACEMENT BY OFFICE OF GASKET NOTCHER CARE. CM NOTIFIED PT IN ROOM. PT REPORTS SPEAKING TO HIS PRIMARY DOCTORS OFFICE TODAY AND THAT THEY RECOMMENDED TO PT THAT HE GO HOME WITH HOME HEALTH. PT IS AGREEABLE TO PLAN AND HAS SIGNED CONSENT FOR [facility] WITH CM PREVIOUSLY PT ALSO REPORTS HAVING SPOKEN TO MEDICAID OFFICE TODAY, THEY ARE MAILING HIM PAPERS TO HIS HOME TO COMPLETE AND PT HAS BEEN INSTRUCTED TO COME TO [facility] OFFICE IN [place] IF HE NEEDS ASSISTANCE FILLING THEM OUT. CM SPOKE TO [facility]ULT [facility] WORKER MAGGIE LUIS WHO VERIFIED CM'S REPORT OF NEGLECT HAS BEEN RECEIVED AND THEY WILL BE FOLLOWING UP WITH PT AT HOME IF NECESSARY, ONCE THE REPORT IS ASSIGNED TO A WORKER. PT IS IN AGREEMENT WITH GOING HOME WITH HOME HEALTH. CM TO ARRANGE HOME HEALTH WITH [facility] WITH PHYSICIAN AGREEMENT AND ORDERS. PT'S PRIMARY CARE PHYSICIAN IS DALLAS GUTHRIE, [facility] IN [place]. Kiel Goff, CASE MANAGEMENT Appended by Kiel Goff on 03/09/2019 17:14 CDT: CM SPOKE TO DR. HOLLIS WHO INFORMED CM THAT PT WILL DISCHARGE HOME TOMORROW. CM SPOKE TO PT IN ROOM AND DISCUSSED DISCHARGE HOME. PT REPORTS HE HAS NO RIDE HOME AND HIS MOTHER HAD MAJOR SURGERY AND IS NOT AVAILABLE. CM DISCUSSED FAMILY, FRIENDS, OTHER FAMILY MEMBERS FRIENDS OR OTHER SUPPORT SYSTEM PERSONS THAT MAY ASSIST. PT STATES HE HAS NO WAY TO DIALYSIS AND MIGHT WELL GO ON HOSPICE AND "KILL MYSELF." PT STATES "LOOK AT ME, I CAN'T TAKE CARE OF MYSELF, CAN'T TAKE MY MEDICATIONS AND CAN'T EVEN EAT." PT STATES "HOSPICE WILL TAKE ME OFF DIALYSIS... AT LEAST THEY WILL TAKE CARE OF ME." CM AGREED THAT IF PT AGREED TO HOSPICE AND HE STOPPED DIALYSIS, HE WOULD . CM INFORMED PT THAT CM DID CALL MEDICA[facility] TRANSPORT IN [facility] AND THEY WILL NOT TRANSPORT HIM TO DIALYSIS, EVEN FOR [place], AND WILL ONLY TRANSPORT IF PT HAS MEDICAID. PT STATES HE COULD DRIVE HIMSELF BUT "THAT WOULD NOT BE SAFE." CM EXPLAINED THAT PT WILL NEED TO CALL THE PEOPLE IN HIS PERSONAL SUPPORT SYSTEM AND ASK FOR HELP IF HIS PARENTS ARE NOT ABLE TO DO IT. PT STATES THAT HE WILL TRY TO CALL AND FIND A RIDE HOME AND TO DIALYSIS. CM DISCUSSED COMPLETING MEDICAID APPLICATION SOON POSSIBLE DISCUSSED EARLIER TODAY. PT STATES THAT ALL HE GETS IS A RUN AROUND FROM THE MEDICAID PEOPLE AND THAT HIS PRIMARY DOCTOR HAS A EVS TECH THAT HAS PROMISED TO LOOK FOR HELP FOR PT BUT HAS NOT COME THROUGH WITH ANYTHING YET. CM POINTED OUT THAT [facility] HAS OFFERED TO ASSIST PT WITH FILLING OUT THE APPLICATION. PT DID NOT RESPOND. CM ENCOURAGED PT TO FILL OUT THE APPLICATION REQUESTED, WORK WITH HIS PRIMARY DOCTOR AND EVS TECH TO WORK OUT THESE PROBLEMS. PT LOOKED AT THE CLOCK AND STATED "IT'S FIVE O'CLOCK, IT'S TOO LATE TO CALL ANYONE FOR A RIDE." CM INFORMED PT THAT HE WILL BE DISCHARGED TOMORROW AND HE WOULD BE MORE LIKELY TO FIND SOMEONE TO ASSIST IF HE CALLED NOW WITH ADVANCE NOTICE. PT DID NOT RESPOND. CM PROVIDED AND EXPLAINED IMPORTANT MESSAGE FROM MEDICARE. PT STATES HE STILL WANTS HOME HEALTH WITH [facility]. CM DISCUSSED STATEMENTS PT MADE WITH BEDSIDE NURSE WHO WAS IN THE ROOM DURING SOME OF THE CONVERSATION. BEDSIDE NURSE WILL NOTIFY STRADDLE CARRIER OPERATOR OF PT'S SUICIDAL STATEMENT. PT'S NURSE CALL LIGHT CAME ON, CM REPONDED, PT TOLD CM THAT HE NURSE DID NOT COME BACK WITH HIS MEDICATIONS. CM TO ARRANGE HOME HEALTH WITH [facility] WITH PHYSICIAN AGREEMENT AND ORDERS. PT'S PRIMARY CARE PHYSICIAN IS DALLAS GUTHRIE, [facility] IN [place]. Kiel Goff, CASE MANAGEMENT DCP- Discharge Planning Updated by [id number]: Kiel Goff on 03/08/19 3:[address] Patient Name: HALLIE COE Encounter No: [id number] : 1960 Primary Insurance: MEDICARE A & B Anticipated DC Date: Planned Disposition: Group Home Facility External Planned Provider: FIRST ACCEPTING FACILITY IN [place], MEDICARE REHAB BED DISCHARGE PLANNING NOTE: CM MET WITH PT IN ROOM TO COMPLETE BJORN SCREENING FORM. [facility]JORN COMPLETED, PT SIGNED. PT REPORTS HE IS NOT SURE NOW IF HE WANTS TO GO TO INTERMEDIATE AT DISCHARGE AND STATES HE MAY JUST GO BACK HOME WITH HOME HEALTH. CM ASKED ABOUT THE NEGLECTFUL CARE PT REPORTED YESTERDAY, BRING LOCKED IN ROOM WITH NO FOOD OR WATER. PT STATES THAT HE IS SAFE AT HOME WITH HIS PARENTS AND JUST NEEDS TO FIND A WAY TO GET ASSISTANCE AT HOME TO "TAKE THE PRESSURE OFF OF THEM". PT HAS TALKED TO MEDICAID OFFICE VIA PHONE TODAY AND THEY ARE SENDING HIM INFORMATION REGARDING HIS "QMB" MEDICAID. PT STATES IF HE GOES HOME WITH HOME HEALTH, HE WANTS [facility] FOR PHYSICAL THERAPY AND BALING MACHINE TENDER TO ASSIST WITH BATHING. CHOICE SIGNED. CM PROVIDED PT WITH HOME HEALTH LISTING AND EXPLAINED HOW TO ACCESS MEDICARE REVIEW INFORMATION FOR PROVIDERS. PT WOULD LIKE CM TO CONTINUE WITH LOOKING FOR INTERMEDIATE, BUT FOR REHAB SERVICES. CM FAXED REFERRALS TO [facility], [facility] AND [facility]. ADULT [facility] REFERRAL MADE 03-07-19 FOR ALLEGATIONS OF NEGLECT. . CM WAITING PHYSICIAN SIGNATURES ON BJ[facility] SCREENING AND WILL FAX TO [facility] ONCE PHYSICIAN SIGNATURE HAS BEEN OBTAINED. Kiel Goff, CASE MANAGEMENT Appended by Kiel Goff on 03/08/2019 16:06 CDT: CM RECEIVED CALL FROM [facility], WHO INFORMED CM THAT THEY CANNOT MEET PT'S NEEDS. MARTY OF [facility] AND [facility] MET WITH PT IN ROOM FOR ASSESSMENT THIS AFTERNOON. CM NOTIFIED MAYKEL STROUD THAT SIGNATURE ON BJORN ASSESSMENT IS NEEDED. CM WAITING ADMISSION DETERMINATIONS FROM [facility], [facility] AND [facility] AND [facility]. ADULT [facility] REFERRAL MADE 03-07-19 FOR ALLEGATIONS OF NEGLECT. . CM WAITING PHYSICIAN SIGNATURES ON BJORN SCREENING AND WILL FAX TO [facility] ONCE PHYSICIAN SIGNATURE HAS BEEN OBTAINED. Kiel Goff, CASE MANAGEMENT Appended by Kiel Goff on 03/08/2019 16:59 CDT: CM OBTAINED PHYSICIAN SIGNATURES ON BJORN SCREENING AND FAXED TO [facility]. CM WAITING BJORN SCREENING DETERMINATION WELL ADMISSION DETERMINATIONS FROM [facility], [facility] AND [facility] IN [place] ADULT PROT[facility]IVE SERVICES REFERRAL MADE 03-07-19 FOR ALLEGATIONS OF NEGLECT. . Kiel Goff, CASE MANAGEMENT DCP- Discharge Planning Updated by [id number]: Kiel Goff on 03/07/19 3:[address] Patient Name: HALLIE COE Encounter No: [id number] : 1960 Primary Insurance: MEDICARE A & B Anticipated DC Date: Planned Disposition: Group Home Facility External Planned Provider: FIRST ACCEPTING FACILITY IN [place], MEDICARE REHAB BED DISCHARGE PLANNING NOTE: CM RECEIVED ORDER FOR "INTERMEDIATE BASICALLY". CM MET WITH PT IN ROOM TO DISCUSS DISCHARGE PLANNING AND NEEDS. PT REPORTS LIVING AT HOME DEPENDENTLY WITH HIS MOTHER AND STEP FATHER. PT REPORTS INDEPENDENCE IN MEDICATION MANAGEMENT AND TOILETING. PT STATES HE WAS UNABLE TO FEED HIMSELF; CM ASKED FOR CLAIFICATION, PT STATES THAT HIS PARENTS HAD LOCKED HIM IN HIS ROOM AND WOULD NOT GIVE HIM ANY FOOD OR WATER. PT STATES HE IS NOT ABLE TO COOK FOR HIMSELF AND HIS MOTHER WOULD NOT COOK FOR HIM OR BRING HIM FOOD OR WATER AND EXPECTED HIM TO GET UP AND DO IT HIMSELF. PT STATES HE HAD NO BATH FOR 6 WEEKS BECAUSE HE IS NOT ABLE AND HIS PARENTS WILL NOT HELP HIM. PT HAS SHOWER CHAIR, ROLLING WALKER WITH SEAT AND BRAKES, NEBLUIZER AND HOME AND PORTABLE OXYGEN FROM [facility] [place] [facility] OF [facility]. PT HAS NO OUTSIDE SERVICES ASSISTING IN THE HOME. PT DEPENDS ON HIS MOTHER FOR TRANSPORT TO AND FROM OUTPATIENT DIALYSIS IN [place] ON [address] SCHEDULE. CM DISCUSSED AVAILABILITY OF HOME HEALTH, REHAB SERVICES AND MEDICAL EQUIPMENT. PT STATES HE CANNOT TAKE CARE OF HIMSELF AND WANTS INTERMEDIATE PLACEMENT IN [place], NO FACILITY PREFERENCE, SO HE CAN BE CLOSE TO HOME AND MAYBE BE ABLE TO VISIT HER ONCE IN A WHILE. PT REPORTS BEING HIV POSITIVE FOR 30 PLUS YEARS AND HIS MEDICATIONS COSTS OVER $3000 PER MONTH AND HE GETS HIS EXPENSIVE MEDICATIONS FROM [facility]. 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 PT REPORTS HE HAD [employer] PRIVATE OPTION BUT WAS DROPPED WHEN HE BECAME MEDICARE ELIGIBLE AND HAS TO REAPPLY FOR MEDICAID. PT REPORTS HAVING BIPOLAR AND MAJOR DEPRESSIVE DISORDER. CM EXPLAINED THAT CM WILL NEED TO COMPLETE BJORN SCREENING WITH PT'S ASSISTANCE. CM ALSO EXPLAINED THAT CM WILL BE CALLING ADULT PROTECTIVE SERVICES WITH PT'S ALLEGATION OF NEGLECT BY HIS PARENTS. CM EXPLAINED THAT PT'S MEDICATIONS MAY BE TOO EXPENSIVE TO ENTER JAIL FACILITY; PT STATES IF THAT IS A PROBLEM HE COULD JUST NOT TAKE THE EXPENSIVE HIV MEDICATIONS. CM EXPLAINED PLACEMENT PROCESS AND BJORN SCREENING PROCESS. CM PROVIDED CHOICE LISTING FOR NURSING HOMES, PT SIGNED CHOICE FOR ANY IN [place]. CM CALLED ADULT PROTECTIVE SERVICES, , PROVIDED REFERRAL FOR ALLEGATIONS OF NEGLECT. . CM TO COMPLETE BJORN SCREENING AND SEND REFERRALS TO ALL INTERMEDIATE'S IN [place] FOR SKILLED AND RETIREMENT CARE PLACEMENT CONSIDERATION SOON POSSIBLE. Kiel Goff, CASE MANAGEMENT DCPIA - Discharge Planning Initial Assessment Updated by CHAYO: Kiel Goff on 03/07/19 4:26 pm * Is the patient Alert and Oriented? Yes * How many steps to enter\\exit or inside your home? * PCP DALLAS GUTHRIE, [facility] [place] * Pharmacy [facility] IN [facility] - HIV MEDICATIONS * Preadmission Environment Home with Family * ADLs Partial Dependent * Partial ADLs (Assistance needed) Bathing * Equipment Nebulizer Oxygen Rolling Walker Shower Chair * Other Equipment HOME AND PORTABLE OXYGEN [facility] - MEDICAL EQUIPMENT PROVIDER * List name and contact numbers for known caregivers / representatives who currently or will assist patient after discharge: MARISOL LEWIS, MOTHER, * Verbal permission to speak to the caregivers and representatives has been obtained from the patient. No * Community resources currently utilized Other * Please name any agencies selected above. OUTPATIENT DIALYSIS, [facility], [facility], [address], FAMILY TRANSPORTS * Additional services required to return to the preadmission environment? Yes * Can the patient safely return to the preadmission environment? No * Has this patient been hospitalized within the prior 30 days at any hospital? No Coverage Notice Reviewer: [id number] - Kiel Goff Notice Issued Date-Time: 03/08/2019 9:25 Notice Type: Patient Choice Letter Notice Delivered To: Patient Relationship to Patient: Pulping Machine Operator Name: Delivery Method: HAND - Hand Delivered Gunjan Days: Prior Verbal Notification: Recipient Understood Notice: Yes Recipient Signature: Yes Med Rec Note Co-signed by Attending: Coverage Notice Comment: [facility] Reviewer: [id number] Sam Goff Notice Issued Date-Time: 03/07/2019 16:10 Notice Type: Patient Choice Letter Notice Delivered To: Patient Relationship to Patient: Pulping Machine Operator Name: Delivery Method: HAND - Hand Delivered Gunjan Days: Prior Verbal Notification: Recipient Understood Notice: Yes Recipient Signature: Yes Med Rec Note Co-signed by Attending: Coverage Notice Comment: ANY NURSING FACILITY IN [place] Reviewer: [id number] Sam Goff Notice Issued Date-Time: 03/09/2019 17:00 Notice Type: IM Discharge Notice Notice Delivered To: Patient Relationship to Patient: Pulping Machine Operator Name: Delivery Method: HAND - Hand Delivered Gunjan Days: Prior Verbal Notification: Recipient Understood Notice: Yes Recipient Signature: Yes Med Rec Note Co-signed by Attending: Coverage Notice Comment: Last DP export: 03/13/19 2:45 p Patient Name: HALLIE COE Page [id number] at 1618 All edits/amendments must be made on the electronic document DICTATION DATE: 03/13/191616 FREE LANCE MODEL: EDU 03/13/191616 RPT#: [id number] DC DATE: STATUS: ADM IN [facility] [address] [place] [address] END OF REPORT
--- NOTE | 2019-03-13 17:45 | NUR ---
IV D/C'D. PT DISCHARGED, ESCORTED TO FRONT ENTRANCE AND ASSISTED INTO [facility]AXI.
--- NOTE | 2019-03-14 15:04 | MORECARE ---
CASE MANAGEMENT DISCHARGE SUMMARY PATIENT: HALLIE COE UNIT: [id number] ADM DATE: 03/06/19 AGE: 58 : 62 SEX: M ROOM/BED: D.2314 AUTHOR: ALDAIR,DOC PHYSICIAN: REFERRING PHYSICIAN: MATEO HOLLIS MD DATE OF SERVICE: 03/14/19 Discharge Plan Patient Name: HALLIE COE Facility: [facility]:[place] : 1960 Planned Disposition: Home with Home Health Anticipated Discharge Date: 03/10/19 Discharge Date: 03/13/2019 Expected LOS: 4 Initial Reviewer: [id number] Initial Review Date: 03/07/2019 Generated: 03/14/19 4:04 pm Comments DCP- Discharge Planning Updated by [id number]: Ny Gutiérrez on 03/14/19 1:[address] Patient Name: HALLIE COE Encounter No: [id number] : 1960 Primary Insurance: MEDICARE A & B Anticipated DC Date: 03-10-2019 Planned Disposition: Home with Home Health External Planned Provider: : [facility] DCP follow-up note: Patient and family in agreement with discharge plan. No changes to plan. Case management will follow and assist as needed. Ny Gutiérrez DCP- Discharge Planning Updated by [id number]: Ny Gutiérrez on 03/13/19 3:[address] CM notified that APS didn't place a hold on patient or plan on taking him into their custody. APS will follow up with patient at home. CARRILLO contacted [facility] in [place] [phone] fax [phone] spoke with Amisha and faxed records. Explained that patient is [facility] @ 11:00. Amisha stated that they would start care on Wednesday03/15/19. CARRLILO spoke with patient he stated he didn't have any transportation home. He stated his parents are elderly and can't drive this far. CARRILLO got approval for Taxi to [employer] for $131.00 from Marva Ahmadi CM supervisor tumblers. CARRILLO spoke with nursing informed them of discharge plan and to let CM know when ready to call Taxi. CM will continue to follow and assist with discharge planning/ needs DCP- Discharge Planning Updated by [id number]: Kiel Goff on 03/10/19 10:[address] Patient Name: HALLIE COE Encounter No: [id number] : 1960 Primary Insurance: MEDICARE A & B Anticipated DC Date: 03-10-2019 Planned Disposition: Home with Home Health External Planned Provider: [facility] DCP follow-up note: CM RECEIVED CALL FROM MAGGIE LUIS OF [facility], , WHO INFORMED CM THAT HE WILL COME AND SEE PT IN HOSPITAL TODAY. MR. LUIS ASKED FOR RECORDS TO BE FAXED; CM FAXED REQUESTED RECORDS TO [facility] AT [phone]. CM TO ARRANGE HOME HEALTH WITH [facility] WITH PHYSICIAN AGREEMENT AND ORDERS. PT'S PRIMARY CARE PHYSICIAN IS D[facility]AS GUTHRIE, [facility] IN [place]. Kiel Goff, CASE MANAGEMENT DCP- Discharge Planning Updated by [id number]: Kiel Goff on 03/09/19 4:[address] Patient Name: HALLIE COE Encounter No: [id number] : 1960 Primary Insurance: MEDICARE A & B Anticipated DC Date: 03-10-2019 Planned Disposition: Home with Home Health External Planned Provider: [facility] DCP follow-up note: CM RECEIVED FAX FROM [facility], PT GARBER OT MEET [facility] CRITERIA AND HAS BEEN DENIED [facility]PC PLACEMENT BY OFFICE OF PRISON CARE. CM NOTIFIED PT IN ROOM. PT REPORTS SPEAKING TO HIS PRIMARY DOCTORS OFFICE TODAY AND THAT THEY RECOMMENDED TO PT THAT HE GO HOME WITH HOME HEALTH. PT IS AGREEABLE TO PLAN AND HAS SIGNED CONSENT FOR [facility] WITH CM PREVIOUSLY PT ALSO REPORTS HAVING SPOKEN TO MEDICAID OFFICE TODAY, THEY ARE MAILING HIM PAPERS TO HIS HOME TO COMPLETE AND PT HAS BEEN INSTRUCTED TO COME TO [facility] OFFICE IN [place] IF HE NEEDS ASSISTANCE FILLING THEM OUT. CM SPOKE TO [facility]ULT [facility] WORKER MAGGIE LUIS WHO VERIFIED CM'S REPORT OF NEGLECT HAS BEEN RECEIVED AND THEY WILL BE FOLLOWING UP WITH PT AT HOME IF NECESSARY, ONCE THE REPORT IS ASSIGNED TO A WORKER. PT IS IN AGREEMENT WITH GOING HOME WITH HOME HEALTH. CM TO ARRANGE HOME HEALTH WITH [facility] WITH PHYSICIAN AGREEMENT AND ORDERS. PT'S PRIMARY CARE PHYSICIAN IS DALLAS GUTHRIE, [facility] [place]. Kiel Goff, CASE MANAGEMENT Appended by Kiel Goff on 03/09/2019 17:14 CDT: CM SPOKE TO DR. HOLLIS WHO INFORMED CM THAT PT WILL DISCHARGE HOME TOMORROW. CM SPOKE TO PT IN ROOM AND DISCUSSED DISCHARGE HOME. PT REPORTS HE HAS NO RIDE HOME AND HIS MOTHER HAD MAJOR SURGERY AND IS NOT AVAILABLE. CM DISCUSSED FAMILY, FRIENDS, OTHER FAMILY MEMBERS FRIENDS OR OTHER SUPPORT SYSTEM PERSONS THAT MAY ASSIST. PT STATES HE HAS NO WAY TO DIALYSIS AND MIGHT WELL GO ON HOSPICE AND "KILL MYSELF." PT STATES "LOOK AT ME, I CAN'T TAKE CARE OF MYSELF, CAN'T TAKE MY MEDICATIONS AND CAN'T EVEN EAT." PT STATES "HOSPICE WILL TAKE ME OFF DIALYSIS... AT LEAST THEY WILL TAKE CARE OF ME." CM AGREED THAT IF PT AGREED TO HOSPICE AND HE STOPPED DIALYSIS, HE WOULD . CM INFORMED PT THAT CM DID CALL MEDICAID TRANSPORT IN [facility] AND THEY WILL NOT TRANSPORT HIM TO DIALYSIS, EVEN FOR [place], AND WILL ONLY TRANSPORT IF PT HAS MEDICAID. PT STATES HE COULD DRIVE HIMSELF BUT "THAT WOULD NOT BE SAFE." CM EXPLAINED THAT PT WILL NEED TO CALL THE PEOPLE IN HIS PERSONAL SUPPORT SYSTEM AND ASK FOR HELP IF HIS PARENTS ARE NOT ABLE TO DO IT. PT STATES THAT HE WILL TRY TO CALL AND FIND A RIDE HOME AND TO DIALYSIS. CM DISCUSSED COMPLETING MEDICAID APPLICATION SOON POSSIBLE DISCUSSED EARLIER TODAY. PT STATES THAT ALL HE GETS IS A RUN AROUND FROM THE MEDICAID PEOPLE AND THAT HIS PRIMARY DOCTOR HAS A PARI M[employer]UEL TICKET SELLER THAT HAS PROMISED TO LOOK FOR HELP FOR PT BUT HAS NOT COME THROUGH WITH ANYTHING YET. CM POINTED OUT THAT DEPARTMENT OF HUMAN SERIVCES HAS OFFERED TO ASSIST PT WITH FILLING OUT THE APPLICATION. PT DID NOT RESPOND. CM ENCOURAGED PT TO FILL OUT THE APPLICATION REQUESTED, WORK WITH HIS PRIMARY DOCTOR AND PARI MUTUEL TICKET SELLER TO WORK OUT THESE PROBLEMS. PT LOOKED AT THE CLOCK AND STATED "IT'S FIVE O'CLOCK, IT'S TOO LATE TO CALL ANYONE FOR A RIDE." CM INFORMED PT THAT HE WILL BE DISCHARGED TOMORROW AND HE WOULD BE MORE LIKELY TO FIND SOMEONE TO ASSIST IF HE CALLED NOW WITH ADVANCE NOTICE. PT DID NOT RESPOND. CM PROVIDED AND EXPLAINED IMPORTANT MESSAGE FROM MEDICARE. PT STATES HE STILL WANTS HOME HEALTH WITH [facility]. CM DISCUSSED STATEMENTS PT MADE WITH BEDSIDE NURSE WHO WAS IN THE ROOM DURING SOME OF THE CONVERSATION. BEDSIDE NURSE WILL NOTIFY [employer] JAVA DEVELOPER OF PT'S SUICIDAL STATEMENT. PT'S NURSE CALL LIGHT CAME ON, CM REPONDED, PT TOLD CM THAT HE NURSE DID NOT COME BACK WITH HIS MEDICATIONS. CM TO ARRANGE HOME HEALTH WITH [facility] WITH PHYSICIAN AGREEMENT AND ORDERS. PT'S PRIMARY CARE PHYSICIAN IS DALLAS GUTHRIE, [facility] IN [place]. Kiel Goff, CASE MANAGEMENT DCP- Discharge Planning Updated by [id number]: Kiel Goff on 03/08/19 3:[address] Patient Name: HALLIE COE Encounter No: [id number] : 1960 Primary Insurance: MEDICARE A & B Anticipated DC Date: Planned Disposition: [facility] Facility External Planned Provider: FIRST ACCEPTING FACILITY IN [place], MEDICARE REHAB BED DISCHARGE PLANNING NOTE: CM MET WITH PT IN ROOM TO COMPLETE BJORN SCREENING FORM. BJORN COMPLETED, PT SIGNED. PT REPORTS HE IS NOT SURE NOW IF HE WANTS TO GO TO FPC AT DISCHARGE AND STATES HE MAY JUST GO BACK HOME WITH HOME HEALTH. CM ASKED ABOUT THE NEGLECTFUL CARE PT REPORTED YESTERDAY, BRING LOCKED IN ROOM WITH NO FOOD OR WATER. PT STATES THAT HE IS SAFE AT HOME WITH HIS PARENTS AND JUST NEEDS TO FIND A WAY TO GET ASSISTANCE AT HOME TO "TAKE THE PRESSURE OFF OF THEM". PT HAS TALKED TO MEDICAID OFFICE VIA PHONE TODAY AND THEY ARE SENDING HIM INFORMATION REGARDING HIS "QMB" MEDICAID. PT STATES IF HE GOES HOME WITH HOME HEALTH, HE WANTS [facility] FOR PHYSICAL THERAPY AND FISH CONSERVATIONIST TO ASSIST WITH BATHING. CHOICE SIGNED. CM PROVIDED PT WITH HOME HEALTH LISTING AND EXPLAINED HOW TO ACCESS MEDICARE REVIEW INFORMATION FOR PROVIDERS. PT WOULD LIKE CM TO CONTINUE WITH LOOKING FOR FPC, BUT FOR REHAB SERVICES. CM FAXED REFERRALS TO [facility], [facility] AND [facility] IN [place]. [facility]ULT [facility] REFERRAL MADE 03-07-19 FOR ALLEGATIONS OF NEGLECT. . CARRILLO WAITING PHYSICIAN SIGNATURES ON BJORN SCREENING AND WILL FAX TO [facility] ONCE PHYSICIAN SIGNATURE HAS BEEN OBTAINED. Kiel Goff, CASE MANAGEMENT Appended by Kiel oGff on 03/08/2019 16:06 CDT: CM RECEIVED CALL FROM [facility], WHO INFORMED CM THAT THEY CANNOT MEET PT'S NEEDS. MARTY OF [facility] AND [facility] MET WITH PT IN ROOM FOR ASSESSMENT THIS AFTERNOON. CM NOTIFIED MAYKEL STROUD THAT SIGNATURE ON BJORN ASSESSMENT IS NEEDED. CM WAITING ADMISSION DETERMINATIONS FROM [facility], [facility] AND [facility] [place] AND [facility] IN [place]. ADULT [facility] SERVICES REFERRAL MADE 03-07-19 FOR ALLEGATIONS OF NEGLECT. . CM WAITING PHYSICIAN SIGNATURES ON BJORN SCREENING AND WILL FAX TO [facility] ONCE PHYSICIAN SIGNATURE HAS BEEN OBTAINED. Kiel Goff, CASE MANAGEMENT Appended by Kiel Goff on 03/08/2019 16:59 CDT: CM OBTAINED PHYSICIAN SIGNATURES ON BJORN SCREENING AND FAXED TO [facility]. CM WAITING BJORN SCREENING DETERMINATION WELL ADMISSION DETERMINATIONS FROM [facility], [facility] AND [facility] IN [place]. ADULT [facility] SERVICES REFERRAL MADE 03-07-19 FOR ALLEGATIONS OF NEGLECT. . Kiel Goff, CASE MANAGEMENT DCP- Discharge Planning Updated by [id number]: Kiel Goff on 03/07/19 3:[address] Patient Name: HALLIE COE Encounter No: [id number] : 1960 Primary Insurance: MEDICARE A & B Anticipated DC Date: Planned Disposition: [facility] Facility External Planned Provider: FIRST ACCEPTING FACILITY IN [place], MEDICARE REHAB BED DISCHARGE PLANNING NOTE: CM RECEIVED ORDER FOR "FPC BASICALLY". CM MET WITH PT IN ROOM TO DISCUSS DISCHARGE PLANNING AND NEEDS. PT REPORTS LIVING AT HOME DEPENDENTLY WITH HIS MOTHER AND STEP FATHER. PT REPORTS INDEPENDENCE IN MEDICATION MANAGEMENT AND TOILETING. PT STATES HE WAS UNABLE TO FEED HIMSELF; CM ASKED FOR CLAIFICATION, PT STATES THAT HIS PARENTS HAD LOCKED HIM IN HIS ROOM AND WOULD NOT GIVE HIM ANY FOOD OR WATER. PT STATES HE IS NOT ABLE TO COOK FOR HIMSELF AND HIS MOTHER WOULD NOT COOK FOR HIM OR BRING HIM FOOD OR WATER AND EXPECTED HIM TO GET UP AND DO IT HIMSELF. PT STATES HE HAD NO BATH FOR 6 WEEKS BECAUSE HE IS NOT ABLE AND HIS PARENTS WILL NOT HELP HIM. PT HAS SHOWER CHAIR, ROLLING WALKER WITH SEAT AND BRAKES, NEBLUIZER AND HOME AND PORTABLE OXYGEN FROM [facility] OUT OF [facility]. PT HAS NO OUTSIDE SERVICES ASSISTING IN THE HOME. PT DEPENDS ON HIS MOTHER FOR TRANSPORT TO AND FROM OUTPATIENT DIALYSIS IN [place] ON [address] SCHEDULE. CM DISCUSSED AVAILABILITY OF HOME HEALTH, REHAB SERVICES AND MEDICAL EQUIPMENT. PT STATES HE CANNOT TAKE CARE OF HIMSELF AND WANTS FPC PLACEMENT IN [place], NO FACILITY PREFERENCE, SO HE CAN BE CLOSE TO HOME AND MAYBE BE ABLE TO VISIT HER ONCE IN A WHILE. PT REPORTS BEING HIV POSITIVE FOR 30 PLUS YEARS AND HIS MEDICATIONS COSTS OVER $3000 PER MONTH AND HE GETS HIS EXPENSIVE MEDICATIONS FROM [facility]. 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 PT REPORTS HE HAD BLUE CROSS PRIVATE OPTION BUT WAS DROPPED WHEN HE BECAME MEDICARE ELIGIBLE AND HAS TO REAPPLY FOR MEDICAID. PT REPORTS HAVING BIPOLAR AND MAJOR DEPRESSIVE DISORDER. CM EXPLAINED THAT CM WILL NEED TO COMPLETE BJORN SCREENING WITH PT'S ASSISTANCE. CM ALSO EXPLAINED THAT CM WILL BE CALLING ADULT PROTECTIVE SERVICES WITH PT'S ALLEGATION OF NEGLECT BY HIS PARENTS. CM EXPLAINED THAT PT'S MEDICATIONS MAY BE TOO EXPENSIVE TO ENTER [facility] F[facility] FACILITY; PT STATES IF THAT IS A PROBLEM HE COULD JUST NOT TAKE THE EXPENSIVE HIV MEDICATIONS. CM EXPLAINED PLACEMENT PROCESS AND BJORN SCREENING PROCESS. CM PROVIDED CHOICE LISTING FOR NURSING HOMES, PT SIGNED CHOICE FOR ANY IN [place]. CM CALLED ADULT PROTECTIVE SERVICES, , PROVIDED REFERRAL FOR ALLEGATIONS OF NEGLECT. . CM TO COMPLETE BJORN SCREENING AND SEND REFERRALS TO ALL FPC'S IN [place] FOR SKILLED AND PRISON CARE PLACEMENT CONSIDERATION SOON POSSIBLE. Kiel Goff, CASE MANAGEMENT DCPIA - Discharge Planning Initial Assessment Updated by [id number]: Kiel Goff on 03/07/19 4:26 pm * Is the patient Alert and Oriented? Yes * How many steps to enter\\exit or inside your home? * PCP DALLAS GUTHRIE, [facility] [place] * Pharmacy [facility] IN [facility] - HIV MEDICATIONS * Preadmission Environment Home with Family * ADLs Partial Dependent * Partial ADLs (Assistance needed) Bathing * Equipment Nebulizer Oxygen Rolling Walker Shower Chair * Other Equipment HOME AND PORTABLE OXYGEN [facility] - MEDICAL EQUIPMENT PROVIDER * List name and contact numbers for known caregivers / representatives who currently or will assist patient after discharge: MARISOL LEWIS, MOTHER, * Verbal permission to speak to the caregivers and representatives has been obtained from the patient. No * Community resources currently utilized Other * Please name any agencies selected above. OUTPATIENT DIALYSIS, [facility], [facility], 1100, FAMILY TRANSPORTS * Additional services required to return to the preadmission environment? Yes * Can the patient safely return to the preadmission environment? No * Has this patient been hospitalized within the prior 30 days at any hospital? No Coverage Notice Reviewer: [id number] Goff Notice Issued Date-Time: 03/07/2019 16:10 Notice Type: Patient Choice Letter Notice Delivered To: Patient Relationship to Patient: Fish Conservationist Name: Delivery Method: HAND - Hand Delivered Gunjan Days: Prior Verbal Notification: Recipient Understood Notice: Yes Recipient Signature: Yes Med Rec Note Co-signed by Attending: Coverage Notice Comment: ANY NURSING FACILITY IN [place] Reviewer: [id number] Sam Goff Notice Issued Date-Time: 03/08/2019 9:25 Notice Type: Patient Choice Letter Notice Delivered To: Patient Relationship to Patient: Fish Conservationist Name: Delivery Method: HAND - Hand Delivered Gunjan Days: Prior Verbal Notification: Recipient Understood Notice: Yes Recipient Signature: Yes Med Rec Note Co-signed by Attending: Coverage Notice Comment: [facility] Reviewer: [id number] Goff Notice Issued Date-Time: 03/09/2019 17:00 Notice Type: IM Discharge Notice Notice Delivered To: Patient Relationship to Patient: Fish Conservationist Name: Delivery Method: HAND - Hand Delivered Gunjan Days: Prior Verbal Notification: Recipient Understood Notice: Yes Recipient Signature: Yes Med Rec Note Co-signed by Attending: Coverage Notice Comment: Reviewer: [id number] Sam Gutiérrez Notice Issued Date-Time: 03/13/2019 15:45 Notice Type: IM Discharge Notice Notice Delivered To: Patient Relationship to Patient: Self Fish Conservationist Name: Delivery Method: HAND - Hand Delivered Gunjan Days: Prior Verbal Notification: Recipient Understood Notice: Yes Recipient Signature: Yes Med Rec Note Co-signed by Attending: Coverage Notice Comment: Last DP export: 03/13/19 3:17 p Patient Name: HALLIE COE Page [id number] at 1504 All edits/amendments must be made on the electronic document DICTATION DATE: 03/14/19 1504 RAILROAD SIGNAL OPERATOR: EDU 03/14/19 1504 RPT#: [id number] DC DATE:03/13/19 STATUS: DIS IN [facility] [address] [place] [address] END OF REPORT
== END 2019-03-13 17:45 | disposition home health service (06) | DRG 252 ==
LOC: D.SDCHOLD 14:15 → D.ICU 16:53 → D.M2 16:53 → D.ICU 03-09 19:23
PROVIDERS: Surgery; ADMIT Internal Medicine Nephrology; ATTEND Internal Medicine Nephrology
PROC: 5A1D70Z Performance of Urinary Filtration, Intermittent, Less than 6 Hours Per Day (ICD-10-PCS; 2019-03-06)
PROC: 5A1D70Z Performance of Urinary Filtration, Intermittent, Less than 6 Hours Per Day (ICD-10-PCS; 2019-03-08)
PROC: 05HN33Z Insertion of Infusion Device into Left Internal Jugular Vein, Percutaneous Approach (ICD-10-PCS; 2019-03-08)
PROC: B544ZZA Ultrasonography of Left Jugular Veins, Guidance (ICD-10-PCS; 2019-03-08)
PROC: 05PY0YZ Removal of Other Device from Upper Vein, Open Approach (ICD-10-PCS; principal; 2019-03-08 11:00)
DX: T82.7XXA Infection and inflammatory reaction due to other cardiac and vascular devices, implants and grafts, initial encounter (principal); A41.2 Sepsis due to unspecified staphylococcus; N18.6 End stage renal disease; B20 Human immunodeficiency virus [HIV] disease; I12.0 Hypertensive chronic kidney disease with stage 5 chronic kidney disease or end stage renal disease; Z68.1 Body mass index [BMI] 19.9 or less, adult; R45.851 Suicidal ideations; E83.42 Hypomagnesemia; J44.9 Chronic obstructive pulmonary disease, unspecified; F32.9 Major depressive disorder, single episode, unspecified; R19.7 Diarrhea, unspecified; D64.9 Anemia, unspecified; R63.0 Anorexia; Z99.81 Dependence on supplemental oxygen; Y83.9 Surgical procedure, unspecified as the cause of abnormal reaction of the patient, or of later complication, without mention of misadventure at the time of the procedure; R62.7 Adult failure to thrive; B95.7 Other staphylococcus as the cause of diseases classified elsewhere